=== PATIENT | male | born 1955 | race Caucasian/White ===

== ENCOUNTER 2018-06-28 12:57 | Inpatient (IN) | payer OTHER ==
[~2018-06-28] VITALS: Ht 177.8 cm; Wt 61.1 kg
[2018-06-28] MEDS ORDERED: SOD CHLORIDE 0.9% 1,000 ML IV STA (13:21)
[2018-06-28] MEDS ORDERED: LANT3I SC (14:54)
--- NOTE | 2018-06-28 16:55 | ERD ---
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 The patient resides at a boarding care facility and was sitting down in a chair and starting to eat lunch when he felt a bit dizzy,. The patient then was syncopal for 1-2 minutes. When he woke up he felt just generalized weakness. He denies having any headache chest pain or shortness of breath prior to syncope. No recent illness no trauma. ROS All systems reviewed and are negative except as per history of present illness. Medications Home Meds Reported Medications Insulin Glargine* (Lantus*) 100 Unit/Ml Soln, 30 UNIT SC BID, #1 VIAL 06/28/18 Allergies Allergies: Coded Allergies: No Known Allergy (Unverified , 06/28/18) PMhx/Soc Hx Alcohol Use: No Hx Substance Use: No Hx Tobacco Use: No Smoking Status: Never smoker FmHx Family History: No coronary disease Physical Exam Vitals Vital Signs Date Temp Pulse Resp B/P (MAP) Pulse Ox O2 O2 Flow FiO2 Time Delivery Rate 06/28/18 98.9 66 18 122/81 99 13:11 (95) Physical Exam Const: [Well-developed, well-nourished] Head: [Atraumatic, normocephalic] Eyes: [Normal Conjunctiva, PERRLA, EOMI, normal sclera, no nystagmus] ENT: [Normal External Ears, Nose and Mouth, moist mucus membranes.] Neck: [Full range of motion. No meningismus, no lymphadenopathy.] Resp: [Clear to auscultation bilaterally, no wheezing, rhonchi, rales] Cardio: [Regular rate and rhythm, no murmurs, S1 S2 present] Abd: [Soft, non tender x 4, non distended. Normal bowel sounds, no guarding or rebound, no pulsitile abdominal masses or bruits] Skin: [No petechiae or rashes, no ecchymosis , no maculopapular rash] Back: [No midline or flank tenderness] Ext: [No cyanosis, or edema, FROM x 4, normal inspection, neurovascularly intact x 4] Neur: [Awake and alert, STR 5/5 x 4, sensation intact x 4, no focal findings, cerebellum intact] Psych: [Normal Mood and Affect] Result Diagram: 06/28/18 1329 06/28/18 1329 Results 24 hrs Laboratory Tests Test 06/28/18 13:21 06/28/18 13:29 Bedside Glucose 157 mg/dL White Blood Count 11.5 10^3/ul Red Blood Count 4.09 10^6/ul Hemoglobin 11.9 g/dl Hematocrit 35.7 % Mean Corpuscular Volume 87.3 fl Mean Corpuscular Hemoglobin 29.1 pg Mean Corpuscular Hemoglobin Concent 33.3 g/dl Red Cell Distribution Width 13.2 % Platelet Count 222 10^3/UL Mean Platelet Volume 10.1 fl Immature Granulocytes % 0.300 % Neutrophils % 73.0 % Lymphocytes % 16.8 % Monocytes % 5.3 % Eosinophils % 4.3 % Basophils % 0.3 % Nucleated Red Blood Cells % 0.0 /100WBC Immature Granulocytes # 0.040 10^3/ul Neutrophils # 8.4 10^3/ul Lymphocytes # 1.9 10^3/ul Monocytes # 0.6 10^3/ul Eosinophils # 0.5 10^3/ul Basophils # 0.0 10^3/ul Nucleated Red Blood Cells # 0.0 10^3/ul Sodium Level 142 mmol/L Potassium Level 3.2 mmol/L Chloride Level 106 mmol/L Carbon Dioxide Level 28 mmol/L Anion Gap 8 Blood Urea Nitrogen 10 mg/dl Creatinine 0.55 mg/dl Est Glomerular Filtrat Rate mL/min > 60 mL/min Glucose Level 159 mg/dl Calcium Level 8.9 mg/dl Troponin I < 0.012 ng/ml Current Medications Medications Dose Sig/Dante Start Time Status Last (Trade) Ordered Route PRN Stop Time Admin Dose Reason Admin Sodium 1,000 ml @ Q1H STAT 06/28/18 DC 06/28/18 Chloride 1,000 mls/hr IV 13:21 14:06 06/28/18 14:20 Procedures/MDM Patient: PAM GREENFIELD : 1955 Age: 62 Sex: M MR #: [id number] DOS: 06/28/18 1321 Ordering MD: ESTEFANÍA HAWTHORNE DO Location: E/R Room/Bed: PROCEDURE: CT Brain without contrast. CLINICAL INDICATION: Syncope TECHNIQUE: CT scan of the brain was performed on a multidetector high- resolution CT scan. Axial imaging was obtained of the brain without contrast administration. Coronal and sagittal reformatted images were obtained from the axial source images. Standard CT scan of the head without contrast protocols were performed. The total exam CTDI equals 38.97 mGy and the total exam DLP equals 634.23 mGy- cm. One or more of the following dose reduction techniques were used: - Automated exposure control. - Adjustment of the mA and/or kV according to patient size. Use of iterative reconstruction technique. Dicom images are available COMPARISON: None. FINDINGS: The ventricular system and peripheral CSF spaces are proportionate prominent consistent with moderate generalized cerebral volume loss. No evidence of intracranial masses hemorrhages or midline shift. Mild periventricular deep white matter changes that is nonspecific and consistent with chronic microvascular ischemic disease. The lopez-white matter differentiation is unremarkable. Atherosclerotic vascular disease of the distal vertebral arteries and cavernous carotid arteries. The bones of the calvarium are intact. Mild soft tissue swelling along the posterior superior scalp. No underlying foreign body. IMPRESSION: 1. Moderate generalized cerebral volume loss and mild nonspecific chronic microvascular ischemic disease. 2. No evidence of intracranial masses hemorrhages or midline shift. 3. Mild soft tissue swelling posterior superior scalp without foreign body or underlying calvarial fracture. RPTAT:AAJJ Physician Rohan Date Time Electronically viewed and signed by Physician Rohan on 06/28/2018 14:03 BM/ CC: ESTEFANÍA HAWTHORNE DO [id number] MR #: [id number] DOS: 06/28/18 1321 Ordering MD: ESTEFANÍA HAWTHORNE DO Location: E/R Room/Bed: PROCEDURE: XR Chest. CLINICAL INDICATION: Chest pain TECHNIQUE: Single frontal chest x-ray. COMPARISON: None. FINDINGS: No acute infiltrate, pleural effusion or pneumothorax is identified. Cardiomediastinal silhouette is within normal limits. Aortic atherosclerotic calcification is noted. The osseous structures are remarkable for degenerative enthesopathy of the spine. IMPRESSION: 1. No evidence of acute cardiopulmonary process. 2. Aortic atherosclerosis. RPTAT: AAQQ .Niles Bruno MD, Date Time Electronically viewed and signed by .Niles Bruno MD, on 06/28/2018 14:00 .R/ CC: ESTEFANÍA HAWTHORNE DO [id number] EKG: Rate/Rhythm: Normal Sinus Rhythm,NL intervals QRS, ST, QT: NORMAL TN, QRS, prolonged QT] Impression: Abnormal EKG Patient's syncopal symptoms are unstable at this time and require inpatient workup. No evidence of PE or dissection at this time but occult ischemia or fatal dysrhythmia cannot be ruled out. Departure Diagnosis: Primary Impression: Syncope Syncope type: unspecified Qualified Codes: R55 - Syncope and collapse Condition: Stable ESTEFANÍA HAWTHORNE DO Jun 28, 2018 16:55
[2018-06-28] MEDS ORDERED: SOD CHLORIDE 0.9% 1,000 ML IV SCH (17:17)
[2018-06-28] MEDS ORDERED: ONDANSETRON 4 MG INJ IV PRN ×2 (17:30→20:00)
[2018-06-28] MEDS ORDERED: ACETAMINOPHEN 325 MG TAB PO PRN (17:30)
[2018-06-28] MEDS ORDERED: NACL 0.9% 3 ML SYG IV SCH (20:00)
[2018-06-28] MEDS ORDERED: morphine 2 MG INJ IV PRN (20:00)
[2018-06-28 20:22] VITALS: PULSE 72
[2018-06-28 20:38] VITALS: BP 129/70; PULSE 69; RESP 18
[2018-06-28 20:39] VITALS: Ht 177.8 cm; Wt 61.1 kg
[2018-06-28] MEDS: FAMOTIDINE 20 MG INJ IV SCH (21:33)
[2018-06-28] MEDS: LORAZEPAM 1 MG TAB PO PRN (22:29)
[2018-06-29] VITALS (11 sets, daily range): BP systolic 108–141; BP diastolic 59–83; PULSE 60–75; RESP 18–20
[2018-06-29] MEDS: FAMOTIDINE 20 MG INJ IV SCH (08:26)
[2018-06-29] MEDS: ENOXAPARIN 30 MG/0.3 ML SYG SC SCH (08:32)
--- NOTE | 2018-06-29 12:05 | RADRPT ---
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 Physician: LUCIUS KISER Quality: Good Procedures: Transthoracic echocardiogram with complete 2D, M-Mode, and doppler examination. Indications: Syncope. 2D/M Mode Doppler Measurement Value Normal Ranges Measurement Value Normal Ranges LVIDd 2D 4.9 3.5 - 5.6 cm AV Peak Caleb 0.8 m/sec LVIDs 2D 2.6 2.1 - 4.1 cm AV Peak PG 3.0 mmHg LVPWd 2D 0.9 0.6 - 1.1 cm LVOT Peak Caleb 0.6 m/sec IVSd 2D 1.0 0.6 - 1.1 cm LVOT Peak PG 1.0 mmHg AoR Diam 2D 3.5 2.0 - 3.7 cm MV E Peak Caleb 0.6 m/sec LA/Ao 2D 1 0 - 1 MV A Peak Caleb 0.4 m/sec LA Dimen 2D 2.8 2.3 - 4.0 cm MV E/A 1.4 MV Decel Time 194 msec Lat E` Caleb 0.1 m/sec Lateral E/E` 4.2 MV E/A 1.4 TR Peak Caleb 2.4 m/sec TR Peak PG 23.0 mmHg RVSP 26.0 mmHg RA Pressure 3.0 Findings Left Ventricle: Overall, normal left ventricular systolic function. Not all segments visualized. Normal left ventricular cavity size. Normal left ventricular wall thickness. Ejection fraction is visually estimated at 60 %. Right Ventricle: Normal right ventricular size. Normal right ventricular systolic function. Left Atrium: The left atrium is normal in size. Right Atrium: The right atrium is normal in size. Mitral Valve: Normal appearance and function of the mitral valve with trace physiologic regurgitation. Aortic Valve: Normal appearance of the aortic valve. No significant aortic stenosis or insufficiency. Tricuspid Valve: Normal appearance of the tricuspid valve. Estimated peak PA systolic pressure 26 mmHg. There is trace tricuspid regurgitation. Pulmonic Valve: Normal pulmonic valve appearance. Pericardium: Normal pericardium with no significant pericardial effusion. Aorta: Normal aortic root. IVC: Normal size and normal respiratory collapse consistent with normal right atrial pressure. Conclusions Overall, normal left ventricular systolic function. Not all segments visualized. Normal left ventricular cavity size. Normal left ventricular wall thickness. Ejection fraction is visually estimated at 60 %. Normal right ventricular size. Normal right ventricular systolic function. The left atrium is normal in size. The right atrium is normal in size. No significant valvular stenosis or regurgitation seen. Normal pericardium with no significant pericardial effusion. Electronically Signed By: Vic Evans 29-Jun-2018 12:05:03 -0800 Patient Name: PAM GREENFIELD Study Date: 29-Jun-2018 [id number]
--- NOTE | 2018-06-29 14:50 | HP ---
Date/Time of Note Date/Time of Note DATE: 06/29/18 TIME: 14:48 Assessment/Plan VTE Prophylaxis [place] [facility] [place] risk: 3 SCD applied [place] [facility] No SCD contraindicated: other Pharmacological prophylaxis: LMWH Lines/Catheters IV Catheter Type (from [facility]): Peripheral IV Assessment/Plan Hospital Course 1) syncope - monitor on telemetry - check 2d echo - check carotid doppler 2) diabetes - monitor blood sugar Result Diagram: 06/29/18 0611 06/29/18 0611 Results 24hrs Laboratory Tests Test 06/29/18 06:11 White Blood Count 9.3 Red Blood Count 3.99 L Hemoglobin 11.4 L Hematocrit 34.1 L Mean Corpuscular Volume 85.5 Mean Corpuscular Hemoglobin 28.6 L Mean Corpuscular Hemoglobin Concent 33.4 Red Cell Distribution Width 12.9 Platelet Count 207 Mean Platelet Volume 10.7 H Immature Granulocytes % 0.200 Neutrophils % 56.8 Lymphocytes % 29.2 Monocytes % 7.6 Eosinophils % 5.8 Basophils % 0.4 Nucleated Red Blood Cells % 0.0 Immature Granulocytes # 0.020 Neutrophils # 5.3 Lymphocytes # 2.7 Monocytes # 0.7 Eosinophils # 0.5 Basophils # 0.0 Nucleated Red Blood Cells # 0.0 Sodium Level 141 Potassium Level 3.7 Chloride Level 106 Carbon Dioxide Level 29 Anion Gap 6 Blood Urea Nitrogen 8 Creatinine 0.53 L Est Glomerular Filtrat Rate mL/min > 60 Glucose Level 280 #H Hemoglobin A1c 8.0 H Calcium Level 8.8 Total Bilirubin 0.2 Direct Bilirubin 0.00 Indirect Bilirubin 0.2 Aspartate Amino Transf (AST/SGOT) 17 Alanine Aminotransferase (ALT/SGPT) 19 Alkaline Phosphatase 103 Total Protein 6.2 Albumin 3.2 L Globulin 3.00 Albumin/Globulin Ratio 1.06 HPI/ROS Admit Date/Time Admit Date/Time Jun 28, 2018 at 17:18 Hx of Present Illness Patient with diabetes comes in after having a syncopal episodes lasting several minutes. Patient has no residuals. He states that he has had episodes like this in the past related to narcotic pain medication use. PMH/Family/Social Past Medical History Medical History: diabetes Medications Current Medications IV Flush (NS 3 ml) 3 ml PER PROTOCOL IV ; Start 06/28/18 at 20:00 Ondansetron HCl (Zofran Inj) 4 mg Q6H PRN IV NAUSEA AND/OR VOMITING; Start 06/28/18 at 20:00 Morphine Sulfate (morphine) 2 mg Q4H PRN IV PAIN LEVEL 7-10; Start 06/28/18 at 20:00 Famotidine (Pepcid Iv) 20 mg Q12 IV Last administered on 06/29/18at 08:26; Admin Dose 20 MG; Start 06/28/18 at 21:00 Enoxaparin Sodium (Lovenox) 30 mg DAILY SC Last administered on 06/29/18at 08:32; Admin Dose 30 MG; Start 06/29/18 at 09:00 Lorazepam (Ativan) 1 mg Q6H PRN PO ANXIETY Last administered on 06/28/18at 22:29; Admin Dose 1 MG; Start 06/28/18 at 22:00 Coded Allergies: No Known Allergy (Unverified , 06/28/18) Social History Smoking Status: Current every day smoker Exam/Review of Systems Vital Signs Vitals Vital Signs Date Temp Pulse Resp B/P (MAP) Pulse Ox O2 O2 Flow FiO2 Time Delivery Rate 06/29/18 67 12:24 06/29/18 98.7 19 123/70 98 Room Air 11:15 (87) Intake and Output 06/28/18 06/28/18 06/29/18 1515:00 23:00 07:00 IntakeIntake Total 800 ml OutputOutput Total 700 ml BalanceBalance 100 ml Exam Constitutional: well developed Head: normocephalic, atraumatic Neck: supple Respiratory: clear to auscultation Cardiovascular: regular rate and rhythm Gastrointestinal: soft, non-tender Extremities: normal pulses LUCIUS KISER Jun 29, 2018 14:50
[2018-06-29] MEDS: LORAZEPAM 1 MG TAB PO PRN ×2 (14:56→21:12)
[2018-06-29] MEDS ORDERED: GLUCOSE GEL 15 GRAM TUBE PO PRN ×2 (16:30)
[2018-06-29] MEDS ORDERED: GLUCAGON 1 MG INJ IM PRN (16:30)
[2018-06-29] MEDS ORDERED: DEXTROSE 50% 50 ML SYRINGE IV PRN ×2 (16:30)
[2018-06-29] MEDS ORDERED: GLUCOSE GEL 15 GRAM TUBE BUCCAL PRN (16:30)
[2018-06-29] MEDS: INSULIN ASPART [NOVOLOG] 3 ML PEN SC SCH ×2 (17:39→21:23)
[2018-06-29] MEDS: FAMOTIDINE 20 MG TAB PO SCH (20:16)
[2018-06-29] MEDS: INSULIN GLARGINE [LANTus] (100 UNITS/ML) SYG SC SCH (21:23)
[2018-06-30] VITALS (13 sets, daily range): BP systolic 128–157; BP diastolic 58–86; PULSE 2–75; RESP 16–20
[2018-06-30] MEDS: ACCUCHECK AT 2AM (Patients on SS coverage) XX SCH (02:00)
[2018-06-30] MEDS: morphine LIQ (10 MG/5 ML) CUP PO PRN ×2 (02:23→21:13)
[2018-06-30] MEDS: LORAZEPAM 1 MG TAB PO PRN ×2 (03:08→16:03)
[2018-06-30] MEDS: INSULIN ASPART [NOVOLOG] 3 ML PEN SC SCH ×4 (08:13→21:17)
[2018-06-30] MEDS: FAMOTIDINE 20 MG TAB PO SCH ×2 (09:20→21:07)
[2018-06-30] MEDS: ENOXAPARIN 30 MG/0.3 ML SYG SC SCH (09:26)
[2018-06-30] MEDS: INSULIN GLARGINE [LANTus] (100 UNITS/ML) SYG SC SCH ×2 (09:26→21:17)
--- NOTE | 2018-06-30 11:36 | PN ---
Date/Time of Note Date/Time of Note DATE: 06/30/18 TIME: 11:35 Assessment/Plan VTE Prophylaxis [place] [facility] [place]: 3 [place]CD [place] [facility] [place] No SCD contraindicated: other Pharmacological prophylaxis: LMWH Lines/Catheters IV Catheter Type (from [facility]): Saline Lock Assessment/Plan Hospital Course 1) syncope - monitor on telemetry - check 2d echo - check carotid doppler 2) diabetes - monitor blood sugar 3) debilitation - PT eval and treat Result Diagram: 06/29/18 0611 06/29/18 0611 Results 24hrs Laboratory Tests Test 06/29/18 17:20 06/29/18 17:22 06/29/18 20:15 06/30/18 02:03 Bedside Glucose 426 *H 397 H 482 *H 333 H Test 06/30/18 07:58 Bedside Glucose 294 H Subjective 24 Hr Interval Summary Free Text/Dictation Patient feels weak Exam/Review of Systems Vital Signs Vitals Vital Signs Date Temp Pulse Resp B/P (MAP) Pulse Ox O2 O2 Flow FiO2 Time Delivery Rate 06/30/18 73 08:30 06/30/18 98.7 18 137/77 96 Room Air 07:45 (97) Intake and Output 06/29/18 06/29/18 06/30/18 1515:00 23:00 07:00 IntakeIntake Total 1300 ml 600 ml OutputOutput Total 1100 ml 1450 ml BalanceBalance 200 ml -850 ml Exam Constitutional: well developed Head: normocephalic, atraumatic Neck: supple Respiratory: diminished breath sounds Cardiovascular: regular rate and rhythm Gastrointestinal: soft, non-tender Extremities: normal pulses Medications Medications Current Medications IV Flush (NS 3 ml) 3 ml PER PROTOCOL IV ; Start 06/28/18 at 20:00 Ondansetron HCl (Zofran Inj) 4 mg Q6H PRN IV NAUSEA AND/OR VOMITING; Start 06/28/18 at 20:00 Enoxaparin Sodium (Lovenox) 30 mg DAILY SC Last administered on 06/30/18at 09:26; Admin Dose 30 MG; Start 06/29/18 at 09:00 Lorazepam (Ativan) 1 mg Q6H PRN PO ANXIETY Last administered on 06/30/18at 03:08; Admin Dose 1 MG; Start 06/28/18 at 22:00 Insulin Aspart (Novolog Insulin Pen) NOVOLOG *MODERATE* ALGORITHM WITH MEALS BEDTIME SC Last administered on 06/30/18at 08:13; Admin Dose 8 UNIT; Start 06/29/18 at 17:55 Miscellaneous Information 1 ea NOTE XX ; Start 06/29/18 at 16:30 Glucose (Glutose) 15 gm Q15M PRN PO DECREASED GLUCOSE; Start 06/29/18 at 16:30 Glucose (Glutose) 22.5 gm Q15M PRN PO DECREASED GLUCOSE; Start 06/29/18 at 16:30 Dextrose (D50w Syringe) 25 ml Q15M PRN IV DECREASED GLUCOSE; Start 06/29/18 at 16:30 Dextrose (D50w Syringe) 50 ml Q15M PRN IV DECREASED GLUCOSE; Start 06/29/18 at 16:30 Glucagon (Glucagen) 1 mg Q15M PRN IM DECREASED GLUCOSE; Start 06/29/18 at 16:30 Glucose (Glutose) 15 gm Q15M PRN BUCCAL DECREASED GLUCOSE; Start 06/29/18 at 16:30 Diagnostic Test (Pha) (Accu-Chek) 1 ea 02 XX ; Start 06/30/18 at 02:00 Famotidine (Pepcid) 20 mg Q12 PO Last administered on 06/30/18at 09:20; Admin Dose 20 MG; Start 06/29/18 at 21:00 Insulin Glargine (Lantus) 30 units BID SC Last administered on 06/30/18at 09:26; Admin Dose 30 UNITS; Start 06/29/18 at 21:00 Morphine Sulfate (morphine) 6 mg Q4H PRN PO SEVERE PAIN LEVEL 7-10 Last administered on 06/30/18at 02:23; Admin Dose 6 MG; Start 06/29/18 at 22:30 LUCIUS KISER Jun 30, 2018 11:35
[2018-06-30] MEDS: SOD CHLORIDE 0.9% 1,000 ML IV SCH ×2 (12:03→21:22)
[2018-07-01] VITALS (10 sets, daily range): BP systolic 113–135; BP diastolic 62–73; PULSE 65–74; RESP 18–20
[2018-07-01] MEDS: ACCUCHECK AT 2AM (Patients on SS coverage) XX SCH (02:11)
[2018-07-01] MEDS: SOD CHLORIDE 0.9% 1,000 ML IV SCH ×2 (07:27→17:17)
[2018-07-01] MEDS: INSULIN ASPART [NOVOLOG] 3 ML PEN SC SCH ×4 (07:45→20:25)
[2018-07-01] MEDS: FAMOTIDINE 20 MG TAB PO SCH ×2 (09:33→20:10)
[2018-07-01] MEDS: ENOXAPARIN 30 MG/0.3 ML SYG SC SCH (09:36)
[2018-07-01] MEDS: INSULIN GLARGINE [LANTus] (100 UNITS/ML) SYG SC SCH ×2 (12:10→20:24)
[2018-07-01] MEDS: LORAZEPAM 1 MG TAB PO PRN ×2 (12:34→20:11)
--- NOTE | 2018-07-01 13:14 | PN ---
Date/Time of Note Date/Time of Note DATE: 07/01/18 TIME: 13:13 Assessment/Plan VTE Prophylaxis Risk score (from [facility]0 risk: 5 [place] [facility] [place] SCD contraindicated: other Pharmacological prophylaxis: LMWH Lines/Catheters IV Catheter Type (from [facility]): Saline Lock Assessment/Plan Hospital Course 1) syncope - monitor on telemetry - check 2d echo - check carotid doppler 2) diabetes - monitor blood sugar 3) debilitation - PT eval and treat Result Diagram: 06/29/18 0611 06/29/18 0611 Results 24hrs Laboratory Tests Test 06/30/18 17:23 06/30/18 21:10 07/01/18 02:10 07/01/18 07:31 Bedside Glucose 189 287 H 267 H 236 H Test 07/01/18 12:02 Bedside Glucose 195 Subjective 24 Hr Interval Summary Free Text/Dictation Patient continues to complain of feeling weak, still awaiting physical therapy Exam/Review of Systems Vital Signs Vitals Vital Signs Date Temp Pulse Resp B/P (MAP) Pulse Ox O2 O2 Flow FiO2 Time Delivery Rate 07/01/18 71 12:14 07/01/18 97.7 19 130/63 98 11:36 (85) 06/30/18 Room Air 23:40 Intake and Output 06/30/18 06/30/18 07/01/18 1515:00 23:00 07:00 IntakeIntake Total 1980 ml 960 ml OutputOutput Total 1050 ml 1200 ml BalanceBalance 930 ml -240 ml Exam Constitutional: well developed Head: normocephalic, atraumatic Neck: supple Respiratory: clear to auscultation Cardiovascular: regular rate and rhythm Gastrointestinal: soft, non-tender Extremities: normal pulses Medications Medications Current Medications IV Flush (NS 3 ml) 3 ml PER PROTOCOL IV ; Start 06/28/18 at 20:00 Ondansetron HCl (Zofran Inj) 4 mg Q6H PRN IV NAUSEA AND/OR VOMITING; Start 06/28/18 at 20:00 Enoxaparin Sodium (Lovenox) 30 mg DAILY SC Last administered on 07/01/18at 09:36; Admin Dose 30 MG; Start 06/29/18 at 09:00 Lorazepam (Ativan) 1 mg Q6H PRN PO ANXIETY Last administered on 07/01/18at 12:34; Admin Dose 1 MG; Start 06/28/18 at 22:00 Insulin Aspart (Novolog Insulin Pen) NOVOLOG *MODERATE* ALGORITHM WITH MEALS BEDTIME SC Last administered on 07/01/18at 12:09; Admin Dose 4 UNIT; Start 06/29/18 at 17:55 Miscellaneous Information 1 ea NOTE XX ; Start 06/29/18 at 16:30 Glucose (Glutose) 15 gm Q15M PRN PO DECREASED GLUCOSE; Start 06/29/18 at 16:30 Glucose (Glutose) 22.5 gm Q15M PRN PO DECREASED GLUCOSE; Start 06/29/18 at 16:30 Dextrose (D50w Syringe) 25 ml Q15M PRN IV DECREASED GLUCOSE; Start 06/29/18 at 16:30 Dextrose (D50w Syringe) 50 ml Q15M PRN IV DECREASED GLUCOSE; Start 06/29/18 at 16:30 Glucagon (Glucagen) 1 mg Q15M PRN IM DECREASED GLUCOSE; Start 06/29/18 at 16:30 Glucose (Glutose) 15 gm Q15M PRN BUCCAL DECREASED GLUCOSE; Start 06/29/18 at 16:30 Diagnostic Test (Pha) (Accu-Chek) 1 ea 02 XX Last administered on 07/01/18at 02:11; Admin Dose 1 EA; Start 06/30/18 at 02:00 Famotidine (Pepcid) 20 mg Q12 PO Last administered on 07/01/18at 09:33; Admin Dose 20 MG; Start 06/29/18 at 21:00 Insulin Glargine (Lantus) 30 units BID SC Last administered on 07/01/18at 12:1 0; Admin Dose 30 UNITS; Start 06/29/18 at 21:00 Morphine Sulfate (morphine) 6 mg Q4H PRN PO SEVERE PAIN LEVEL 7-10 Last administered on 06/30/18 21:13; Admin Dose 6 MG; Start 06/29/18 at 22:30 Sodium Chloride 1,000 ml @ 100 mls/hr Q10H IV Last administered on 07/01/18at 07:27; Admin Dose 100 MLS/HR; Start 06/30/18 at 12:00 LUCIUS KISER Jul 01, 2018 13:14
[2018-07-01] MEDS: morphine LIQ (10 MG/5 ML) CUP PO PRN (17:19)
[2018-07-01] MEDS ORDERED: SALINE 0.65% 45 ML NAS SPRAY NASAL SCH (20:00)
[2018-07-01] MEDS: DIPHENHYDRAMINE 50 MG INJ IV PRN (20:11)
[2018-07-02] VITALS (11 sets, daily range): BP systolic 101–125; BP diastolic 59–74; PULSE 69–85; RESP 16–19
[2018-07-02] MEDS: ACCUCHECK AT 2AM (Patients on SS coverage) XX SCH (02:00)
[2018-07-02] MEDS: SOD CHLORIDE 0.9% 1,000 ML IV SCH ×3 (02:28→22:06)
[2018-07-02] MEDS: INSULIN ASPART [NOVOLOG] 3 ML PEN SC SCH ×4 (07:54→21:37)
[2018-07-02] MEDS: FAMOTIDINE 20 MG TAB PO SCH ×2 (09:07→21:33)
[2018-07-02] MEDS: ENOXAPARIN 30 MG/0.3 ML SYG SC SCH (09:14)
[2018-07-02] MEDS: LORAZEPAM 1 MG TAB PO PRN ×2 (12:13→18:20)
[2018-07-02] MEDS: INSULIN GLARGINE [LANTus] (100 UNITS/ML) SYG SC SCH ×2 (12:35→21:49)
--- NOTE | 2018-07-02 13:36 | PN ---
Date/Time of Note Date/Time of Note DATE: 07/02/18 TIME: 13:36 Assessment/Plan VTE Pro[place]axis [place] [facility] [place]: 6 [place] [facility] [place] No SCD contraindicated: other Pharmacological prophylaxis: LMWH Lines/Catheters IV Catheter Type (from [facility] Saline Lock Assessment/Plan Hospital Course 1) syncope - monitor on telemetry - check 2d echo - check carotid doppler 2) diabetes - monitor blood sugar 3) debilitation - PT eval and treat Result Diagram: 06/29/18 0611 06/29/18 0611 Results 24hrs Laboratory Tests Test 07/01/18 17:10 07/01/18 20:19 07/02/18 02:21 07/02/18 07:58 Bedside Glucose 170 318 H 166 55 L Test 07/02/18 09:05 07/02/18 09:06 07/02/18 09:11 07/02/18 12:13 Bedside Glucose 79 95 96 114 Subjective 24 Hr Interval Summary Free Text/Dictation Patient still weak but at least he seems to be more awake Exam/Review of Systems Vital Signs Vitals Vital Signs Date Temp Pulse Resp B/P (MAP) Pulse Ox O2 O2 Flow FiO2 Time Delivery Rate 07/02/18 76 12:11 07/02/18 98.2 18 120/67 97 12:04 (84) 07/02/18 Room Air 07:43 Intake and Output 07/01/18 07/01/18 07/02/18 1515:00 23:00 07:00 IntakeIntake Total 1400 ml 1700 ml OutputOutput Total 200 ml BalanceBalance 1400 ml 1500 ml Exam Head: normocephalic, atraumatic Neck: supple Respiratory: diminished breath sounds Cardiovascular: regular rate and rhythm Gastrointestinal: soft, non-tender Extremities: normal pulses Medications Medications Current Medications IV Flush (NS 3 ml) 3 ml PER PROTOCOL IV ; Start 06/28/18 at 20:00 Ondansetron HCl (Zofran Inj) 4 mg Q6H PRN IV NAUSEA AND/OR VOMITING; Start 06/28/18 at 20:00 Enoxaparin Sodium (Lovenox) 30 mg DAILY SC Last administered on 07/02/18at 09:14; Admin Dose 30 MG; Start 06/29/18 at 09:00 Lorazepam (Ativan) 1 mg Q6H PRN PO ANXIETY Last administered on 07/02/18at 12:13; Admin Dose 1 MG; Start 06/28/18 at 22:00 Insulin Aspart (Novolog Insulin Pen) NOVOLOG *MODERATE* ALGORITHM WITH MEALS BEDTIME SC Last administered on 07/01/18at 20:25; Admin Dose 4 UNIT; Start 06/29/18 at 17:55 Miscellaneous Information 1 ea NOTE XX ; Start 06/29/18 at 16:30 Glucose (Glutose) 15 gm Q15M PRN PO DECREASED GLUCOSE; Start 06/29/18 at 16:30 Glucose (Glutose) 22.5 gm Q15M PRN PO DECREASED GLUCOSE; Start 06/29/18 at 16:30 Dextrose (D50w Syringe) 25 ml Q15M PRN IV DECREASED GLUCOSE; Start 06/29/18 at 16:30 Dextrose (D50w Syringe) 50 ml Q15M PRN IV DECREASED GLUCOSE; Start 06/29/18 at 16:30 Glucagon (Glucagen) 1 mg Q15M PRN IM DECREASED GLUCOSE; Start 06/29/18 at 16:30 Glucose (Glutose) 15 gm Q15M PRN BUCCAL DECREASED GLUCOSE Last administered on 07/02/18at 08:04; Admin Dose 15 GM; Start 06/29/18 at 16:30 Diagnostic Test (Pha) (Accu-Chek) 1 ea 02 XX Last administered on 07/01/18at 02:11; Admin Dose 1 EA; Start 06/30/18 at 02:00 Famotidine (Pepcid) 20 mg Q12 PO Last administered on 07/02/18at 09:07; Admin Dose 20 MG; Start 06/29/18 at 21:00 Morphine Sulfate (morphine) 6 mg Q4H PRN PO SEVERE PAIN LEVEL 7-10 Last administered on 07/01/18at 17:19; Admin Dose 6 MG; Start 06/29/18 at 22:30 Sodium Chloride 1,000 ml @ 100 mls/hr Q10H IV Last administered on 07/02/18at 02:28; Admin Dose 100 MLS/HR; Start 06/30/18 at 12:00 Diphenhydramine HCl (Benadryl) 25 mg Q6H PRN IV ITCHING Last administered on 07/01/18at 20:11; Admin Dose 25 MG; Start 07/01/18 at 19:30 Insulin Glargine (Lantus) 15 units 0900,2100 SC Last administered on 07/02/18at 12:35; Admin Dose 15 UNITS; Start 07/02/18 at 11:30 LUCIUS KISER Jul 02, 2018 13:36
[2018-07-02] MEDS: morphine LIQ (10 MG/5 ML) CUP PO PRN (16:55)
[2018-07-02] MEDS: DIPHENHYDRAMINE 50 MG INJ IV PRN (22:08)
[2018-07-03] MEDS: ACCUCHECK AT 2AM (Patients on SS coverage) XX SCH (01:17)
[2018-07-03] MEDS: LORAZEPAM 1 MG TAB PO PRN ×4 (01:17→21:51)
[2018-07-03 02:00] VITALS: BP 126/71; PULSE 71; RESP 16
[2018-07-03 07:20] VITALS: BP 103/59; PULSE 68; RESP 16
[2018-07-03] MEDS: SOD CHLORIDE 0.9% 1,000 ML IV SCH ×2 (07:48→17:54)
[2018-07-03] MEDS: INSULIN ASPART [NOVOLOG] 3 ML PEN SC SCH ×4 (09:30→21:18)
[2018-07-03] MEDS: FAMOTIDINE 20 MG TAB PO SCH ×2 (09:38→21:15)
[2018-07-03] MEDS: INSULIN GLARGINE [LANTus] (100 UNITS/ML) SYG SC SCH ×2 (09:39→21:16)
[2018-07-03] MEDS: ENOXAPARIN 30 MG/0.3 ML SYG SC SCH (09:40)
--- NOTE | 2018-07-03 13:22 | PN ---
Date/Time of Note Date/Time of Note DATE: 07/03/18 TIME: 13:22 Assessment/Plan VTE Prophylaxis Risk score (from Ns)>0 risk: 3 SCD applied (from Ns): Yes Pharmacological prophylaxis: LMWH Lines/Catheters IV Catheter Type (from Nrs): Saline Lock Assessment/Plan Hospital Course 1) syncope - monitor on telemetry - check 2d echo - check carotid doppler 2) diabetes - monitor blood sugar 3) debilitation - PT eval and treat Result Diagram: 06/29/18 0611 06/29/18 0611 Results 24hrs Laboratory Tests Test 07/02/18 17:32 07/02/18 21:32 07/03/18 01:20 07/03/18 09:18 Bedside Glucose 228 H 241 H 192 62 L Test 07/03/18 09:36 07/03/18 12:31 Bedside Glucose 87 125 Subjective 24 Hr Interval Summary Free Text/Dictation Patient continues to complain of feeling weak Exam/Review of Systems Vital Signs Vitals Vital Signs Date Temp Pulse Resp B/P (MAP) Pulse Ox O2 O2 Flow FiO2 Time Delivery Rate 07/03/18 98.0 68 16 103/59 95 Room Air 07:20 (74) Intake and Output 07/02/18 07/02/18 07/03/18 1515:00 23:00 07:00 IntakeIntake Total 950 ml 1400 ml 1100 ml OutputOutput Total 200 ml 850 ml BalanceBalance 950 ml 1200 ml 250 ml Exam Constitutional: well developed Head: normocephalic, atraumatic Neck: supple Respiratory: diminished breath sounds Cardiovascular: regular rate and rhythm Gastrointestinal: soft, non-tender Extremities: normal pulses Medications Medications Current Medications IV Flush (NS 3 ml) 3 ml PER PROTOCOL IV ; Start 06/28/18 at 20:00 Ondansetron HCl (Zofran Inj) 4 mg Q6H PRN IV NAUSEA AND/OR VOMITING; Start 06/28/18 at 20:00 Enoxaparin Sodium (Lovenox) 30 mg DAILY SC Last administered on 07/03/18at 09:40; Admin Dose 30 MG; Start 06/29/18 at 09:00 Lorazepam (Ativan) 1 mg Q6H PRN PO ANXIETY Last administered on 07/03/18at 09:38; Admin Dose 1 MG; Start 06/28/18 at 22:00 Insulin Aspart (Novolog Insulin Pen) NOVOLOG *MODERATE* ALGORITHM WITH MEALS BEDTIME SC Last administered on 07/02/18at 21:37; Admin Dose 2 UNIT; Start 06/29/18 at 17:55 Miscellaneous Information 1 ea NOTE XX ; Start 06/29/18 at 16:30 Glucose (Glutose) 15 gm Q15M PRN PO DECREASED GLUCOSE; Start 06/29/18 at 16:30 Glucose (Glutose) 22.5 gm Q15M PRN PO DECREASED GLUCOSE; Start 06/29/18 at 16:30 Dextrose (D50w Syringe) 25 ml Q15M PRN IV DECREASED GLUCOSE; Start 06/29/18 at 16:30 Dextrose (D50w Syringe) 50 ml Q15M PRN IV DECREASED GLUCOSE; Start 06/29/18 at 16:30 Glucagon (Glucagen) 1 mg Q15M PRN IM DECREASED GLUCOSE; Start 06/29/18 at 16:30 Glucose (Glutose) 15 gm Q15M PRN BUCCAL DECREASED GLUCOSE Last administered on 07/02/18at 08:04; Admin Dose 15 GM; Start 06/29/18 at 16:30 Diagnostic Test (Pha) (Accu-Chek) 1 ea 02 XX Last administered on 07/03/18 01:17; Admin Dose 1 EA; Start 06/30/18 at 02:00 Famotidine (Pepcid) 20 mg Q12 PO Last administered on 07/03/18 09:38; Admin Dose 20 MG; Start 06/29/18 at 21:00 Morphine Sulfate (morphine) 6 mg Q4H PRN PO SEVERE PAIN LEVEL 7-10 Last administered on 07/02/18at 16:55; Admin Dose 6 MG; Start 06/29/18 at 22:30 Sodium Chloride 1,000 ml @ 100 mls/hr Q10H IV Last administered on 07/03/18 07:48; Admin Dose 100 MLS/HR; Start 06/30/18 at 12:00 Diphenhydramine HCl (Benadryl) 25 mg Q6H PRN IV ITCHING Last administered on 07/02/18at 22:08; Admin Dose 25 MG; Start 07/01/18 at 19:30 Insulin Glargine (Lantus) 15 units 0900,2100 SC Last administered on 1/1/19at 09:39; Admin Dose 15 UNITS; Start 07/02/18 at 11:30 LUCIUS KISER Jul 03, 2018 13:22
[2018-07-03 14:31] VITALS: BP 109/60; PULSE 71; RESP 15
[2018-07-03 19:38] VITALS: BP 116/59; PULSE 74; RESP 16
[2018-07-03] MEDS: DIPHENHYDRAMINE 50 MG INJ IV PRN (22:25)
[2018-07-04 01:16] VITALS: BP 127/70; PULSE 79; RESP 16
[2018-07-04] MEDS: ACCUCHECK AT 2AM (Patients on SS coverage) XX SCH (02:00)
[2018-07-04] MEDS: SOD CHLORIDE 0.9% 1,000 ML IV SCH ×2 (05:15→17:01)
[2018-07-04] MEDS: DIPHENHYDRAMINE 50 MG INJ IV PRN ×2 (05:16→20:19)
[2018-07-04 07:54] VITALS: BP 131/78; PULSE 70; RESP 18
[2018-07-04] MEDS: FAMOTIDINE 20 MG TAB PO SCH ×2 (09:29→20:19)
[2018-07-04] MEDS: INSULIN ASPART [NOVOLOG] 3 ML PEN SC SCH ×4 (09:30→20:21)
[2018-07-04] MEDS: INSULIN GLARGINE [LANTus] (100 UNITS/ML) SYG SC SCH (09:30)
[2018-07-04] MEDS: ENOXAPARIN 30 MG/0.3 ML SYG SC SCH (09:31)
[2018-07-04] MEDS: LORAZEPAM 1 MG TAB PO PRN ×2 (09:38→18:02)
[2018-07-04 15:47] VITALS: BP 121/58; PULSE 72; RESP 19
--- NOTE | 2018-07-04 18:19 | PN ---
Date/Time of Note Date/Time of Note DATE: 07/04/18 TIME: 18:14 Assessment/Plan VTE Prophylaxis Risk score (from Nsg)>0 risk: 3 SCD applied (from Nsg): Yes Pharmacological prophylaxis: LMWH Lines/Catheters IV Catheter Type (from Nrsg): Peripheral IV Assessment/Plan Hospital Course Patient is awake alert, denies any pain. patient refused to work with physical therapy. We will adjust Lantus and NovoLog for better glycemic control. Assessment/Plan -Status post syncope, 2D echo with preserved ejection fraction, brain CT is negative for acute stroke, carotid Doppler is negative for thrombosis. -Diabetes mellitus with hemoglobin A1c of 8.0. Continue Lantus and NovoLog. -Debility, continue PT Further recommendations based on clinical course. Plan of care discussed with Dr. Lerma. Results 24hrs Laboratory Tests Test 07/03/18 21:14 07/04/18 02:37 07/04/18 08:49 07/04/18 12:45 Bedside Glucose 223 H 268 H 174 260 H Test 07/04/18 17:42 Bedside Glucose 221 H Exam/Review of Systems Vital Signs Vitals Vital Signs Date Temp Pulse Resp B/P (MAP) Pulse Ox O2 O2 Flow FiO2 Time Delivery Rate 07/04/18 97.1 72 19 121/58 98 Room Air 15:47 (79) Intake and Output 07/03/18 07/03/18 07/04/18 1515:00 23:00 07:00 IntakeIntake Total 1200 ml 1350 ml 1240 ml OutputOutput Total 1050 ml 100 ml 300 ml BalanceBalance 150 ml 1250 ml 940 ml Exam Constitutional: alert, oriented Neck: supple Respiratory: clear to auscultation Cardiovascular: nl pulses Gastrointestinal: soft, non-tender Musculoskeletal: nl extremities to inspection Extremities: normal pulses Medications Medications Current Medications IV Flush (NS 3 ml) 3 ml PER PROTOCOL IV ; Start 06/28/18 at 20:00 Ondansetron HCl (Zofran Inj) 4 mg Q6H PRN IV NAUSEA AND/OR VOMITING; Start 06/28/18 at 20:00 Enoxaparin Sodium (Lovenox) 30 mg DAILY SC Last administered on 07/04/18at 09:31; Admin Dose 30 MG; Start 06/29/18 at 09:00 Lorazepam (Ativan) 1 mg Q6H PRN PO ANXIETY Last administered on 07/04/18 18:02; Admin Dose 1 MG; Start 06/28/18 at 22:00 Insulin Aspart (Novolog Insulin Pen) NOVOLOG *MODERATE* ALGORITHM WITH MEALS BEDTIME SC Last administered on 07/04/18 17:44; Admin Dose 6 UNIT; Start 06/29/18 at 17:55 Miscellaneous Information 1 ea NOTE XX ; Start 06/29/18 at 16:30 Glucose (Glutose) 15 gm Q15M PRN PO DECREASED GLUCOSE; Start 06/29/18 at 16:30 Glucose (Glutose) 22.5 gm Q15M PRN PO DECREASED GLUCOSE; Start 06/29/18 at 16:30 Dextrose (D50w Syringe) 25 ml Q15M PRN IV DECREASED GLUCOSE; Start 06/29/18 at 16:30 Dextrose (D50w Syringe) 50 ml Q15M PRN IV DECREASED GLUCOSE; Start 06/29/18 at 16:30 Glucagon (Glucagen) 1 mg Q15M PRN IM DECREASED GLUCOSE; Start 06/29/18 at 16:30 Glucose (Glutose) 15 gm Q15M PRN BUCCAL DECREASED GLUCOSE Last administered on 07/02/18 08:04; Admin Dose 15 GM; Start 06/29/18 at 16:30 Diagnostic Test (Pha) (Accu-Chek) 1 ea 02 XX Last administered on 07/04/18 02:00; Admin Dose 1 EA; Start 06/30/18 at 02:00 Famotidine (Pepcid) 20 mg Q12 PO Last administered on 07/04/18 09:29; Admin Dose 20 MG; Start 06/29/18 at 21:00 Morphine Sulfate (morphine) 6 mg Q4H PRN PO SEVERE PAIN LEVEL 7-10 Last admi nistered on 07/02/18 16:55; Admin Dose 6 MG; Start 06/29/18 at 22:30 Sodium Chloride 1,000 ml @ 100 mls/hr Q10H IV Last administered on 07/04/18 17:01; Admin Dose 100 MLS/HR; Start 06/30/18 at 12:00 Diphenhydramine HCl (Benadryl) 25 mg Q6H PRN IV ITCHING Last administered on 07/04/18 05:16; Admin Dose 25 MG; Start 07/01/18 at 19:30 Insulin Glargine (Lantus) 15 units 0900,2100 SC Last administered on 07/04/18at 09:30; Admin Dose 15 UNITS; Start 07/02/18 at 11:30 SUJATA COLVIN Jul 04, 2018 18:19
[2018-07-04 19:46] VITALS: BP 102/55; PULSE 70; RESP 18
[2018-07-04] MEDS ORDERED: INSULIN GLARGINE [LANTus] (100 UNITS/ML) SYG SC SCH (20:00)
[2018-07-05] MEDS: LORAZEPAM 1 MG TAB PO PRN ×3 (00:17→13:25)
[2018-07-05 01:29] VITALS: BP 130/78; PULSE 70; RESP 18
[2018-07-05] MEDS: SOD CHLORIDE 0.9% 1,000 ML IV SCH ×4 (02:33→22:52)
[2018-07-05] MEDS: ACCU-CHEK XX SCH ×2 (02:41→22:58)
[2018-07-05] MEDS ORDERED: INSULIN ASPART [NOVOLOG] 3 ML PEN SC ONE (06:08)
[2018-07-05 07:35] VITALS: BP 91/55; PULSE 80; RESP 18
[2018-07-05] MEDS: FAMOTIDINE 20 MG TAB PO SCH ×2 (10:17→21:00)
[2018-07-05] MEDS: ENOXAPARIN 30 MG/0.3 ML SYG SC SCH (10:19)
[2018-07-05] MEDS: INSULIN ASPART [NOVOLOG] 3 ML PEN SC SCH ×7 (10:27→21:00)
[2018-07-05 14:00] VITALS: BP 98/56; PULSE 76; RESP 18
--- NOTE | 2018-07-05 14:13 | PN ---
Date/Time of Note Date/Time of Note DATE: 07/05/18 TIME: 14:11 Assessment/Plan VTE Prophylaxis Risk score (from Nsg)>0 risk: 4 SCD applied (from Nsg): Yes Pharmacological prophylaxis: LMWH Lines/Catheters IV Catheter Type (from Nrsg): Peripheral IV Central line still needed: Yes Urinary Cath still in place: No Assessment/Plan Hospital Course Patient refused to work with physical therapy previously, I had a conversation with patient encouraged to allow assessment by physical therapy. Patient had elevated sugar in the morning had a large meal at night. Assessment/Plan -Status post syncope, 2D echo with preserved ejection fraction, brain CT is negative for acute stroke, carotid Doppler is negative for thrombosis. -Diabetes mellitus with hemoglobin A1c of 8.0. Continue Lantus and NovoLog. -Debility, continue PT -Homelessness Further recommendations based on clinical course. Plan of care discussed with Dr. Lerma. Result Diagram: 07/05/18 0432 07/05/18 0432 Results 24hrs Laboratory Tests Test 07/04/18 17:42 07/04/18 20:10 07/05/18 02:38 07/05/18 04:32 Bedside Glucose 221 H 236 H 440 *H White Blood Count 10.5 Red Blood Count 3.99 L Hemoglobin 11.6 L Hematocrit 35.2 L Mean Corpuscular Volume 88.2 Mean Corpuscular 29.1 Hemoglobin Mean Corpuscular 33.0 Hemoglobin Concent Red Cell Distribution 13.0 Width Platelet Count 236 Mean Platelet Volume 11.1 H Immature Granulocytes % 0.400 Neutrophils % 61.6 Lymphocytes % 22.3 Monocytes % 9.0 Eosinophils % 6.3 Basophils % 0.4 Nucleated Red Blood 0.0 Cells % Immature Granulocytes # 0.040 H Neutrophils # 6.5 Lymphocytes # 2.3 Monocytes # 1.0 H Eosinophils # 0.7 H Basophils # 0.0 Nucleated Red Blood 0.0 Cells # Sodium Level 137 Potassium Level 4.9 Chloride Level 100 Carbon Dioxide Level 25 Anion Gap 12 Blood Urea Nitrogen 15 Creatinine 0.61 Est Glomerular Filtrat > 60 Rate mL/min Glucose Level 506 *H Calcium Level 9.4 Test 07/05/18 08:38 07/05/18 10:25 07/05/18 13:20 Bedside Glucose 228 H 200 165 Exam/Review of Systems Vital Signs Vitals Vital Signs Date Temp Pulse Resp B/P (MAP) Pulse Ox O2 O2 Flow FiO2 Time Delivery Rate 07/05/18 98.3 80 18 91/55 (67) 96 Room Air 07:35 Intake and Output 07/04/18 07/04/18 07/05/18 1515:00 23:00 07:00 IntakeIntake Total 250 ml 250 ml 2200 ml OutputOutput Total 351 ml 200 ml 350 ml BalanceBalance -101 ml 50 ml 1850 ml Exam Constitutional: alert, oriented Neck: supple Respiratory: clear to auscultation Cardiovascular: nl pulses Gastrointestinal: soft, non-tender Musculoskeletal: nl extremities to inspection Extremities: normal pulses Medications Medications Current Medications IV Flush (NS 3 ml) 3 ml PER PROTOCOL IV ; Start 06/28/18 at 20:00 Ondansetron HCl (Zofran Inj) 4 mg Q6H PRN IV NAUSEA AND/OR VOMITING; Start 06/28/18 at 20:00 Enoxaparin Sodium (Lovenox) 30 mg DAILY SC Last administered on 07/05/18at 10:19; Admin Dose 30 MG; Start 06/29/18 at 09:00 Lorazepam (Ativan) 1 mg Q6H PRN PO ANXIETY Last administered on 07/05/18at 13:25; Admin Dose 1 MG; Start 06/28/18 at 22:00 Miscellaneous Information 1 ea NOTE XX ; Start 06/29/18 at 16:30 Glucose (Glutose) 15 gm Q15M PRN PO DECREASED GLUCOSE; Start 06/29/18 at 16:30 Glucose (Glutose) 22.5 gm Q15M PRN PO DECREASED GLUCOSE; Start 06/29/18 at 16:30 Dextrose (D50w Syringe) 25 ml Q15M PRN IV DECREASED GLUCOSE; Start 06/29/18 at 16:30 Dextrose (D50w Syringe) 50 ml Q15M PRN IV DECREASED GLUCOSE; Start 06/29/18 at 16:30 Glucagon (Glucagen) 1 mg Q15M PRN IM DECREASED GLUCOSE; Start 06/29/18 at 16:30 Glucose (Glutose) 15 gm Q15M PRN BUCCAL DECREASED GLUCOSE Last administered on 07/02/18at 08:04; Admin Dose 15 GM; Start 06/29/18 at 16:30 Famotidine (Pepcid) 20 mg Q12 PO Last administered on 07/05/18 10:17; Admin Dose 20 MG; Start 06/29/18 at 21:00 Morphine Sulfate (morphine) 6 mg Q4H PRN PO SEVERE PAIN LEVEL 7-10 Last administered on 07/02/18 16:55; Admin Dose 6 MG; Start 06/29/18 at 22:30 Sodium Chloride 1,000 ml @ 100 mls/hr Q10H IV Last administered on 07/05/18 13:21; Admin Dose 100 MLS/HR; Start 06/30/18 at 12:00 Diphenhydramine HCl (Benadryl) 25 mg Q6H PRN IV ITCHING Last administered on 07/04/18 20:19; Admin Dose 25 MG; Start 07/01/18 at 19:30 Diagnostic Test (Pha) (Accu-Chek) 1 ea 02 XX Last administered on 07/05/18 02:41; Admin Dose 1 EA; Start 07/05/18 at 02:00 Insulin Glargine (Lantus) 18 units DAILY@2000 SC Last administered on 07/04/18 20:21; Admin Dose 18 UNITS; Start 07/04/18 at 20:00 Insulin Aspart (Novolog Insulin Pen) 6 unit WITH MEALS SC Last administered on 07/05/18 13:22; Admin Dose 6 UNIT; Start 07/05/18 at 07:50 Insulin Aspart (Novolog Insulin Pen) NOVOLOG *MILD* ALGORITHM WITH MEALS BEDTIME SC Last administered on 07/05/18 13:23; Admin Dose 1 UNIT; Start 07/04/18 at 21:00 SUJATA COLVIN Jul 05, 2018 14:13
[2018-07-05] MEDS: morphine LIQ (10 MG/5 ML) CUP PO PRN ×2 (18:29→22:47)
[2018-07-05] MEDS ORDERED: INSULIN GLARGINE [LANTus] (100 UNITS/ML) SYG SC SCH (20:00)
[2018-07-05 20:11] VITALS: BP 82/52; PULSE 69; RESP 18
[2018-07-06 02:03] VITALS: BP 92/56; PULSE 72; RESP 18
[2018-07-06 08:13] VITALS: BP 100/66; PULSE 70; RESP 18
[2018-07-06] MEDS: SOD CHLORIDE 0.9% 1,000 ML IV SCH ×2 (08:42→18:45)
[2018-07-06] MEDS: FAMOTIDINE 20 MG TAB PO SCH ×2 (08:43→20:15)
[2018-07-06] MEDS: ENOXAPARIN 30 MG/0.3 ML SYG SC SCH (08:45)
[2018-07-06] MEDS: INSULIN ASPART [NOVOLOG] 3 ML PEN SC SCH ×7 (10:39→20:14)
[2018-07-06] MEDS: DIPHENHYDRAMINE 50 MG INJ IV PRN ×2 (13:45→21:22)
[2018-07-06 14:00] VITALS: BP 96/57; PULSE 68; RESP 18
--- NOTE | 2018-07-06 15:43 | PN ---
Date/Time of Note Date/Time of Note DATE: 07/06/18 TIME: 15:40 Assessment/Plan VTE [place] [facility] [place]: 3 [place] [facility] [place] SCD contraindicated: other Pharmacological prophylaxis: other Pharm contraindication: other Lines/Catheters IV [facility] Type (from [facility] Peripheral IV Urinary Cath still in place: No Assessment/Plan Assessment/Plan -Status post syncope, 2D echo with preserved ejection fraction, brain CT is negative for acute stroke, carotid Doppler is negative for thrombosis. -Diabetes mellitus with hemoglobin A1c of 8.0. Continue Lantus and NovoLog. -Debility, continue PT -Homelessness Further recommendations based on clinical course. Plan of care discussed with Dr. Lerma. Result Diagram: 07/05/18 0432 07/05/18 0432 Results 24hrs Laboratory Tests Test 07/05/18 18:03 07/05/18 20:45 07/05/18 21:51 07/06/18 08:40 Bedside Glucose 83 78 117 198 Test 07/06/18 10:36 07/06/18 13:06 Bedside Glucose 157 100 Exam/Review of Systems Vital Signs Vitals Vital Signs Date Temp Pulse Resp B/P (MAP) Pulse Ox O2 O2 Flow FiO2 Time Delivery Rate 07/06/18 97.3 68 18 96/57 (70) 99 Room Air 14:00 Intake and Output 07/05/18 07/05/18 07/06/18 1515:00 23:00 07:00 IntakeIntake Total 1250 ml 1400 ml 600 ml OutputOutput Total 2 ml BalanceBalance 1248 ml 1400 ml 600 ml Medications Medications Current Medications IV Flush (NS 3 ml) 3 ml PER PROTOCOL IV ; Start 06/28/18 at 20:00 Ondansetron HCl (Zofran Inj) 4 mg Q6H PRN IV NAUSEA AND/OR VOMITING; Start 06/28/18 at 20:00 Enoxaparin Sodium (Lovenox) 30 mg DAILY SC Last administered on 07/06/18at 08:45; Admin Dose 30 MG; Start 06/29/18 at 09:00 Lorazepam (Ativan) 1 mg Q6H PRN PO ANXIETY Last administered on 07/05/18at 13:25; Admin Dose 1 MG; Start 06/28/18 at 22:00 Miscellaneous Information 1 ea NOTE XX ; Start 06/29/18 at 16:30 Glucose (Glutose) 15 gm Q15M PRN PO DECREASED GLUCOSE; Start 06/29/18 at 16:30 Glucose (Glutose) 22.5 gm Q15M PRN PO DECREASED GLUCOSE; Start 06/29/18 at 16:30 Dextrose (D50w Syringe) 25 ml Q15M PRN IV DECREASED GLUCOSE; Start 06/29/18 at 16:30 Dextrose (D50w Syringe) 50 ml Q15M PRN IV DECREASED GLUCOSE; Start 06/29/18 at 16:30 Glucagon (Glucagen) 1 mg Q15M PRN IM DECREASED GLUCOSE; Start 06/29/18 at 16:30 Glucose (Glutose) 15 gm Q15M PRN BUCCAL DECREASED GLUCOSE Last administered on 07/02/18 08:04; Admin Dose 15 GM; Start 06/29/18 at 16:30 Famotidine (Pepcid) 20 mg Q12 PO Last administered on 07/06/18 08:43; Admin Dose 20 MG; Start 06/29/18 at 21:00 Morphine Sulfate (morphine) 6 mg Q4H PRN PO SEVERE PAIN LEVEL 7-10 Last administered on 07/05/18 22:47; Admin Dose 6 MG; Start 06/29/18 at 22:30 Sodium Chloride 1,000 ml @ 100 mls/hr Q10H IV Last administered on 07/06/18 08:42; Admin Dose 100 MLS/HR; Start 06/30/18 at 12:00 Diphenhydramine HCl (Benadryl) 25 mg Q6H PRN IV ITCHING Last administered on 07/06/18 13:45; Admin Dose 25 MG; Start 07/01/18 at 19:30 Diagnostic Test (Pha) (Accu-Chek) 1 ea 02 XX Last administered on 07/05/18 02:41; Admin Dose 1 EA; Start 07/05/18 at 02:00 Insulin Aspart (Novolog Insulin Pen) NOVOLOG *MILD* ALGORITHM WITH MEALS BEDTIME SC Last administered on 07/06/18 10:39; Admin Dose 1 UNIT; Start 07/04/18 at 21:00 Insulin Aspart (Novolog Insulin Pen) 7 unit WITH MEALS SC Last administered on 07/06/18 13:11; Admin Dose 7 UNIT; Start 07/05/18 at 17:55 Insulin Glargine (Lantus) 15 units DAILY@2000 SC ; Start 07/06/18 at 20:00 CHRIS DEL REAL Jul 06, 2018 15:43
[2018-07-06] MEDS: CROMOLYN 4% 26ML NAS INH NASAL SCH ×2 (16:49→20:15)
[2018-07-06] MEDS: morphine LIQ (10 MG/5 ML) CUP PO PRN (18:49)
[2018-07-06 19:42] VITALS: BP 130/70; PULSE 72; RESP 18
[2018-07-06] MEDS: INSULIN GLARGINE [LANTus] (100 UNITS/ML) SYG SC SCH (20:15)
[2018-07-06] MEDS: LORAZEPAM 1 MG TAB PO PRN (21:26)
[2018-07-07] MEDS: morphine LIQ (10 MG/5 ML) CUP PO PRN (01:13)
[2018-07-07 02:00] VITALS: BP 117/71; PULSE 76; RESP 20
[2018-07-07] MEDS: ACCU-CHEK XX SCH (02:14)
[2018-07-07] MEDS: DIPHENHYDRAMINE 50 MG INJ IV PRN ×3 (03:23→21:04)
[2018-07-07] MEDS: LORAZEPAM 1 MG TAB PO PRN ×3 (03:23→21:02)
[2018-07-07 08:30] VITALS: BP 107/65; PULSE 75; RESP 18
[2018-07-07] MEDS: INSULIN ASPART [NOVOLOG] 3 ML PEN SC SCH ×7 (08:58→20:53)
[2018-07-07] MEDS: FAMOTIDINE 20 MG TAB PO SCH ×2 (08:59→20:52)
[2018-07-07] MEDS: CROMOLYN 4% 26ML NAS INH NASAL SCH ×3 (08:59→20:52)
[2018-07-07] MEDS: ENOXAPARIN 30 MG/0.3 ML SYG SC SCH (09:03)
--- NOTE | 2018-07-07 15:38 | PN ---
Date/Time of Note Date/Time of Note DATE: 07/07/18 TIME: 15:37 Assessment/Plan VTE Prophylaxis [place] [facility] [place] risk: 3 SCD applied (from [facility] [place] Yes SCD contraindicated: other Pharmacological prophylaxis: other Pharm contraindication: other Lines/Catheters IV Catheter Type (from [facility]): Saline Lock Urinary Cath still in place: No Assessment/Plan Assessment/Plan -Status post syncope, 2D echo with preserved ejection fraction, brain CT is negative for acute stroke, carotid Doppler is negative for thrombosis. -Diabetes mellitus with hemoglobin A1c of 8.0. Continue Lantus and NovoLog. -Debility, continue PT -Homelessness Further recommendations based on clinical course. Plan of care discussed with Dr. Lerma. Result Diagram: 07/05/1843107/05/18 0432 Results 24hrs Laboratory Tests Test 07/06/18 18:06 07/06/18 20:03 07/07/18 01:58 07/07/18 08:21 Bedside Glucose 204 216 205 189 Test 07/07/18 12:47 Bedside Glucose 92 Subjective 24 Hr Interval Summary Eyes: no complaints ENT: no complaints Exam/Review of Systems Vital Signs Vitals Vital Signs Date Temp Pulse Resp B/P (MAP) Pulse Ox O2 O2 Flow FiO2 Time Delivery Rate 07/07/18 98.0 75 18 107/65 96 Room Air 08:30 (79) Intake and Output 07/06/18 07/06/18 07/07/18 1515:00 23:00 07:00 IntakeIntake Total 650 ml 1950 ml OutputOutput Total 900 ml 1501 ml 400 ml BalanceBalance -250 ml 449 ml -400 ml Medications Medications Current Medications IV Flush (NS 3 ml) 3 ml PER PROTOCOL IV ; Start 06/28/18 at 20:00 Ondansetron HCl (Zofran Inj) 4 mg Q6H PRN IV NAUSEA AND/OR VOMITING; Start 1 08/29/17 at 20:00 Enoxaparin Sodium (Lovenox) 30 mg DAILY SC Last administered on 07/07/18at 09:03; Admin Dose 30 MG; Start 06/29/18 at 09:00 Lorazepam (Ativan) 1 mg Q6H PRN PO ANXIETY Last administered on 07/07/18at 13:33; Admin Dose 1 MG; Start 06/28/18 at 22:00 Miscellaneous Information 1 ea NOTE XX ; Start 06/29/18 at 16:30 Glucose (Glutose) 15 gm Q15M PRN PO DECREASED GLUCOSE; Start 06/29/18 at 16:30 Glucose (Glutose) 22.5 gm Q15M PRN PO DECREASED GLUCOSE; Start 06/29/18 at 16:30 Dextrose (D50w Syringe) 25 ml Q15M PRN IV DECREASED GLUCOSE; Start 06/29/18 at 16:30 Dextrose (D50w Syringe) 50 ml Q15M PRN IV DECREASED GLUCOSE; Start 06/29/18 at 16:30 Glucagon (Glucagen) 1 mg Q15M PRN IM DECREASED GLUCOSE; Start 06/29/18 at 16:30 Glucose (Glutose) 15 gm Q15M PRN BUCCAL DECREASED GLUCOSE Last administered on 07/02/18at 08:04; Admin Dose 15 GM; Start 06/29/18 at 16:30 Famotidine (Pepcid) 20 mg Q12 PO Last administered on 07/07/18 08:59; Admin Dose 20 MG; Start 06/29/18 at 21:00 Morphine Sulfate (morphine) 6 mg Q4H PRN PO SEVERE PAIN LEVEL 7-10 Last administered on 07/07/18 01:13; Admin Dose 6 MG; Start 06/29/18 at 22:30 Diphenhydramine HCl (Benadryl) 25 mg Q6H PRN IV ITCHING Last administered on 07/07/18 13:29; Admin Dose 25 MG; Start 07/01/18 at 19:30 Diagnostic Test (Pha) (Accu-Chek) 1 ea 02 XX Last administered on 07/07/18 02:14; Admin Dose 1 EA; Start 07/05/18 at 02:00 Insulin Aspart (Novolog Insulin Pen) NOVOLOG *MILD* ALGORITHM WITH MEALS BEDTIME SC Last administered on 07/07/18 08:58; Admin Dose 2 UNIT; Start 07/04/18 at 21:00 Insulin Aspart (Novolog Insulin Pen) 7 unit WITH MEALS SC Last administered on 07/07/18 13:04; Admin Dose 7 UNIT; Start 07/05/18 at 17:55 Insulin Glargine (Lantus) 15 units DAILY@2000 SC Last administered on 1/4/19at 20:15; Admin Dose 15 UNITS; Start 07/06/18 at 20:00 Cromolyn Sodium (Nasalcrom) 1 spray TID NASAL Last administered on 07/07/18at 08:59; Admin Dose 1 SPRAY; Start 07/06/18 at 21:00 CHRIS DEL REAL Jul 07, 2018 15:38
[2018-07-07 19:40] VITALS: BP_SYST 120; BP_SYST 86; BP_DIAS 52; BP_DIAS 63; PULSE 71; PULSE 78; RESP 20
[2018-07-07] MEDS: INSULIN GLARGINE [LANTus] (100 UNITS/ML) SYG SC SCH (20:58)
[2018-07-07 21:00] VITALS: BP 100/60; PULSE 81; RESP 18
[2018-07-08 02:00] VITALS: BP 100/65; PULSE 70; RESP 20
[2018-07-08] MEDS: ACCU-CHEK XX SCH (02:27)
[2018-07-08 07:36] VITALS: BP 95/64; PULSE 76; RESP 14
[2018-07-08] MEDS: FAMOTIDINE 20 MG TAB PO SCH ×2 (08:42→20:10)
[2018-07-08] MEDS: ENOXAPARIN 30 MG/0.3 ML SYG SC SCH (08:43)
[2018-07-08] MEDS: INSULIN ASPART [NOVOLOG] 3 ML PEN SC SCH ×7 (08:43→20:16)
[2018-07-08] MEDS: CROMOLYN 4% 26ML NAS INH NASAL SCH ×3 (08:44→20:11)
--- NOTE | 2018-07-08 14:28 | PN ---
Date/Time of Note Date/Time of Note DATE: 07/08/18 TIME: 14:27 Assessment/Plan VTE Prophylaxis Risk score (from [facility])>0 risk: 3 SCD applied (from [facility]): Yes SCD contraindicated: other Pharmacological prophylaxis: other Pharm contraindication: other Lines/Catheters IV Catheter Type (from [facility]): Peripheral IV Urinary Cath still in place: No Assessment/Plan Assessment/Plan -Status post syncope, 2D echo with preserved ejection fraction, brain CT is negative for acute stroke, carotid Doppler is negative for thrombosis. -Diabetes mellitus with hemoglobin A1c of 8.0. Continue Lantus and NovoLog. -Debility, continue PT -Homelessness Further recommendations based on clinical course. Plan of care discussed with Dr. Lerma. Result Diagram: 07/08/1842807/08/18428 Results 24hrs Laboratory Tests Test 07/07/18 16:10 07/07/18 17:35 07/07/18 20:31 07/08/18 02:08 White Blood Count 10.8 Red Blood Count 3.87 L Hemoglobin 11.2 L Hematocrit 33.2 L Mean Corpuscular Volume 85.8 Mean Corpuscular 28.9 L Hemoglobin Mean Corpuscular 33.7 Hemoglobin Concent Red Cell Distribution 13.1 Width Platelet Count 249 Mean Platelet Volume 10.6 H Immature Granulocytes % 0.400 Neutrophils % 61.6 Lymphocytes % 20.6 Monocytes % 10.9 Eosinophils % 6.1 Basophils % 0.4 Nucleated Red Blood 0.0 Cells % Immature Granulocytes # 0.040 H Neutrophils # 6.6 Lymphocytes # 2.2 Monocytes # 1.2 H Eosinophils # 0.7 H Basophils # 0.0 Nucleated Red Blood 0.0 Cells # Sodium Level 134 L Potassium Level 4.4 Chloride Level 99 Carbon Dioxide Level 27 Anion Gap 8 Blood Urea Nitrogen 21 H Creatinine 0.64 Est Glomerular Filtrat > 60 Rate mL/min Glucose Level 134 Calcium Level 9.2 Bedside Glucose 121 136 247 H Test 07/08/18 04:29 07/08/18 08:28 07/08/18 12:47 White Blood Count 10.6 Red Blood Count 4.41 L Hemoglobin 12.6 L Hematocrit 37.9 L Mean Corpuscular Volume 85.9 Mean Corpuscular 28.6 L Hemoglobin Mean Corpuscular 33.2 Hemoglobin Concent Red Cell Distribution 13.0 Width Platelet Count 265 Mean Platelet Volume 11.0 H Immature Granulocytes % 0.400 Neutrophils % 58.8 Lymphocytes % 22.3 Monocytes % 11.3 H Eosinophils % 6.7 Basophils % 0.5 Nucleated Red Blood 0.0 Cells % Immature Granulocytes # 0.040 H Neutrophils # 6.2 Lymphocytes # 2.4 Monocytes # 1.2 H Eosinophils # 0.7 H Basophils # 0.1 Nucleated Red Blood 0.0 Cells # Sodium Level 138 Potassium Level 4.4 Chloride Level 101 Carbon Dioxide Level 27 Anion Gap 10 Blood Urea Nitrogen 22 H Creatinine 0.64 Est Glomerular Filtrat > 60 Rate mL/min Glucose Level 235 #H Calcium Level 9.4 Bedside Glucose 197 97 Exam/Review of Systems Vital Signs Vitals Vital Signs Date Temp Pulse Resp B/P (MAP) Pulse Ox O2 O2 Flow FiO2 Time Delivery Rate 07/08/18 98.3 76 14 95/64 (74) 95 Room Air 07:36 Intake and Output 07/07/18 07/07/18 07/08/18 1515:00 23:00 07:00 IntakeIntake Total 240 ml 1240 ml OutputOutput Total 200 ml 400 ml 100 ml BalanceBalance 40 ml 840 ml -100 ml Medications Medications Current Medications IV Flush (NS 3 ml) 3 ml PER PROTOCOL IV ; Start 06/28/18 at 20:00 Ondansetron HCl (Zofran Inj) 4 mg Q6H PRN IV NAUSEA AND/OR VOMITING; Start 06/28/18 at 20:00 Enoxaparin Sodium (Lovenox) 30 mg DAILY SC Last administered on 07/08/18at 08:43; Admin Dose 30 MG; Start 06/29/18 at 09:00 Lorazepam (Ativan) 1 mg Q6H PRN PO ANXIETY Last administered on 07/07/18at 21:02; Admin Dose 1 MG; Start 06/28/18 at 22:00 Miscellaneous Information 1 ea NOTE XX ; Start 06/29/18 at 16:30 Glucose (Glutose) 15 gm Q15M PRN PO DECREASED GLUCOSE; Start 06/29/18 at 16:30 Glucose (Glutose) 22.5 gm Q15M PRN PO DECREASED GLUCOSE; Start 06/29/18 at 16:30 Dextrose (D50w Syringe) 25 ml Q15M PRN IV DECREASED GLUCOSE; Start 06/29/18 at 16:30 Dextrose (D50w Syringe) 50 ml Q15M PRN IV DECREASED GLUCOSE; Start 06/29/18 at 16:30 Glucagon (Glucagen) 1 mg Q15M PRN IM DECREASED GLUCOSE; Start 06/29/18 at 16:30 Glucose (Glutose) 15 gm Q15M PRN BUCCAL DECREASED GLUCOSE Last administered on 07/02/18 08:04; Admin Dose 15 GM; Start 06/29/18 at 16:30 Famotidine (Pepcid) 20 mg Q12 PO Last administered on 07/08/18 08:42; Admin Dose 20 MG; Start 06/29/18 at 21:00 Morphine Sulfate (morphine) 6 mg Q4H PRN PO SEVERE PAIN LEVEL 7-10 Last ad ministered on 07/07/18 01:13; Admin Dose 6 MG; Start 06/29/18 at 22:30 Diphenhydramine HCl (Benadryl) 25 mg Q6H PRN IV ITCHING Last administered on 07/07/18 21:04; Admin Dose 25 MG; Start 07/01/18 at 19:30 Diagnostic Test (Pha) (Accu-Chek) 1 ea 02 XX Last administered on 07/08/18 02:27; Admin Dose 1 EA; Start 07/05/18 at 02:00 Insulin Aspart (Novolog Insulin Pen) NOVOLOG *MILD* ALGORITHM WITH MEALS BEDTIME SC Last administered on 07/08/18 08:43; Admin Dose 1 UNIT; Start 07/04/18 at 21:00 Insulin Aspart (Novolog Insulin Pen) 7 unit WITH MEALS SC Last administered on 07/08/18 12:49; Admin Dose 7 UNIT; Start 07/05/18 at 17:55 Insulin Glargine (Lantus) 15 units DAILY@2000 SC Last administered on 07/07/18 20:58; Admin Dose 15 UNITS; Start 07/06/18 at 20:00 Cromolyn Sodium (Nasalcrom) 1 spray TID NASAL Last administered on 07/07/18 20:52; Admin Dose 1 SPRAY; Start 07/06/18 at 21:00 CHRIS DEL REAL Jul 08, 2018 14:28
[2018-07-08] MEDS: DIPHENHYDRAMINE 50 MG INJ IV PRN (16:14)
[2018-07-08] MEDS: LORAZEPAM 1 MG TAB PO PRN ×2 (16:14→23:15)
[2018-07-08 19:47] VITALS: BP 111/71; PULSE 74; RESP 18
[2018-07-08] MEDS: INSULIN GLARGINE [LANTus] (100 UNITS/ML) SYG SC SCH (20:17)
[2018-07-08] MEDS: morphine LIQ (10 MG/5 ML) CUP PO PRN (20:19)
[2018-07-08] MEDS ORDERED: INSULIN GLARGINE [LANTus] (100 UNITS/ML) SYG SC ONE (22:00)
[2018-07-09 01:50] VITALS: BP 110/76; PULSE 73; RESP 16
[2018-07-09] MEDS: morphine LIQ (10 MG/5 ML) CUP PO PRN ×4 (02:06→21:58)
[2018-07-09] MEDS: ACCU-CHEK XX SCH ×2 (02:13→20:51)
[2018-07-09] MEDS: LORAZEPAM 1 MG TAB PO PRN ×3 (05:13→21:53)
[2018-07-09] MEDS: DIPHENHYDRAMINE 50 MG INJ IV PRN ×2 (06:32→21:58)
[2018-07-09 07:42] VITALS: BP 101/53; PULSE 73; RESP 18
[2018-07-09] MEDS: CROMOLYN 4% 26ML NAS INH NASAL SCH ×3 (08:26→20:46)
[2018-07-09] MEDS: FAMOTIDINE 20 MG TAB PO SCH ×2 (08:26→20:50)
[2018-07-09] MEDS: ENOXAPARIN 30 MG/0.3 ML SYG SC SCH (08:28)
[2018-07-09] MEDS: INSULIN ASPART [NOVOLOG] 3 ML PEN SC SCH ×7 (08:29→20:51)
[2018-07-09 15:08] VITALS: BP 92/55; PULSE 75; RESP 18
--- NOTE | 2018-07-09 16:30 | PN ---
Date/Time of Note Date/Time of Note DATE: 07/09/18 TIME: 16:24 Assessment/Plan VTE Prophylaxis Risk score (from Ns)>0 risk: 7 SCD applied (from Ns): Yes Pharmacological prophylaxis: LMWH Lines/Catheters IV [facility]ter Type (from [facility]): Peripheral IV Urinary Cath still in place: No Assessment/Plan Hospital Course Remains hemodynamically stable, afebrile. Please obtain PT reevaluation. Patient's condition plan of care discussed with RN. Assessment/Plan -Status post syncope, 2D echo with preserved ejection fraction, brain CT is negative for acute stroke, carotid Doppler is negative for thrombosis. -Diabetes mellitus with hemoglobin A1c of 8.0. Continue Lantus and NovoLog. -Debility, continue PT -Homelessness Further recommendations based on clinical course. Plan of care discussed with Dr. Lerma. Result Diagram: 07/08/18 0429 07/08/18 0429 Results 24hrs Laboratory Tests Test 07/08/18 17:43 07/08/18 20:10 07/08/18 23:09 07/09/18 02:13 Bedside Glucose 196 310 H 324 H 259 H Test 07/09/18 08:10 07/09/18 12:51 Bedside Glucose 212 245 H Exam/Review of Systems Vital Signs Vitals Vital Signs Date Temp Pulse Resp B/P (MAP) Pulse Ox O2 O2 Flow FiO2 Time Delivery Rate 07/09/18 98.6 75 18 92/55 (67) 98 Room Air 15:08 Intake and Output 07/08/18 07/08/18 07/09/18 1515:00 23:00 07:00 IntakeIntake Total 160 ml 500 ml OutputOutput Total 300 ml BalanceBalance 160 ml 500 ml -300 ml Exam Constitutional: alert, oriented Neck: supple Respiratory: clear to auscultation Cardiovascular: nl pulses Gastrointestinal: soft, non-tender Musculoskeletal: nl extremities to inspection Extremities: normal pulses Medications Medications Current Medications IV Flush (NS 3 ml) 3 ml PER PROTOCOL IV ; Start 06/28/18 at 20:00 Ondansetron HCl (Zofran Inj) 4 mg Q6H PRN IV NAUSEA AND/OR VOMITING; Start 06/28/18 at 20:00 Enoxaparin Sodium (Lovenox) 30 mg DAILY SC Last administered on 07/09/18at 08:28; Admin Dose 30 MG; Start 06/29/18 at 09:00 Lorazepam (Ativan) 1 mg Q6H PRN PO ANXIETY Last administered on 07/09/18 15:12; Admin Dose 1 MG; Start 06/28/18 at 22:00 Miscellaneous Information 1 ea NOTE XX ; Start 06/29/18 at 16:30 Glucose (Glutose) 15 gm Q15M PRN PO DECREASED GLUCOSE; Start 06/29/18 at 16:30 Glucose (Glutose) 22.5 gm Q15M PRN PO DECREASED GLUCOSE; Start 06/29/18 at 16:30 Dextrose (D50w Syringe) 25 ml Q15M PRN IV DECREASED GLUCOSE; Start 06/29/18 at 16:30 Dextrose (D50w Syringe) 50 ml Q15M PRN IV DECREASED GLUCOSE; Start 06/29/18 at 16:30 Glucagon (Glucagen) 1 mg Q15M PRN IM DECREASED GLUCOSE; Start 06/29/18 at 16:30 Glucose (Glutose) 15 gm Q15M PRN BUCCAL DECREASED GLUCOSE Last administered on 07/02/18at 08:04; Admin Dose 15 GM; Start 06/29/18 at 16:30 Famotidine (Pepcid) 20 mg Q12 PO Last administered on 07/09/18 08:26; Admin Dose 20 MG; Start 06/29/18 at 21:00 Morphine Sulfate (morphine) 6 mg Q4H PRN PO SEVERE PAIN LEVEL 7-10 Last administered on 07/09/18 15:12; Admin Dose 6 MG; Start 06/29/18 at 22:30 Diphenhydramine HCl (Benadryl) 25 mg Q6H PRN IV ITCHING Last administered on 07/09/18 06:32; Admin Dose 25 MG; Start 07/01/18 at 19:30 Diagnostic Test (Pha) (Accu-Chek) 1 ea 02 XX Last administered on 07/09/18 02:13; Admin Dose 1 EA; Start 07/05/18 at 02:00 Insulin Aspart (Novolog Insulin Pen) NOVOLOG *MILD* ALGORITHM WITH MEALS B EDTIME SC Last administered on 07/09/18 12:55; Admin Dose 3 UNIT; Start 07/04/18 at 21:00 Insulin Glargine (Lantus) 15 units DAILY@2000 SC Last administered on 07/08/18at 20:17; Admin Dose 15 UNITS; Start 07/06/18 at 20:00 Cromolyn Sodium (Nasalcrom) 1 spray TID NASAL Last administered on 07/09/18at 08 :26; Admin Dose 1 SPRAY; Start 07/06/18 at 21:00 Insulin Aspart (Novolog Insulin Pen) 7 unit WITH BREAKFAST LUNCH SC Last administered on 07/09/18at 12:55; Admin Dose 7 UNIT; Start 07/09/18 at 07:50 Insulin Aspart (Novolog Insulin Pen) 10 unit WITH DINNER SC ; Start 07/09/18 at 17:55 SUJATA COLVIN Jul 09, 2018 16:30
[2018-07-09] MEDS: metFORMIN 500 MG TAB PO SCH (17:53)
[2018-07-09 19:37] VITALS: BP 91/52; PULSE 68; RESP 16
[2018-07-09] MEDS: INSULIN GLARGINE [LANTus] (100 UNITS/ML) SYG SC SCH (20:54)
[2018-07-10 01:07] VITALS: BP 105/61; PULSE 71; RESP 16
[2018-07-10 07:24] VITALS: BP 88/54; PULSE 67; RESP 18
[2018-07-10] MEDS: CROMOLYN 4% 26ML NAS INH NASAL SCH ×2 (08:53→13:00)
[2018-07-10] MEDS: metFORMIN 500 MG TAB PO SCH ×2 (08:53→17:48)
[2018-07-10] MEDS: FAMOTIDINE 20 MG TAB PO SCH ×2 (08:53→20:21)
[2018-07-10] MEDS: INSULIN ASPART [NOVOLOG] 3 ML PEN SC SCH ×7 (08:55→20:24)
[2018-07-10] MEDS: ENOXAPARIN 30 MG/0.3 ML SYG SC SCH (08:57)
[2018-07-10] MEDS: LORAZEPAM 1 MG TAB PO PRN (11:50)
[2018-07-10] MEDS: morphine LIQ (10 MG/5 ML) CUP PO PRN (11:54)
[2018-07-10 14:45] VITALS: BP 85/53; PULSE 67; RESP 18
--- NOTE | 2018-07-10 16:14 | PN ---
Date/Time of Note Date/Time of Note DATE: 07/10/18 TIME: 16:09 Assessment/Plan VTE Prophylaxis Risk score (from Nsg)>0 risk: 7 SCD applied (from Nsg): Yes Pharmacological prophylaxis: LMWH Lines/Catheters IV Catheter Type (from Nrsg): Peripheral IV Urinary Cath still in place: No Assessment/Plan Hospital Course Adequate blood sugar control, patient is lethargic, borderline blood pressure, DC Ativan and morphine, start [place] as needed for pain, no fever, stable heart rate. DC planning Assessment/Plan -Status post syncope, 2D echo with preserved ejection fraction, brain CT is negative for acute stroke, carotid Doppler is negative for thrombosis. -Diabetes mellitus with hemoglobin A1c of 8.0. Continue Lantus and NovoLog. -Debility, PT with recommendation for alf facility placement to improve strength. -Homelessness Further recommendations based on clinical course. Plan of care discussed with Dr. Lerma. Result Diagram: 07/08/18 0429 07/08/189 Results 24hrs Laboratory Tests Test 07/09/18 17:51 07/09/18 20:46 07/10/18 08:51 07/10/18 13:04 Bedside Glucose 140 102 143 108 Exam/Review of Systems Vital Signs Vitals Vital Signs Date Temp Pulse Resp B/P (MAP) Pulse Ox O2 O2 Flow FiO2 Time Delivery Rate 07/10/18 98.0 67 18 85/53 (64) 96 Room Air 14:45 Intake and Output 07/09/18 07/09/18 07/10/18 1515:00 23:00 07:00 IntakeIntake Total 540 ml OutputOutput Total 300 ml BalanceBalance 240 ml Exam Constitutional: alert, oriented Neck: supple Respiratory: clear to auscultation Cardiovascular: nl pulses Gastrointestinal: soft, non-tender Musculoskeletal: nl extremities to inspection Extremities: normal pulses Medications Medications Current Medications IV Flush (NS 3 ml) 3 ml PER PROTOCOL IV ; Start 06/28/18 at 20:00 Ondansetron HCl (Zofran Inj) 4 mg Q6H PRN IV NAUSEA AND/OR VOMITING; Start 06/28/18 at 20:00 Enoxaparin Sodium (Lovenox) 30 mg DAILY SC Last administered on 07/10/18at 08:57; Admin Dose 30 MG; Start 06/29/18 at 09:00 Lorazepam (Ativan) 1 mg Q6H PRN PO ANXIETY Last administered on 07/10/18 11:50; Admin Dose 1 MG; Start 06/28/18 at 22:00 Miscellaneous Information 1 ea NOTE XX ; Start 06/29/18 at 16:30 Glucose (Glutose) 15 gm Q15M PRN PO DECREASED GLUCOSE; Start 06/29/18 at 16:30 Glucose (Glutose) 22.5 gm Q15M PRN PO DECREASED GLUCOSE; Start 06/29/18 at 16:30 Dextrose (D50w Syringe) 25 ml Q15M PRN IV DECREASED GLUCOSE; Start 06/29/18 at 16:30 Dextrose (D50w Syringe) 50 ml Q15M PRN IV DECREASED GLUCOSE; Start 06/29/18 at 16:30 Glucagon (Glucagen) 1 mg Q15M PRN IM DECREASED GLUCOSE; Start 06/29/18 at 16:30 Glucose (Glutose) 15 gm Q15M PRN BUCCAL DECREASED GLUCOSE Last administered on 07/02/18at 08:04; Admin Dose 15 GM; Start 06/29/18 at 16:30 Famotidine (Pepcid) 20 mg Q12 PO Last administered on 07/10/18 08:53; Admin Dose 20 MG; Start 06/29/18 at 21:00 Morphine Sulfate (morphine) 6 mg Q4H PRN PO SEVERE PAIN LEVEL 7-10 Last administered on 07/10/18 11:54; Admin Dose 6 MG; Start 06/29/18 at 22:30 Diphenhydramine HCl (Benadryl) 25 mg Q6H PRN IV ITCHING Last administered on 07/09/18 21:58; Admin Dose 25 MG; Start 07/01/18 at 19:30 Diagnostic Test (Pha) (Accu-Chek) 1 ea 02 XX Last administered on 07/09/18 02:13; Admin Dose 1 EA; Start 07/05/18 at 02:00 Insulin Aspart (Novolog Insulin Pen) NOVOLOG *MILD* ALGORITHM WITH MEALS BEDTIME SC Last administered on 07/10/18 08:55; Admin Dose 1 UNIT; Start 07/04/18 at 21:00 Cromolyn Sodium (Nasalcrom) 1 spray TID NASAL Last administered on 1/8/19at 08: 53; Admin Dose 1 SPRAY; Start 07/06/18 at 21:00 Insulin Aspart (Novolog Insulin Pen) 7 unit WITH BREAKFAST LUNCH SC Last administered on 07/10/18at 13:08; Admin Dose 7 UNIT; Start 07/09/18 at 07:50 Insulin Aspart (Novolog Insulin Pen) 10 unit WITH DINNER SC Last administered on 07/09/18at 17:55; Admin Dose 10 UNIT; Start 07/09/18 at 17:55 Insulin Glargine (Lantus) 20 units DAILY@2000 SC Last administered on 07/09/18at 20:54; Admin Dose 20 UNITS; Start 07/09/18 at 20:00 Metformin HCl (Glucophage) 500 mg WITH BREAKFAST PO Last administered on 07/10/18at 08:53; Admin Dose 500 MG; Start 07/10/18 at 07:50 Metformin HCl (Glucophage) 500 mg WITH DINNER PO Last administered on 07/09/18at 17:53; Admin Dose 500 MG; Start 07/09/18 at 17:55 SUJATA COLVIN Jul 10, 2018 16:14
[2018-07-10] MEDS: HYDROCODONE/APAP (5/325) TAB PO PRN ×2 (18:05→22:43)
[2018-07-10 18:30] VITALS: BP 113/68; PULSE 72; RESP 18
[2018-07-10] MEDS: DIPHENHYDRAMINE 25 MG CAP PO PRN (20:21)
[2018-07-10] MEDS: INSULIN GLARGINE [LANTus] (100 UNITS/ML) SYG SC SCH (20:26)
[2018-07-10 21:00] VITALS: BP 111/66; PULSE 72; RESP 18
[2018-07-10] MEDS: LORAZEPAM 0.5 MG TAB PO PRN (21:25)
[2018-07-11] MEDS: ACCU-CHEK XX SCH (01:53)
[2018-07-11 02:38] VITALS: BP 111/60; PULSE 69; RESP 18
[2018-07-11] MEDS: LORAZEPAM 0.5 MG TAB PO PRN ×2 (03:22→23:12)
[2018-07-11 07:35] VITALS: BP 124/60; PULSE 71; RESP 18
[2018-07-11] MEDS: HYDROCODONE/APAP (5/325) TAB PO PRN ×3 (07:47→20:58)
[2018-07-11] MEDS: INSULIN ASPART [NOVOLOG] 3 ML PEN SC SCH ×7 (07:50→20:34)
[2018-07-11] MEDS: FAMOTIDINE 20 MG TAB PO SCH ×2 (08:42→20:36)
[2018-07-11] MEDS: metFORMIN 500 MG TAB PO SCH ×2 (08:43→17:53)
[2018-07-11] MEDS: ENOXAPARIN 30 MG/0.3 ML SYG SC SCH (08:44)
--- NOTE | 2018-07-11 14:59 | PN ---
Date/Time of Note Date/Time of Note DATE: 07/11/18 TIME: 14:56 Assessment/Plan VTE Prophylaxis Risk score (from Ns)>0 risk: 2 SCD applied (from Ns): Yes Pharmacological prophylaxis: LMWH Lines/Catheters IV Catheter Type (from Nrs): [place] Urinary Cath still in place: No Assessment/Plan Hospital Course Patient remains hemodynamically stable, afebrile. Pending group home fa cility placement. Assessment/Plan -Status post syncope, 2D echo with preserved ejection fraction, brain CT is negative for acute stroke, carotid Doppler is negative for thrombosis. -Diabetes mellitus with hemoglobin A1c of 8.0. Continue Lantus and NovoLog. -Debility, PT with recommendation for group home facility placement to improve strength. -Homelessness Further recommendations based on clinical course. Plan of care discussed with Dr. Lerma. Result Diagram: 07/08/189 07/08/18428 Results 24hrs Laboratory Tests Test 07/10/18 17:44 07/10/18 20:20 07/11/18 01:42 07/11/18 08:42 Bedside Glucose 174 192 159 140 Test 07/11/18 13:15 Bedside Glucose 118 Exam/Review of Systems Vital Signs Vitals Vital Signs Date Temp Pulse Resp B/P (MAP) Pulse Ox O2 O2 Flow FiO2 Time Delivery Rate 07/11/18 98.1 71 18 124/60 97 Room Air 07:35 (81) Intake and Output 07/10/18 07/10/18 07/11/18 1515:00 23:00 07:00 IntakeIntake Total 600 ml 200 ml 350 ml OutputOutput Total 200 ml BalanceBalance 400 ml 200 ml 350 ml Exam Constitutional: alert, oriented Neck: supple Respiratory: clear to auscultation Cardiovascular: nl pulses Gastrointestinal: soft, non-tender Musculoskeletal: nl extremities to inspection Extremities: normal pulses Medications Medications Current Medications IV Flush (NS 3 ml) 3 ml PER PROTOCOL IV ; Start 06/28/18 at 20:00 Ondansetron HCl (Zofran Inj) 4 mg Q6H PRN IV NAUSEA AND/OR VOMITING; Start 06/28/18 at 20:00 Enoxaparin Sodium (Lovenox) 30 mg DAILY SC Last administered on 07/11/18at 08:44; Admin Dose 30 MG; Start 06/29/18 at 09:00 Miscellaneous Information 1 ea NOTE XX ; Start 06/29/18 at 16:30 Glucose (Glutose) 15 gm Q15M PRN PO DECREASED GLUCOSE; Start 06/29/18 at 16:30 Glucose (Glutose) 22.5 gm Q15M PRN PO DECREASED GLUCOSE; Start 06/29/18 at 16:30 Dextrose (D50w Syringe) 25 ml Q15M PRN IV DECREASED GLUCOSE; Start 06/29/18 at 16:30 Dextrose (D50w Syringe) 50 ml Q15M PRN IV DECREASED GLUCOSE; Start 06/29/18 at 16:30 Glucagon (Glucagen) 1 mg Q15M PRN IM DECREASED GLUCOSE; Start 06/29/18 at 16:30 Glucose (Glutose) 15 gm Q15M PRN BUCCAL DECREASED GLUCOSE Last administered on 07/02/18at 08:04; Admin Dose 15 GM; Start 06/29/18 at 16:30 Famotidine (Pepcid) 20 mg Q12 PO Last administered on 07/11/18 08:42; Admin Dose 20 MG; Start 06/29/18 at 21:00 Diagnostic Test (Pha) (Accu-Chek) 1 ea 02 XX Last administered on 07/11/18 01:53; Admin Dose 1 EA; Start 07/05/18 at 02:00 Insulin Aspart (Novolog Insulin Pen) NOVOLOG *MILD* ALGORITHM WITH MEALS BEDTIME SC Last administered on 07/10/18 20:24; Admin Dose 1 UNIT; Start 07/04/18 at 21:00 Insulin Aspart (Novolog Insulin Pen) 7 unit WITH BREAKFAST LUNCH SC Last administered on 07/11/18 13:18; Admin Dose 7 UNIT; Start 07/09/18 at 07:50 Insulin Aspart (Novolog Insulin Pen) 10 unit WITH DINNER SC Last administered on 07/10/18 17:48; Admin Dose 10 UNIT; Start 07/09/18 at 17:55 Insulin Glargine (Lantus) 20 units DAILY@2000 SC Last administered on 07/10/18 20:26; Admin Dose 20 UNITS; Start 07/09/18 at 20:00 Metformin HCl (Glucophage) 500 mg WITH BREAKFAST PO Last administered on 07/11/18 08:43; Admin Dose 500 MG; Start 07/10/18 at 07:50 Metformin HCl (Glucophage) 500 mg WITH DINNER PO Last administered on 07/10/18 17:48; Admin Dose 500 MG; Start 07/09/18 at 17:55 Acetaminophen/ Hydrocodone Bitart ([place] (5/325)) 1 tab Q4H PRN PO MODERATE PAIN LEVEL 4-6 Last administered on 07/11/18 12:10; Admin Dose 1 TAB; Start 07/10/18 at 16:30 Diphenhydramine HCl (Benadryl) 25 mg Q6H PRN PO ITCHING Last administered on 07/10/18 20:21; Admin Dose 25 MG; Start 07/10/18 at 20:30 Lorazepam (Ativan) 0.5 mg Q6H PRN PO ANXIETY Last administered on 07/11/18 03:22; Admin Dose 0.5 MG; Start 07/10/18 at 21:30 SUJATA COLVIN Jul 11, 2018 14:59
[2018-07-11 15:27] VITALS: BP 125/63; PULSE 70; RESP 18
[2018-07-11 19:15] VITALS: BP 99/62; PULSE 71; RESP 20
[2018-07-11] MEDS: INSULIN GLARGINE [LANTus] (100 UNITS/ML) SYG SC SCH (20:38)
[2018-07-11] MEDS ORDERED: CROMOLYN 4% 26ML NAS INH NASAL PRN (21:30)
[2018-07-12] MEDS: DIPHENHYDRAMINE 25 MG CAP PO PRN ×3 (00:05→22:43)
[2018-07-12] MEDS: ACCU-CHEK XX SCH (01:58)
[2018-07-12 02:21] VITALS: BP 102/63; PULSE 77; RESP 20
[2018-07-12] MEDS: HYDROCODONE/APAP (5/325) TAB PO PRN ×3 (03:23→21:55)
[2018-07-12 07:41] VITALS: BP 105/59; PULSE 71; RESP 18
[2018-07-12] MEDS: INSULIN ASPART [NOVOLOG] 3 ML PEN SC SCH ×7 (08:49→20:28)
[2018-07-12] MEDS: ENOXAPARIN 30 MG/0.3 ML SYG SC SCH (08:50)
[2018-07-12] MEDS: metFORMIN 500 MG TAB PO SCH ×2 (08:51→17:57)
[2018-07-12] MEDS: FAMOTIDINE 20 MG TAB PO SCH ×2 (08:51→20:22)
[2018-07-12] MEDS: LORAZEPAM 0.5 MG TAB PO PRN ×2 (13:36→23:05)
[2018-07-12 15:01] VITALS: BP 98/58; PULSE 75
--- NOTE | 2018-07-12 17:12 | PN ---
Date/Time of Note Date/Time of Note DATE: 07/12/18 TIME: 17:12 Assessment/Plan VTE Prophylaxis Risk score (from Ns)>0 risk: 2 SCD applied (from Ns): Yes Pharmacological prophylaxis: LMWH Lines/Catheters IV Catheter Type (from Nrsg): Saline Lock Urinary Cath still in place: No Assessment/Plan Hospital Course No acute events overnight, patient is able to ambulate, Limited gait due to weakness, fatigue, and feeling dizzy/lightheaded, remains hemodynamically stable, afebrile. Pending alf facility placement. Assessment/Plan -Status post syncope, 2D echo with preserved ejection fraction, brain CT is negative for acute stroke, carotid Doppler is negative for thrombosis. -Diabetes mellitus with hemoglobin A1c of 8.0. Continue Lantus and NovoLog. -Debility, PT with recommendation for alf facility placement to improve strength. -Homelessness Further recommendations based on clinical course. Plan of care discussed with Dr. Lerma. Result Diagram: 07/08/189 07/08/18428 Results 24hrs Laboratory Tests Test 07/11/18 17:53 07/11/18 20:33 07/12/18 08:48 07/12/18 13:34 Bedside Glucose 86 145 103 136 Exam/Review of Systems Vital Signs Vitals Vital Signs Date Temp Pulse Resp B/P (MAP) Pulse Ox O2 O2 Flow FiO2 Time Delivery Rate 07/12/18 98.0 75 98/58 (71) Room Air 15:01 07/12/18 18 97 07:41 Intake and Output 07/11/18 07/11/18 07/12/18 1414:59 22:59 06:59 IntakeIntake Total 600 ml 250 ml 500 ml OutputOutput Total 301 ml BalanceBalance 299 ml 250 ml 500 ml Exam Constitutional: alert, oriented Neck: supple Respiratory: clear to auscultation Cardiovascular: nl pulses Gastrointestinal: soft, non-tender Musculoskeletal: nl extremities to inspection Extremities: normal pulses Medications Medications Current Medications IV Flush (NS 3 ml) 3 ml PER PROTOCOL IV ; Start 06/28/18 at 20:00 Ondansetron HCl (Zofran Inj) 4 mg Q6H PRN IV NAUSEA AND/OR VOMITING; Start 06/28/18 at 20:00 Enoxaparin Sodium (Lovenox) 30 mg DAILY SC Last administered on 07/12/18 08:50; Admin Dose 30 MG; Start 06/29/18 at 09:00 Miscellaneous Information 1 ea NOTE XX ; Start 06/29/18 at 16:30 Glucose (Glutose) 15 gm Q15M PRN PO DECREASED GLUCOSE; Start 06/29/18 at 16:30 Glucose (Glutose) 22.5 gm Q15M PRN PO DECREASED GLUCOSE; Start 06/29/18 at 16:30 Dextrose (D50w Syringe) 25 ml Q15M PRN IV DECREASED GLUCOSE; Start 06/29/18 at 16:30 Dextrose (D50w Syringe) 50 ml Q15M PRN IV DECREASED GLUCOSE; Start 06/29/18 at 16:30 Glucagon (Glucagen) 1 mg Q15M PRN IM DECREASED GLUCOSE; Start 06/29/18 at 16:30 Glucose (Glutose) 15 gm Q15M PRN BUCCAL DECREASED GLUCOSE Last administered on 07/02/18at 08:04; Admin Dose 15 GM; Start 06/29/18 at 16:30 Famotidine (Pepcid) 20 mg Q12 PO Last administered on 07/12/18 08:51; Admin Dose 20 MG; Start 06/29/18 at 21:00 Diagnostic Test (Pha) (Accu-Chek) 1 ea 02 XX Last administered on 07/11/18 01:53; Admin Dose 1 EA; Start 07/05/18 at 02:00 Insulin Aspart (Novolog Insulin Pen) NOVOLOG *MILD* ALGORITHM WITH MEALS BEDTIME SC Last administered on 07/10/18 20:24; Admin Dose 1 UNIT; Start 07/04/18 at 21:00 Insulin Aspart (Novolog Insulin Pen) 7 unit WITH BREAKFAST LUNCH SC Last administered on 07/12/18 13:35; Admin Dose 7 UNIT; Start 07/09/18 at 07:50 Insulin Aspart (Novolog Insulin Pen) 10 unit WITH DINNER SC Last administered on 07/11/18 17:56; Admin Dose 10 UNIT; Start 07/09/18 at 17:55 Insulin Glargine (Lantus) 20 units DAILY@2000 SC Last administered on 07/11/18 20:38; Admin Dose 20 UNITS; Start 07/09/18 at 20:00 Metformin HCl (Glucophage) 500 mg WITH BREAKFAST PO Last administered on 07/12/18 08:51; Admin Dose 500 MG; Start 07/10/18 at 07:50 Metformin HCl (Glucophage) 500 mg WITH DINNER PO Last administered on 07/11/18 17:53; Admin Dose 500 MG; Start 07/09/18 at 17:55 Acetaminophen/ Hydrocodone Bitart ([place] (5/325)) 1 tab Q4H PRN PO MODERATE PAIN LEVEL 4-6 Last administered on 07/12/18 13:37; Admin Dose 1 TAB; Start 07/10/18 at 16:30 Diphenhydramine HCl (Benadryl) 25 mg Q6H PRN PO ITCHING Last administered on 07/12/18 06:51; Admin Dose 25 MG; Start 07/10/18 at 20:30 Lorazepam (Ativan) 0.5 mg Q6H PRN PO ANXIETY Last administered on 07/12/18 13:36; Admin Dose 0.5 MG; Start 07/10/18 at 21:30 Zolpidem Tartrate (Ambien) 5 mg HS PRN PO INSOMNIA; Start 07/11/18 at 21:30 Cromolyn Sodium (Nasalcrom) 1 spray TID PRN NASAL NASAL CONGESTION; Start 07/03 at 05:04 USJATA COLVIN Jul 12, 2018 17:12
[2018-07-12 20:04] VITALS: BP 109/67; PULSE 71; RESP 20
[2018-07-12] MEDS: INSULIN GLARGINE [LANTus] (100 UNITS/ML) SYG SC SCH (20:29)
[2018-07-13 01:55] VITALS: BP 100/58; PULSE 78; RESP 18
[2018-07-13] MEDS: ACCU-CHEK XX SCH (02:00)
[2018-07-13 04:17] VITALS: BP 101/50; PULSE 75; RESP 18
[2018-07-13 08:10] VITALS: BP 113/61; PULSE 74; RESP 18
[2018-07-13] MEDS: FAMOTIDINE 20 MG TAB PO SCH ×2 (09:05→20:38)
[2018-07-13] MEDS: metFORMIN 500 MG TAB PO SCH ×2 (09:05→17:58)
[2018-07-13] MEDS: INSULIN ASPART [NOVOLOG] 3 ML PEN SC SCH ×7 (09:07→20:48)
[2018-07-13] MEDS: ENOXAPARIN 30 MG/0.3 ML SYG SC SCH (09:08)
[2018-07-13] MEDS: HYDROCODONE/APAP (5/325) TAB PO PRN ×2 (09:34→19:04)
--- NOTE | 2018-07-13 14:36 | PN ---
Date/Time of Note Date/Time of Note DATE: 07/13/18 TIME: 14:36 Assessment/Plan VTE [place] [facility] [place]: 2 [place] [facility] [place] Yes Pharmacological prophylaxis: other Pharm contraindication: other Lines/Catheters IV Catheter Type (from [facility]): Saline Lock Urinary Cath still in place: No Assessment/Plan Results 24hrs Laboratory Tests Test 07/12/18 17:56 07/12/18 20:24 07/12/18 23:00 07/13/18 01:50 Bedside Glucose 181 293 H 190 163 Test 07/13/18 08:24 07/13/18 12:43 Bedside Glucose 151 100 Exam/Review of Systems Vital Signs Vitals Vital Signs Date Temp Pulse Resp B/P (MAP) Pulse Ox O2 O2 Flow FiO2 Time Delivery Rate 07/13/18 97.9 74 18 113/61 96 Room Air 08:10 (78) Intake and Output 07/12/18 07/12/18 07/13/18 1515:00 23:00 07:00 IntakeIntake Total 240 ml OutputOutput Total 300 ml BalanceBalance 240 ml -300 ml Medications Medications Current Medications IV Flush (NS 3 ml) 3 ml PER PROTOCOL IV ; Start 06/28/18 at 20:00 Ondansetron HCl (Zofran Inj) 4 mg Q6H PRN IV NAUSEA AND/OR VOMITING; Start 06/28/18 at 20:00 Enoxaparin Sodium (Lovenox) 30 mg DAILY SC Last administered on 07/13/18at 09:08; Admin Dose 30 MG; Start 06/29/18 at 09:00 Miscellaneous Information 1 ea NOTE XX ; Start 06/29/18 at 16:30 Glucose (Glutose) 15 gm Q15M PRN PO DECREASED GLUCOSE; Start 06/29/18 at 16:30 Glucose (Glutose) 22.5 gm Q15M PRN PO DECREASED GLUCOSE; Start 06/29/18 at 16:30 Dextrose (D50w Syringe) 25 ml Q15M PRN IV DECREASED GLUCOSE; Start 06/29/18 at 16:30 Dextrose (D50w Syringe) 50 ml Q15M PRN IV DECREASED GLUCOSE; Start 06/29/18 at 16:30 Glucagon (Glucagen) 1 mg Q15M PRN IM DECREASED GLUCOSE; Start 06/29/18 at 16:30 Glucose (Glutose) 15 gm Q15M PRN BUCCAL DECREASED GLUCOSE Last administered on 07/02/18 08:04; Admin Dose 15 GM; Start 06/29/18 at 16:30 Famotidine (Pepcid) 20 mg Q12 PO Last administered on 07/13/18 09:05; Admin Dose 20 MG; Start 06/29/18 at 21:00 Diagnostic Test (Pha) (Accu-Chek) 1 ea 02 XX Last administered on 07/11/18 0 1:53; Admin Dose 1 EA; Start 07/05/18 at 02:00 Insulin Aspart (Novolog Insulin Pen) NOVOLOG *MILD* ALGORITHM WITH MEALS BEDTIME SC Last administered on 07/13/18 09:07; Admin Dose 1 UNIT; Start 07/04/18 at 21:00 Insulin Aspart (Novolog Insulin Pen) 7 unit WITH BREAKFAST LUNCH SC Last administered on 07/13/18 12:58; Admin Dose 7 UNIT; Start 07/09/18 at 07:50 Insulin Aspart (Novolog Insulin Pen) 10 unit WITH DINNER SC Last administered on 07/12/18 18:00; Admin Dose 10 UNIT; Start 07/09/18 at 17:55 Insulin Glargine (Lantus) 20 units DAILY@2000 SC Last administered on 07/12/18 20:29; Admin Dose 20 UNITS; Start 07/09/18 at 20:00 Metformin HCl (Glucophage) 500 mg WITH BREAKFAST PO Last administered on 07/13/18 09:05; Admin Dose 500 MG; Start 07/10/18 at 07:50 Metformin HCl (Glucophage) 500 mg WITH DINNER PO Last administered on 07/12/18 17:57; Admin Dose 500 MG; Start 07/09/18 at 17:55 Acetaminophen/ Hydrocodone Bitart ([place] (5/325)) 1 tab Q4H PRN PO MODERATE PAIN LEVEL 4-6 Last administered on 07/13/18 09:34; Admin Dose 1 TAB; Start 07/10/18 at 16:30 Diphenhydramine HCl (Benadryl) 25 mg Q6H PRN PO ITCHING Last administered on 22:43; Admin Dose 25 MG; Start 07/10/18 at 20:30 Lorazepam (Ativan) 0.5 mg Q6H PRN PO ANXIETY Last administered on 07/12/18at 23:05; Admin Dose 0.5 MG; Start 07/10/18 at 21:30 Zolpidem Tartrate (Ambien) 5 mg HS PRN PO INSOMNIA; Start 07/11/18 at 21:30 Cromolyn Sodium (Nasalcrom) 1 spray TID PRN NASAL NASAL CONGESTION; Start 07/12/18 at 05:04 CHRIS DEL REAL Jul 13, 2018 14:36
[2018-07-13 14:51] VITALS: BP 110/60; PULSE 76; RESP 18
[2018-07-13 19:40] VITALS: BP 128/79; PULSE 74; RESP 20
[2018-07-13] MEDS: DIPHENHYDRAMINE 25 MG CAP PO PRN (19:49)
[2018-07-13] MEDS: INSULIN GLARGINE [LANTus] (100 UNITS/ML) SYG SC SCH (20:48)
[2018-07-13] MEDS: LORAZEPAM 0.5 MG TAB PO PRN (21:10)
[2018-07-14] MEDS: ACCU-CHEK XX SCH (02:00)
[2018-07-14 02:40] VITALS: BP 118/61; PULSE 73; RESP 20
[2018-07-14] MEDS: LORAZEPAM 0.5 MG TAB PO PRN (03:38)
[2018-07-14 07:51] VITALS: BP 100/60; PULSE 74; RESP 18
[2018-07-14] MEDS: ENOXAPARIN 30 MG/0.3 ML SYG SC SCH (08:57)
[2018-07-14] MEDS: INSULIN ASPART [NOVOLOG] 3 ML PEN SC SCH ×7 (08:58→21:42)
[2018-07-14] MEDS: metFORMIN 500 MG TAB PO SCH ×2 (08:59→21:40)
[2018-07-14] MEDS: FAMOTIDINE 20 MG TAB PO SCH ×2 (08:59→21:43)
--- NOTE | 2018-07-14 11:52 | PN ---
Date/Time of Note Date/Time of Note DATE: 07/14/18 TIME: 11:51 Assessment/Plan VTE Prophylaxis Risk score (from Ns)>0 risk: 2 SCD applied (from Ns): Yes Pharmacological prophylaxis: LMWH Lines/Catheters IV Catheter Type (from Nrsg): Saline Lock Urinary Cath still in place: No Assessment/Plan Hospital Course -Status post syncope, 2D echo with preserved ejection fraction, brain CT is negative for acute stroke, carotid Doppler is negative for thrombosis. -Diabetes mellitus with hemoglobin A1c of 8.0. Continue Lantus and NovoLog. -Debility, PT with recommendation for retirement facility placement to improve strength. -Homelessness Results 24hrs Laboratory Tests Test 07/13/18 12:43 07/13/18 16:30 07/13/18 17:47 07/13/18 20:37 Bedside Glucose 100 88 241 H 246 H Test 07/14/18 02:18 07/14/18 08:50 Bedside Glucose 194 358 H Subjective 24 Hr Interval Summary Free Text/Dictation Patient complain of weakness and pain in bilateral legs Exam/Review of Systems Vital Signs Vitals Vital Signs Date Temp Pulse Resp B/P (MAP) Pulse Ox O2 O2 Flow FiO2 Time Delivery Rate 07/14/18 97.9 74 18 100/60 97 Room Air 07:51 (73) Intake and Output 07/13/18 07/13/18 07/14/18 1515:00 23:00 07:00 IntakeIntake Total 400 ml 420 ml 1400 ml BalanceBalance 400 ml 420 ml 1400 ml Exam Constitutional: well developed Head: normocephalic, atraumatic Neck: supple Respiratory: diminished breath sounds Cardiovascular: regular rate and rhythm Gastrointestinal: soft, non-tender Extremities: normal pulses Medications Medications Current Medications IV Flush (NS 3 ml) 3 ml PER PROTOCOL IV ; Start 06/28/18 at 20:00 Ondansetron HCl (Zofran Inj) 4 mg Q6H PRN IV NAUSEA AND/OR VOMITING; Start 06/28/18 at 20:00 Enoxaparin Sodium (Lovenox) 30 mg DAILY SC Last administered on 07/14/18at 08:57; Admin Dose 30 MG; Start 06/29/18 at 09:00 Miscellaneous Information 1 ea NOTE XX ; Start 06/29/18 at 16:30 Glucose (Glutose) 15 gm Q15M PRN PO DECREASED GLUCOSE; Start 06/29/18 at 16:30 Glucose (Glutose) 22.5 gm Q15M PRN PO DECREASED GLUCOSE; Start 06/29/18 at 16:30 Dextrose (D50w Syringe) 25 ml Q15M PRN IV DECREASED GLUCOSE; Start 06/29/18 at 16:30 Dextrose (D50w Syringe) 50 ml Q15M PRN IV DECREASED GLUCOSE; Start 06/29/18 at 16:30 Glucagon (Glucagen) 1 mg Q15M PRN IM DECREASED GLUCOSE; Start 06/29/18 at 16:30 Glucose (Glutose) 15 gm Q15M PRN BUCCAL DECREASED GLUCOSE Last administered on 07/02/18 08:04; Admin Dose 15 GM; Start 06/29/18 at 16:30 Famotidine (Pepcid) 20 mg Q12 PO Last administered on 07/14/18 08:59; Admin Dose 20 MG; Start 06/29/18 at 21:00 Diagnostic Test (Pha) (Accu-Chek) 1 ea 02 XX Last administered on 07/11/18 01:53; Admin Dose 1 EA; Start 07/05/18 at 02:00 Insulin Aspart (Novolog Insulin Pen) NOVOLOG *MILD* ALGORITHM WITH MEALS BEDTIME SC Last administered on 07/14/18 08:58; Admin Dose 7 UNIT; Start 07/04/18 at 21:00 Insulin Aspart (Novolog Insulin Pen) 7 unit WITH BREAKFAST LUNCH SC Last ad ministered on 07/14/18 08:58; Admin Dose 7 UNIT; Start 07/09/18 at 07:50 Insulin Aspart (Novolog Insulin Pen) 10 unit WITH DINNER SC Last administered on 07/13/18 18:00; Admin Dose 10 UNIT; Start 07/09/18 at 17:55 Insulin Glargine (Lantus) 20 units DAILY@2000 SC Last administered on 07/13/18 20:48; Admin Dose 20 UNITS; Start 07/09/18 at 20:00 Metformin HCl (Glucophage) 500 mg WITH BREAKFAST PO Last administered on 07/14/18 08:59; Admin Dose 500 MG; Start 07/10/18 at 07:50 Metformin HCl (Glucophage) 500 mg WITH DINNER PO Last administered on 07/13/18 17:58; Admin Dose 500 MG; Start 07/09/18 at 17:55 Acetaminophen/ Hydrocodone Bitart ([place] (5/325)) 1 tab Q4H PRN PO MODERATE PAIN LEVEL 4-6 Last administered on 07/13/18at 19:04; Admin Dose 1 TAB; Start 07/10/18 at 16:30 Diphenhydramine HCl (Benadryl) 25 mg Q6H PRN PO ITCHING Last administered on 07/13/18at 19:49; Admin Dose 25 MG; Start 07/10/18 at 20:30 Lorazepam (Ativan) 0.5 mg Q6H PRN PO ANXIETY Last administered on 07/14/18at 03:38; Admin Dose 0.5 MG; Start 07/10/18 at 21:30 Zolpidem Tartrate (Ambien) 5 mg HS PRN PO INSOMNIA; Start 07/11/18 at 21:30 Cromolyn Sodium (Nasalcrom) 1 spray TID PRN NASAL NASAL CONGESTION; Start 07/12/18 at 05:04 LUCIUS KISER Jul 14, 2018 11:52
[2018-07-14 14:00] VITALS: BP 114/64; PULSE 72; RESP 18
[2018-07-14 19:50] VITALS: BP 128/66; PULSE 74; RESP 20
[2018-07-14] MEDS: INSULIN GLARGINE [LANTus] (100 UNITS/ML) SYG SC SCH (21:43)
[2018-07-14] MEDS: ZOLPIDEM 5 MG TAB PO PRN (22:39)
[2018-07-15] MEDS: DIPHENHYDRAMINE 25 MG CAP PO PRN ×2 (00:11→18:30)
[2018-07-15 02:40] VITALS: BP 111/62; PULSE 75; RESP 20
[2018-07-15] MEDS: ACCU-CHEK XX SCH (03:00)
[2018-07-15] MEDS: LORAZEPAM 0.5 MG TAB PO PRN ×3 (03:21→22:04)
[2018-07-15 07:32] VITALS: BP 97/59; PULSE 72; RESP 18
[2018-07-15] MEDS: FAMOTIDINE 20 MG TAB PO SCH ×2 (08:53→21:13)
[2018-07-15] MEDS: metFORMIN 500 MG TAB PO SCH ×2 (08:53→17:39)
[2018-07-15] MEDS: ENOXAPARIN 30 MG/0.3 ML SYG SC SCH (08:53)
[2018-07-15] MEDS: INSULIN ASPART [NOVOLOG] 3 ML PEN SC SCH ×9 (08:55→21:11)
--- NOTE | 2018-07-15 12:24 | PN ---
Date/Time of Note Date/Time of Note DATE: 07/15/18 TIME: 12:23 Assessment/Plan VTE Prophylaxis Risk score (from Ns)>0 risk: 2 SCD applied (from Ns): Yes Pharmacological prophylaxis: LMWH Lines/Catheters IV Catheter Type (from Nrsg): Saline Lock Urinary Cath still in place: No Assessment/Plan Hospital Course -Status post syncope, 2D echo with preserved ejection fraction, brain CT is negative for acute stroke, carotid Doppler is negative for thrombosis. -Diabetes mellitus with hemoglobin A1c of 8.0. Continue Lantus and NovoLog. -Debility, PT with recommendation for senior care facility placement to improve strength. -Homelessness Results 24hrs Laboratory Tests Test 07/14/18 12:45 07/14/18 17:53 07/14/18 21:27 07/15/18 03:01 Bedside Glucose 79 183 184 289 H Test 07/15/18 08:22 Bedside Glucose 182 Subjective 24 Hr Interval Summary Free Text/Dictation Patient continues to feel weak Exam/Review of Systems Vital Signs Vitals Vital Signs Date Temp Pulse Resp B/P (MAP) Pulse Ox O2 O2 Flow FiO2 Time Delivery Rate 07/15/18 98.6 72 18 97/59 (72) 100 07:32 07/15/18 Room Air 02:40 Intake and Output 07/14/18 07/14/18 07/15/18 1515:00 23:00 07:00 IntakeIntake Total 550 ml 300 ml 180 ml BalanceBalance 550 ml 300 ml 180 ml Exam Constitutional: well developed Head: normocephalic, atraumatic Neck: supple Respiratory: diminished breath sounds Cardiovascular: regular rate and rhythm Gastrointestinal: soft, non-tender Extremities: normal pulses Medications Medications Current Medications IV Flush (NS 3 ml) 3 ml PER PROTOCOL IV ; Start 06/28/18 at 20:00 Ondansetron HCl (Zofran Inj) 4 mg Q6H PRN IV NAUSEA AND/OR VOMITING; Start 06/28/18 at 20:00 Enoxaparin Sodium (Lovenox) 30 mg DAILY SC Last administered on 07/15/18at 08:53; Admin Dose 30 MG; Start 06/29/18 at 09:00 Miscellaneous Information 1 ea NOTE XX ; Start 06/29/18 at 16:30 Glucose (Glutose) 15 gm Q15M PRN PO DECREASED GLUCOSE; Start 06/29/18 at 16:30 Glucose (Glutose) 22.5 gm Q15M PRN PO DECREASED GLUCOSE; Start 06/29/18 at 16:30 Dextrose (D50w Syringe) 25 ml Q15M PRN IV DECREASED GLUCOSE; Start 06/29/18 at 16:30 Dextrose (D50w Syringe) 50 ml Q15M PRN IV DECREASED GLUCOSE; Start 06/29/18 at 16:30 Glucagon (Glucagen) 1 mg Q15M PRN IM DECREASED GLUCOSE; Start 06/29/18 at 16:30 Glucose (Glutose) 15 gm Q15M PRN BUCCAL DECREASED GLUCOSE Last administered on 07/02/18 08:04; Admin Dose 15 GM; Start 06/29/18 at 16:30 Famotidine (Pepcid) 20 mg Q12 PO Last administered on 07/15/18 08:53; Admin Dose 20 MG; Start 06/29/18 at 21:00 Diagnostic Test (Pha) (Accu-Chek) 1 ea 02 XX Last administered on 07/15/18 03:00; Admin Dose 1 EA; Start 07/05/18 at 02:00 Insulin Aspart (Novolog Insulin Pen) NOVOLOG *MILD* ALGORITHM WITH MEALS BEDTIME SC Last administered on 07/14/18 21:42; Admin Dose 1 UNIT; Start 07/04/18 at 21:00 Insulin Aspart (Novolog Insulin Pen) 7 unit WITH BREAKFAST LUNCH SC Last administered on 07/14/18 08:58; Admin Dose 7 UNIT; Start 07/09/18 at 07:50 Insulin Aspart (Novolog Insulin Pen) 10 unit WITH DINNER SC Last administered on 07/13/18 18:00; Admin Dose 10 UNIT; Start 07/09/18 at 17:55 Insulin Glargine (Lantus) 20 units DAILY@2000 SC Last administered on 07/14/18 21:43; Admin Dose 20 UNITS; Start 07/09/18 at 20:00 Metformin HCl (Glucophage) 500 mg WITH BREAKFAST PO Last administered on 07/15/18 08:53; Admin Dose 500 MG; Start 07/10/18 at 07:50 Metformin HCl (Glucophage) 500 mg WITH DINNER PO Last administered on 07/14/18 21:40; Admin Dose 500 MG; Start 07/09/18 at 17:55 Acetaminophen/ Hydrocodone Bitart ([place] (5/325)) 1 tab Q4H PRN PO MODERATE PAIN LEVEL 4-6 Last administered on 07/13/18 19:04; Admin Dose 1 TAB; Start 07/10/18 at 16:30 Diphenhydramine HCl (Benadryl) 25 mg Q6H PRN PO ITCHING Last administered on 07/15/18at 00:11; Admin Dose 25 MG; Start 07/10/18 at 20:30 Lorazepam (Ativan) 0.5 mg Q6H PRN PO ANXIETY Last administered on 07/15/18at 03:21; Admin Dose 0.5 MG; Start 07/10/18 at 21:30 Zolpidem Tartrate (Ambien) 5 mg HS PRN PO INSOMNIA Last administered on 07/14/18at 22:39; Admin Dose 5 MG; Start 07/11/18 at 21:30 Cromolyn Sodium (Nasalcrom) 1 spray TID PRN NASAL NASAL CONGESTION; Start 07/12/18 at 05:04 LUCIUS KISER Jul 15, 2018 12:24
[2018-07-15 13:58] VITALS: BP 101/57; PULSE 71; RESP 15
[2018-07-15 20:30] VITALS: BP 141/73; PULSE 73; RESP 18
[2018-07-15] MEDS: INSULIN GLARGINE [LANTus] (100 UNITS/ML) SYG SC SCH (21:12)
[2018-07-15] MEDS: HYDROCODONE/APAP (5/325) TAB PO PRN (21:19)
[2018-07-16] MEDS: ACCU-CHEK XX SCH (02:00)
[2018-07-16] MEDS: ZOLPIDEM 5 MG TAB PO PRN ×2 (02:15→23:15)
[2018-07-16 02:30] VITALS: BP 141/73; PULSE 73; RESP 18
[2018-07-16 08:18] VITALS: BP 103/66; PULSE 73; RESP 18
[2018-07-16] MEDS: metFORMIN 500 MG TAB PO SCH ×2 (08:46→17:51)
[2018-07-16] MEDS: FAMOTIDINE 20 MG TAB PO SCH ×2 (08:46→20:12)
[2018-07-16] MEDS: INSULIN ASPART [NOVOLOG] 3 ML PEN SC SCH ×7 (08:47→20:12)
[2018-07-16] MEDS: ENOXAPARIN 30 MG/0.3 ML SYG SC SCH (08:49)
[2018-07-16 14:03] VITALS: BP 105/66; PULSE 75; RESP 18
--- NOTE | 2018-07-16 16:26 | PN ---
Date/Time of Note Date/Time of Note DATE: 07/16/18 TIME: 16:19 Assessment/Plan VTE Prophylaxis Risk score (from Ns)>0 risk: 2 SCD applied (from Ns): No SCD contraindicated: patient refusal, other Pharmacological prophylaxis: LMWH Lines/Catheters IV Catheter Type (from Nrs): Saline Lock Urinary Cath still in place: No Assessment/Plan Hospital Course Patient remains hemodynamically stable, continue a diabetic diet, patient's blood sugar fluctuation due to poor compliance with meals patient is not eating during the day however asking for food during the night, continue current regimen. Pending custodial facility placement. Assessment/Plan -Status post syncope, 2D echo with preserved ejection fraction, brain CT is negative for acute stroke, carotid Doppler is negative for thrombosis. -Diabetes mellitus with hemoglobin A1c of 8.0. Continue Lantus and NovoLog. -Debility, PT with recommendation for custodial facility placement to improve strength. -Homelessness Further recommendations based on clinical course. Plan of care discussed with Dr. Lerma. Results 24hrs Laboratory Tests Test 07/15/18 17:33 07/15/18 21:07 07/16/18 02:17 07/16/18 08:32 Bedside Glucose 269 H 253 H 235 H 172 Test 07/16/18 12:48 Bedside Glucose 204 Exam/Review of Systems Vital Signs Vitals Vital Signs Date Temp Pulse Resp B/P (MAP) Pulse Ox O2 O2 Flow FiO2 Time Delivery Rate 07/16/18 98.4 75 18 105/66 96 Room Air 14:03 (79) Intake and Output 07/15/18 07/15/18 07/16/18 1515:00 23:00 07:00 IntakeIntake Total 700 ml 740 ml 240 ml BalanceBalance 700 ml 740 ml 240 ml Exam Constitutional: alert, oriented Neck: supple Respiratory: clear to auscultation Cardiovascular: nl pulses Gastrointestinal: soft, non-tender Musculoskeletal: nl extremities to inspection Extremities: normal pulses Medications Medications Current Medications IV Flush (NS 3 ml) 3 ml PER PROTOCOL IV ; Start 06/28/18 at 20:00 Ondansetron HCl (Zofran Inj) 4 mg Q6H PRN IV NAUSEA AND/OR VOMITING; Start 06/28/18 at 20:00 Enoxaparin Sodium (Lovenox) 30 mg DAILY SC Last administered on 07/16/18 08:49; Admin Dose 30 MG; Start 06/29/18 at 09:00 Miscellaneous Information 1 ea NOTE XX ; Start 06/29/18 at 16:30 Glucose (Glutose) 15 gm Q15M PRN PO DECREASED GLUCOSE; Start 06/29/18 at 16:30 Glucose (Glutose) 22.5 gm Q15M PRN PO DECREASED GLUCOSE; Start 06/29/18 at 16:30 Dextrose (D50w Syringe) 25 ml Q15M PRN IV DECREASED GLUCOSE; Start 06/29/18 at 16:30 Dextrose (D50w Syringe) 50 ml Q15M PRN IV DECREASED GLUCOSE; Start 06/29/18 at 16:30 Glucagon (Glucagen) 1 mg Q15M PRN IM DECREASED GLUCOSE; Start 06/29/18 at 16:30 Glucose (Glutose) 15 gm Q15M PRN BUCCAL DECREASED GLUCOSE Last administered on 07/02/18 08:04; Admin Dose 15 GM; Start 06/29/18 at 16:30 Famotidine (Pepcid) 20 mg Q12 PO Last administered on 07/16/18 08:46; Admin Dose 20 MG; Start 06/29/18 at 21:00 Diagnostic Test (Pha) (Accu-Chek) 1 ea 02 XX Last administered on 07/15/18 03:00; Admin Dose 1 EA; Start 07/05/18 at 02:00 Insulin Aspart (Novolog Insulin Pen) NOVOLOG *MILD* ALGORITHM WITH MEALS BEDTIME SC Last administered on 07/16/18 13:20; Admin Dose 2 UNIT; Start 07/04/18 at 21:00 Insulin Aspart (Novolog Insulin Pen) 7 unit WITH BREAKFAST LUNCH SC Last administered on 07/16/18 13:20; Admin Dose 7 UNIT; Start 07/09/18 at 07:50 Insulin Aspart (Novolog Insulin Pen) 10 unit WITH DINNER SC Last administered on 07/15/18 17:41; Admin Dose 10 UNIT; Start 07/09/18 at 17:55 Insulin Glargine (Lantus) 20 units DAILY@2000 SC Last administered on 07/15/18 21:12; Admin Dose 20 UNITS; Start 07/09/18 at 20:00 Metformin HCl (Glucophage) 500 mg WITH BREAKFAST PO Last administered on 07/16/18 08:46; Admin Dose 500 MG; Start 07/10/18 at 07:50 Metformin HCl (Glucophage) 500 mg WITH DINNER PO Last administered on 07/15/18 17:39; Admin Dose 500 MG; Start 07/09/18 at 17:55 Acetaminophen/ Hydrocodone Bitart ([place] (5/325)) 1 tab Q4H PRN PO MODERATE PAIN LEVEL 4-6 Last administered on 07/15/18 21:19; Admin Dose 1 TAB; Start 07/10/18 at 16:30 Diphenhydramine HCl (Benadryl) 25 mg Q6H PRN PO ITCHING Last administered on 07/15/18 18:30; Admin Dose 25 MG; Start 07/10/18 at 20:30 Lorazepam (Ativan) 0.5 mg Q6H PRN PO ANXIETY Last administered on 07/15/18 22:04; Admin Dose 0.5 MG; Start 07/10/18 at 21:30 Zolpidem Tartrate (Ambien) 5 mg HS PRN PO INSOMNIA Last administered on 07/16/18 02:15; Admin Dose 5 MG; Start 07/11/18 at 21:30 Cromolyn Sodium (Nasalcrom) 1 spray TID PRN NASAL NASAL CONGESTION; Start 07/12/18 at 05:04 SUJATA COLVIN Jul 16, 2018 16:26
[2018-07-16] MEDS: CROMOLYN 4% 26ML NAS INH NASAL PRN (17:50)
[2018-07-16] MEDS: LORAZEPAM 0.5 MG TAB PO PRN (18:45)
[2018-07-16 19:37] VITALS: BP 91/58; PULSE 77; RESP 18
[2018-07-16] MEDS: INSULIN GLARGINE [LANTus] (100 UNITS/ML) SYG SC SCH (20:12)
[2018-07-16] MEDS ORDERED: ACETAMINOPHEN 1000MG/100ML IV 100 ML ONE (21:25)
[2018-07-16] MEDS: HYDROCODONE/APAP (5/325) TAB PO PRN (22:23)
[2018-07-17] MEDS: CROMOLYN 4% 26ML NAS INH NASAL PRN (01:28)
[2018-07-17] MEDS: LORAZEPAM 0.5 MG TAB PO PRN ×2 (01:29→20:47)
[2018-07-17] MEDS: ACCU-CHEK XX SCH (02:00)
[2018-07-17 02:07] VITALS: BP 133/74; PULSE 69; RESP 18
[2018-07-17] MEDS: HYDROCODONE/APAP (5/325) TAB PO PRN ×3 (03:00→22:05)
[2018-07-17] MEDS: INSULIN ASPART [NOVOLOG] 3 ML PEN SC SCH ×7 (07:50→20:16)
[2018-07-17 08:03] VITALS: BP 130/78; PULSE 70; RESP 18
[2018-07-17] MEDS: FAMOTIDINE 20 MG TAB PO SCH ×2 (08:48→20:18)
[2018-07-17] MEDS: metFORMIN 500 MG TAB PO SCH ×2 (08:48→17:37)
[2018-07-17] MEDS: ENOXAPARIN 30 MG/0.3 ML SYG SC SCH (08:50)
[2018-07-17 14:38] VITALS: BP 90/52; PULSE 72; RESP 18
--- NOTE | 2018-07-17 16:08 | PN ---
Date/Time of Note Date/Time of Note DATE: 07/17/18 TIME: 16:07 Assessment/Plan VTE Prophylaxis Risk score (from Ns)>0 risk: 2 SCD applied (from [facility] [place] No SCD contraindicated: patient refusal Pharmacological prophylaxis: LMWH Lines/Catheters IV [facility]ter Type (from [facility]): Saline Lock Urinary Cath still in place: No Assessment/Plan Hospital Course Acute events overnight, patient is awake alert, stable vital signs blood sugar is better controlled today continue carb controlled diet, pending penitentiary facility placement. Assessment/Plan -Status post syncope, 2D echo with preserved ejection fraction, brain CT is negative for acute stroke, carotid Doppler is negative for thrombosis. -Diabetes mellitus with hemoglobin A1c of 8.0. Continue Lantus and NovoLog. -Debility, PT with recommendation for penitentiary facility placement to improve strength. -Homelessness Further recommendations based on clinical course. Plan of care discussed with Dr. Lerma. Results 24hrs Laboratory Tests Test 07/16/18 17:49 07/16/18 20:03 07/17/18 08:47 07/17/18 13:17 Bedside Glucose 159 171 70 172 Exam/Review of Systems Vital Signs Vitals Vital Signs Date Temp Pulse Resp B/P (MAP) Pulse Ox O2 O2 Flow FiO2 Time Delivery Rate 07/17/18 98.0 72 18 90/52 (65) 90 Room Air 14:38 Intake and Output 07/16/18 07/16/18 07/17/18 1414:59 22:59 06:59 IntakeIntake Total 800 ml 940 ml BalanceBalance 800 ml 940 ml Exam Constitutional: alert, oriented Neck: supple Respiratory: clear to auscultation Cardiovascular: nl pulses Gastrointestinal: soft, non-tender Musculoskeletal: nl extremities to inspection Extremities: normal pulses Medications Medications Current Medications IV Flush (NS 3 ml) 3 ml PER PROTOCOL IV ; Start 06/28/18 at 20:00 Ondansetron HCl (Zofran Inj) 4 mg Q6H PRN IV NAUSEA AND/OR VOMITING; Start 06/28/18 at 20:00 Enoxaparin Sodium (Lovenox) 30 mg DAILY SC Last administered on 07/17/18at 08:50; Admin Dose 30 MG; Start 06/29/18 at 09:00 Miscellaneous Information 1 ea NOTE XX ; Start 06/29/18 at 16:30 Glucose (Glutose) 15 gm Q15M PRN PO DECREASED GLUCOSE; Start 06/29/18 at 16:30 Glucose (Glutose) 22.5 gm Q15M PRN PO DECREASED GLUCOSE; Start 06/29/18 at 16:30 Dextrose (D50w Syringe) 25 ml Q15M PRN IV DECREASED GLUCOSE; Start 06/29/18 at 16:30 Dextrose (D50w Syringe) 50 ml Q15M PRN IV DECREASED GLUCOSE; Start 06/29/18 at 16:30 Glucagon (Glucagen) 1 mg Q15M PRN IM DECREASED GLUCOSE; Start 06/29/18 at 16:30 Glucose (Glutose) 15 gm Q15M PRN BUCCAL DECREASED GLUCOSE Last administered on 07/02/18at 08:04; Admin Dose 15 GM; Start 06/29/18 at 16:30 Famotidine (Pepcid) 20 mg Q12 PO Last administered on 07/17/18 08:48; Admin Dose 20 MG; Start 06/29/18 at 21:00 Diagnostic Test (Pha) (Accu-Chek) 1 ea 02 XX Last administered on 07/15/18 03:00; Admin Dose 1 EA; Start 07/05/18 at 02:00 Insulin Aspart (Novolog Insulin Pen) NOVOLOG *MILD* ALGORITHM WITH MEALS BEDTIME SC Last administered on 07/17/18 13:21; Admin Dose 1 UNIT; Start 07/04/18 at 21:00 Insulin Aspart (Novolog Insulin Pen) 7 unit WITH BREAKFAST LUNCH SC Last administered on 07/17/18 13:21; Admin Dose 7 UNIT; Start 07/09/18 at 07:50 Insulin Aspart (Novolog Insulin Pen) 10 unit WITH DINNER SC Last administered on 07/16/18 17:53; Admin Dose 10 UNIT; Start 07/09/18 at 17:55 Insulin Glargine (Lantus) 20 units DAILY@2000 SC Last administered on 07/16/18 20:12; Admin Dose 20 UNITS; Start 07/09/18 at 20:00 Metformin HCl (Glucophage) 500 mg WITH BREAKFAST PO Last administered on 07/17/18 08:48; Admin Dose 500 MG; Start 07/10/18 at 07:50 Metformin HCl (Glucophage) 500 mg WITH DINNER PO Last administered on 07/16/18 17:51; Admin Dose 500 MG; Start 07/09/18 at 17:55 Acetaminophen/ Hydrocodone Bitart ([place] (5/325)) 1 tab Q4H PRN PO MODERATE PAIN LEVEL 4-6 Last administered on 07/17/18 13:22; Admin Dose 1 TAB; Start 07/10/18 at 16:30 Diphenhydramine HCl (Benadryl) 25 mg Q6H PRN PO ITCHING Last administered on 07/15/18 18:30; Admin Dose 25 MG; Start 07/10/18 at 20:30 Lorazepam (Ativan) 0.5 mg Q6H PRN PO ANXIETY Last administered on 07/17/18 01:29; Admin Dose 0.5 MG; Start 07/10/18 at 21:30 Zolpidem Tartrate (Ambien) 5 mg HS PRN PO INSOMNIA Last administered on 07/16/18 23:15; Admin Dose 5 MG; Start 07/11/18 at 21:30 Cromolyn Sodium (Nasalcrom) 1 spray TID PRN NASAL NASAL CONGESTION Last administered on 07/17/18 01:28; Admin Dose 1 SPRAY; Start 07/12/18 at 05:04 SUJATA COLVIN Jul 17, 2018 16:08
[2018-07-17 19:46] VITALS: BP 90/56; PULSE 70; RESP 18
[2018-07-17] MEDS: INSULIN GLARGINE [LANTus] (100 UNITS/ML) SYG SC SCH (20:00)
[2018-07-17] MEDS: DIPHENHYDRAMINE 25 MG CAP PO PRN (21:35)
[2018-07-18] MEDS: ZOLPIDEM 5 MG TAB PO PRN (01:23)
[2018-07-18 01:29] VITALS: BP 134/77; PULSE 70; RESP 18
[2018-07-18] MEDS: ACCU-CHEK XX SCH (02:00)
[2018-07-18 07:24] VITALS: BP 102/56; PULSE 77; RESP 18
[2018-07-18] MEDS: INSULIN ASPART [NOVOLOG] 3 ML PEN SC SCH ×7 (08:35→21:00)
[2018-07-18] MEDS: FAMOTIDINE 20 MG TAB PO SCH ×2 (10:25→21:22)
[2018-07-18] MEDS: metFORMIN 500 MG TAB PO SCH ×2 (10:25→18:02)
[2018-07-18] MEDS: ENOXAPARIN 30 MG/0.3 ML SYG SC SCH (10:28)
[2018-07-18 14:44] VITALS: BP 115/58; PULSE 71; RESP 18
--- NOTE | 2018-07-18 14:57 | PN ---
Date/Time of Note Date/Time of Note DATE: 07/18/18 TIME: 14:55 Assessment/Plan VTE Prophylaxis Risk score (from Ns)>0 risk: 4 SCD applied (from Nsg): Yes Pharmacological prophylaxis: LMWH Lines/Catheters IV Catheter Type (from Nrsg): Saline Lock Urinary Cath still in place: No Assessment/Plan Hospital Course Patient remains stable, encourage compliance with carbohydrate diet at mealtime, continue current insulin regimen, awaits for jail facility placement. Assessment/Plan -Status post syncope, 2D echo with preserved ejection fraction, brain CT is negative for acute stroke, carotid Doppler is negative for thrombosis. -Diabetes mellitus with hemoglobin A1c of 8.0. Continue Lantus and NovoLog. -Debility, PT with recommendation for jail facility placement to improve strength. -Homelessness Further recommendations based on clinical course. Plan of care discussed with Dr. Lerma. Results 24hrs Laboratory Tests Test 07/17/18 17:36 07/17/18 20:04 07/17/18 20:28 07/17/18 20:46 Bedside Glucose 112 57 L 74 85 Test 07/17/18 22:01 07/18/18 08:15 07/18/18 12:41 Bedside Glucose 106 164 249 H Exam/Review of Systems Vital Signs Vitals Vital Signs Date Temp Pulse Resp B/P (MAP) Pulse Ox O2 O2 Flow FiO2 Time Delivery Rate 07/18/18 97.3 71 18 115/58 97 Room Air 14:44 (77) Intake and Output 07/17/18 07/17/18 07/18/18 1414:59 22:59 06:59 IntakeIntake Total 820 ml 840 ml 650 ml OutputOutput Total 700 ml BalanceBalance 120 ml 840 ml 650 ml Exam Constitutional: alert, oriented Neck: supple Respiratory: clear to auscultation Cardiovascular: nl pulses Gastrointestinal: soft, non-tender Musculoskeletal: nl extremities to inspection Extremities: normal pulses Medications Medications Current Medications IV Flush (NS 3 ml) 3 ml PER PROTOCOL IV ; Start 06/28/18 at 20:00 Ondansetron HCl (Zofran Inj) 4 mg Q6H PRN IV NAUSEA AND/OR VOMITING; Start 06/28/18 at 20:00 Enoxaparin Sodium (Lovenox) 30 mg DAILY SC Last administered on 07/18/18at 10:28; Admin Dose 30 MG; Start 06/29/18 at 09:00 Miscellaneous Information 1 ea NOTE XX ; Start 06/29/18 at 16:30 Glucose (Glutose) 15 gm Q15M PRN PO DECREASED GLUCOSE Last administered on 07/17/18at 20:09; Admin Dose 15 GM; Start 06/29/18 at 16:30 Glucose (Glutose) 22.5 gm Q15M PRN PO DECREASED GLUCOSE; Start 06/29/18 at 16:30 Dextrose (D50w Syringe) 25 ml Q15M PRN IV DECREASED GLUCOSE; Start 06/29/18 at 16:30 Dextrose (D50w Syringe) 50 ml Q15M PRN IV DECREASED GLUCOSE; Start 06/29/18 at 16:30 Glucagon (Glucagen) 1 mg Q15M PRN IM DECREASED GLUCOSE; Start 06/29/18 at 16:30 Glucose (Glutose) 15 gm Q15M PRN BUCCAL DECREASED GLUCOSE Last administered on 07/02/18at 08:04; Admin Dose 15 GM; Start 06/29/18 at 16:30 Famotidine (Pepcid) 20 mg Q12 PO Last administered on 07/18/18at 10:25; Admin Dose 20 MG; Start 06/29/18 at 21:00 Diagnostic Test (Pha) (Accu-Chek) 1 ea 02 XX Last administered on 07/15/18at 03:00; Admin Dose 1 EA; Start 07/05/18 at 02:00 Insulin Aspart (Novolog Insulin Pen) NOVOLOG *MILD* ALGORITHM WITH MEALS BEDTIME SC Last administered on 07/18/18at 12:55; Admin Dose 3 UNIT; Start 07/04/18 at 21:00 Insulin Aspart (Novolog Insulin Pen) 7 unit WITH BREAKFAST LUNCH SC Last administered on 07/18/18at 12:56; Admin Dose 7 UNIT; Start 07/09/18 at 07:50 Metformin HCl (Glucophage) 500 mg WITH BREAKFAST PO Last administered on 07/18/18at 10:25; Admin Dose 500 MG; Start 07/10/18 at 07:50 Metformin HCl (Glucophage) 500 mg WITH DINNER PO Last administered on 07/17/18 at 17:37; Admin Dose 500 MG; Start 07/09/18 at 17:55 Acetaminophen/ Hydrocodone Bitart ([place] (5/325)) 1 tab Q4H PRN PO MODERATE PAIN LEVEL 4-6 Last administered on 07/17/18at 22:05; Admin Dose 1 TAB; Start 07/10/18 at 16:30 Diphenhydramine HCl (Benadryl) 25 mg Q6H PRN PO ITCHING Last administered on 07/17/18 21:35; Admin Dose 25 MG; Start 07/10/18 at 20:30 Lorazepam (Ativan) 0.5 mg Q6H PRN PO ANXIETY Last administered on 07/17/18at 20:47; Admin Dose 0.5 MG; Start 07/10/18 at 21:30 Zolpidem Tartrate (Ambien) 5 mg HS PRN PO INSOMNIA Last administered on 07/18/18at 01:23; Admin Dose 5 MG; Start 07/11/18 at 21:30 Cromolyn Sodium (Nasalcrom) 1 spray TID PRN NASAL NASAL CONGESTION Last administered on 07/17/18at 01:28; Admin Dose 1 SPRAY; Start 07/12/18 at 05:04 Insulin Aspart (Novolog Insulin Pen) 7 unit WITH DINNER SC ; Start 07/18/18 at 17:55 Insulin Glargine (Lantus) 15 units DAILY@2000 SC ; Start 07/18/18 at 20:00 SUJATA COLVIN Jul 18, 2018 14:57
[2018-07-18] MEDS: LORAZEPAM 0.5 MG TAB PO PRN (18:05)
[2018-07-18 19:30] VITALS: BP 110/64; PULSE 75; RESP 18
[2018-07-18] MEDS: INSULIN GLARGINE [LANTus] (100 UNITS/ML) SYG SC SCH (21:24)
[2018-07-19] MEDS: ACCU-CHEK XX SCH (02:00)
[2018-07-19 02:15] VITALS: BP 119/67; PULSE 77; RESP 18
[2018-07-19 07:52] VITALS: BP 107/59; PULSE 73; RESP 18
[2018-07-19] MEDS: INSULIN ASPART [NOVOLOG] 3 ML PEN SC SCH ×7 (09:17→21:14)
[2018-07-19] MEDS: FAMOTIDINE 20 MG TAB PO SCH ×2 (09:19→20:31)
[2018-07-19] MEDS: metFORMIN 500 MG TAB PO SCH ×2 (09:19→17:51)
[2018-07-19] MEDS: ENOXAPARIN 30 MG/0.3 ML SYG SC SCH (09:19)
--- NOTE | 2018-07-19 14:38 | PN ---
Date/Time of Note Date/Time of Note DATE: 07/19/18 TIME: 14:33 Assessment/Plan VTE Prophylaxis Risk score (from Ns)>0 risk: 3 SCD applied (from Ns): No SCD contraindicated: patient refusal Pharmacological prophylaxis: LMWH Lines/Catheters IV Catheter Type (from Nrs): Saline Lock Urinary Cath still in place: No Assessment/Plan Hospital Course Patient remains hemodynamically stable, afebrile. Patient does not eat much during the day however asking for food the whole night that makes current insulin regimen, encourage compliance with carbohydrate diet at mealtime, continue current insulin regimen, awaits for assisted facility placement. Assessment/Plan -Status post syncope, 2D echo with preserved ejection fraction, brain CT is negative for acute stroke, carotid Doppler is negative for thrombosis. -Diabetes mellitus with hemoglobin A1c of 8.0. Continue Lantus and NovoLog. -Debility, PT with recommendation for assisted facility placement to improve strength. -Homelessness Further recommendations based on clinical course. Plan of care discussed with Dr. Lerma. Results 24hrs Laboratory Tests Test 07/18/18 17:42 07/18/18 21:20 07/19/18 08:50 07/19/18 13:06 Bedside Glucose 188 101 282 H 195 Exam/Review of Systems Vital Signs Vitals Vital Signs Date Temp Pulse Resp B/P (MAP) Pulse Ox O2 O2 Flow FiO2 Time Delivery Rate 07/19/18 97.7 73 18 107/59 96 Room Air 07:52 (75) Intake and Output 07/18/18 07/18/18 07/19/18 1515:00 23:00 07:00 IntakeIntake Total 240 ml OutputOutput Total 1 ml 1 ml BalanceBalance -1 ml 239 ml Exam Constitutional: alert, oriented Neck: supple Respiratory: clear to auscultation Cardiovascular: nl pulses Gastrointestinal: soft, non-tender Musculoskeletal: nl extremities to inspection Extremities: normal pulses Medications Medications Current Medications IV Flush (NS 3 ml) 3 ml PER PROTOCOL IV ; Start 06/28/18 at 20:00 Ondansetron HCl (Zofran Inj) 4 mg Q6H PRN IV NAUSEA AND/OR VOMITING; Start 06/28/18 at 20:00 Enoxaparin Sodium (Lovenox) 30 mg DAILY SC Last administered on 07/19/18at 09:19; Admin Dose 30 MG; Start 06/29/18 at 09:00 Miscellaneous Information 1 ea NOTE XX ; Start 06/29/18 at 16:30 Glucose (Glutose) 15 gm Q15M PRN PO DECREASED GLUCOSE Last administered on 07/17/18at 20:09; Admin Dose 15 GM; Start 06/29/18 at 16:30 Glucose (Glutose) 22.5 gm Q15M PRN PO DECREASED GLUCOSE; Start 06/29/18 at 16:30 Dextrose (D50w Syringe) 25 ml Q15M PRN IV DECREASED GLUCOSE; Start 06/29/18 at 16:30 Dextrose (D50w Syringe) 50 ml Q15M PRN IV DECREASED GLUCOSE; Start 06/29/18 at 16:30 Glucagon (Glucagen) 1 mg Q15M PRN IM DECREASED GLUCOSE; Start 06/29/18 at 16:30 Glucose (Glutose) 15 gm Q15M PRN BUCCAL DECREASED GLUCOSE Last administered on 07/02/18at 08:04; Admin Dose 15 GM; Start 06/29/18 at 16:30 Famotidine (Pepcid) 20 mg Q12 PO Last administered on 07/19/18at 09:19; Admin Dose 20 MG; Start 06/29/18 at 21:00 Diagnostic Test (Pha) (Accu-Chek) 1 ea 02 XX Last administered on 07/15/18at 03:00; Admin Dose 1 EA; Start 07/05/18 at 02:00 Insulin Aspart (Novolog Insulin Pen) NOVOLOG *MILD* ALGORITHM WITH MEALS BEDTIME SC Last administered on 07/19/18at 13:19; Admin Dose 2 UNIT; Start 07/04/18 at 21:00 Insulin Aspart (Novolog Insulin Pen) 7 unit WITH BREAKFAST LUNCH SC Last administered on 07/19/18at 13:18; Admin Dose 7 UNIT; Start 07/09/18 at 07:50 Metformin HCl (Glucophage) 500 mg WITH BREAKFAST PO Last administered on 07/19/18at 09:19; Admin Dose 500 MG; Start 07/10/18 at 07:50 Metformin HCl (Glucophage) 500 mg WITH DINNER PO Last administered on 07/18/18at 18:02; Admin Dose 500 MG; Start 07/09/18 at 17:55 Acetaminophen/ Hydrocodone Bitart ([place] (5/325)) 1 tab Q4H PRN PO MODERATE PAIN LEVEL 4-6 Last administered on 07/17/18 22:05; Admin Dose 1 TAB; Start 07/10/18 at 16:30 Diphenhydramine HCl (Benadryl) 25 mg Q6H PRN PO ITCHING Last administered on 07/17/18 21:35; Admin Dose 25 MG; Start 07/10/18 at 20:30 Lorazepam (Ativan) 0.5 mg Q6H PRN PO ANXIETY Last administered on 07/18/18 18:05; Admin Dose 0.5 MG; Start 07/10/18 at 21:30 Zolpidem Tartrate (Ambien) 5 mg HS PRN PO INSOMNIA Last administered on 07/18/18 01:23; Admin Dose 5 MG; Start 07/11/18 at 21:30 Cromolyn Sodium (Nasalcrom) 1 spray TID PRN NASAL NASAL CONGESTION Last administered on 07/17/18 01:28; Admin Dose 1 SPRAY; Start 07/12/18 at 05:04 Insulin Aspart (Novolog Insulin Pen) 7 unit WITH DINNER SC Last administered on 07/18/18 18:05; Admin Dose 7 UNIT; Start 07/18/18 at 17:55 Insulin Glargine (Lantus) 15 units DAILY@2000 SC Last administered on 07/18/18 21:24; Admin Dose 15 UNITS; Start 07/18/18 at 20:00 SUJATA COLVIN Jul 19, 2018 14:37
[2018-07-19] MEDS: HYDROCODONE/APAP (5/325) TAB PO PRN (16:23)
[2018-07-19] MEDS: LORAZEPAM 0.5 MG TAB PO PRN (17:46)
[2018-07-19] MEDS: DIPHENHYDRAMINE 25 MG CAP PO PRN (18:57)
[2018-07-19 19:30] VITALS: BP 120/74; PULSE 74; RESP 18
[2018-07-19] MEDS: INSULIN GLARGINE [LANTus] (100 UNITS/ML) SYG SC SCH (20:33)
[2018-07-19] MEDS: ZOLPIDEM 5 MG TAB PO PRN (20:44)
[2018-07-20] MEDS: ACCU-CHEK XX SCH (02:00)
[2018-07-20 02:05] VITALS: BP 105/62; PULSE 79; RESP 18
[2018-07-20] MEDS: HYDROCODONE/APAP (5/325) TAB PO PRN ×3 (02:14→15:11)
[2018-07-20] MEDS: LORAZEPAM 0.5 MG TAB PO PRN ×3 (04:40→20:13)
[2018-07-20] MEDS ORDERED: INSULIN ASPART [NOVOLOG] 3 ML PEN SC ONE (06:00)
[2018-07-20 07:34] VITALS: BP 111/60; PULSE 82; RESP 19
[2018-07-20] MEDS: FAMOTIDINE 20 MG TAB PO SCH ×2 (08:34→20:14)
[2018-07-20] MEDS: metFORMIN 500 MG TAB PO SCH ×2 (08:34→18:03)
[2018-07-20] MEDS: ENOXAPARIN 30 MG/0.3 ML SYG SC SCH (08:35)
[2018-07-20] MEDS: INSULIN ASPART [NOVOLOG] 3 ML PEN SC SCH ×7 (08:36→21:00)
--- NOTE | 2018-07-20 14:59 | CONS ---
Date/Time of Note Date/Time of Note DATE: 07/20/18 TIME: 14:51 Assessment/Plan Assessment/Plan Problems: (1) Diabetes mellitus type 2 in nonobese Status: Chronic Comment: He has been insulin treated and is quite possible he does have some pancreatic beta cell insufficiency. I am not certain how much mileage we have gotten from the usage of the metformin but we have not gotten any complications. A consideration would be the addition of pioglitazone to see if that will also help smooth stuff out and it would not hurt to have something that encouraged the uptake of excess calories for storage. I will try and gather more information. Please note the usage of an SGL T2 drug is also consideration although before I give him a medicine that can be dehydrating I actually want to make sure that he is not orthostatic flat versus sitting, and I also need to make sure that he does not have other issues such as cortisol deficiency etc.. In addition to this he will need outpatient diabetic eye screening. We should also check his urine here for microalbumin (2) Orthostasis Status: Chronic Comment: We will check orthostatic vital signs here. Also checking for evidence of cortisol deficiency which could go along with him being so asthenic (3) Debility, unspecified Status: Chronic Comment: He was in another hospital and then transferred to rehab center where he was out for over a year before coming to us. In addition his insurance has changed during his course of his hospitalization here which is slow down our ability to place him. I will try and get a more formalized evaluation done of his debility and make sure to optimize as best were able to. 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 This I will defer off to the primary team. Please note that if he is treated with an antidepressant make sure to use one that does not have orthostasis as a complication (4) Smoker Status: Chronic Comment: He is presently off of cigarettes here in the hospital Result Diagram: 07/20/18 0430 07/20/18 0430 Results 24hrs Laboratory Tests Test 07/19/18 17:50 07/19/18 20:30 07/20/18 01:46 07/20/18 04:30 Bedside Glucose 237 H 333 H 337 H White Blood Count 10.8 Red Blood Count 4.03 L Hemoglobin 11.6 L Hematocrit 34.8 L Mean Corpuscular 86.4 Volume Mean Corpuscular 28.8 L Hemoglobin Mean Corpuscular 33.3 Hemoglobin Concent Red Cell 12.7 Distribution Width Platelet Count 261 Mean Platelet Volume 10.5 H Immature 0.500 H Granulocytes % Neutrophils % 55.0 Lymphocytes % 21.5 Monocytes % 7.9 Eosinophils % 14.3 H Basophils % 0.8 Nucleated Red Blood 0.0 Cells % Immature 0.050 H Granulocytes # Neutrophils # 6.0 Lymphocytes # 2.3 Monocytes # 0.9 Eosinophils # 1.6 H Basophils # 0.1 Nucleated Red Blood 0.0 Cells # Sodium Level 136 Potassium Level 4.5 Chloride Level 97 Carbon Dioxide Level 26 Anion Gap 13 Blood Urea Nitrogen 21 H Creatinine 0.58 L Est Glomerular > 60 Filtrat Rate mL/min Glucose Level 438 *H Calcium Level 9.3 Test 07/20/18 07:50 07/20/18 08:33 07/20/18 12:39 Bedside Glucose 335 H 289 H 87 Consultation Date/Type/Reason Admit Date/Time Jun 28, 2018 at 17:18 Date of Consultation: Jul 20, 2018 Type of Consult Endocrine Reason for Consultation Diabetes mellitus with variable control. A1c 8.0 on admission. Requesting Provider: CHRIS DEL REAL of Present Illness 62-year-old male with diabetes since 2007. Reports he is always been treated with insulin but had had a time where he is on metformin. He has gone as long as missing his insulin for 2 days a few times over this last decade without major consequence outside of hyperglycemia. He denies any known retinal complications, any cerebrovascular complications, any cardiovascular c omplications, any peripheral vascular complications. He denies any erectile dysfunction. He denies any known renal complications, he does note that he has pain and numbness in the legs. Constitutional: no complaints (Specifically denies fevers chills or sweats) Eyes: other (Complains of cloudiness in the field of vision has not had an ophthalmologic evaluation for several years) ENT: no complaints Respiratory: no complaints Cardiovascular: no complaints Gastrointestinal: no complaints (Denies any nausea vomiting diarrhea (please see ER nursing notes from admission) etc.) Genitourinary: no complaints Musculoskeletal: no complaints Skin: no complaints Neurologic: no complaints Endocrine: polyuria, other Past Medical History Medical History: diabetes, high cholesterol Medications Current Medications IV Flush (NS 3 ml) 3 ml PER PROTOCOL IV ; Start 06/28/18 at 20:00 Ondansetron HCl (Zofran Inj) 4 mg Q6H PRN IV NAUSEA AND/OR VOMITING; Start 06/28/18 at 20:00 Enoxaparin Sodium (Lovenox) 30 mg DAILY SC Last administered on 07/20/18 08:35; Admin Dose 30 MG; Start 06/29/18 at 09:00 Miscellaneous Information 1 ea NOTE XX ; Start 06/29/18 at 16:30 Glucose (Glutose) 15 gm Q15M PRN PO DECREASED GLUCOSE Last administered on 07/17/18 20:09; Admin Dose 15 GM; Start 06/29/18 at 16:30 Glucose (Glutose) 22.5 gm Q15M PRN PO DECREASED GLUCOSE; Start 06/29/18 at 16:30 Dextrose (D50w Syringe) 25 ml Q15M PRN IV DECREASED GLUCOSE; Start 06/29/18 at 16:30 Dextrose (D50w Syringe) 50 ml Q15M PRN IV DECREASED GLUCOSE; Start 06/29/18 at 16:30 Glucagon (Glucagen) 1 mg Q15M PRN IM DECREASED GLUCOSE; Start 06/29/18 at 16:30 Glucose (Glutose) 15 gm Q15M PRN BUCCAL DECREASED GLUCOSE Last administered on 07/02/18at 08:04; Admin Dose 15 GM; Start 06/29/18 at 16:30 Famotidine (Pepcid) 20 mg Q12 PO Last administered on 07/20/18 08:34; Admin Dose 20 MG; Start 06/29/18 at 21:00 Diagnostic Test (Pha) (Accu-Chek) 1 ea 02 XX Last administered on 07/15/18 03:00; Admin Dose 1 EA; Start 07/05/18 at 02:00 Insulin Aspart (Novolog Insulin Pen) NOVOLOG *MILD* ALGORITHM WITH MEALS BEDTIME SC Last administered on 07/20/18 08:37; Admin Dose 4 UNIT; Start 07/04/18 at 21:00 Metformin HCl (Glucophage) 500 mg WITH BREAKFAST PO Last administered on 07/20/18 08:34; Admin Dose 500 MG; Start 07/10/18 at 07:50 Metformin HCl (Glucophage) 500 mg WITH DINNER PO Last administered on 07/19/18 17:51; Admin Dose 500 MG; Start 07/09/18 at 17:55 Acetaminophen/ Hydrocodone Bitart ([place] (5/325)) 1 tab Q4H PRN PO MODERATE PAIN LEVEL 4-6 Last administered on 07/20/18 08:51; Admin Dose 1 TAB; Start 07/10/18 at 16:30 Diphenhydramine HCl (Benadryl) 25 mg Q6H PRN PO ITCHING Last administered on 07/19/18 18:57; Admin Dose 25 MG; Start 07/10/18 at 20:30 Lorazepam (Ativan) 0.5 mg Q6H PRN PO ANXIETY Last administered on 07/20/18 10:33; Admin Dose 0.5 MG; Start 07/10/18 at 21:30 Zolpidem Tartrate (Ambien) 5 mg HS PRN PO INSOMNIA Last administered on 07/19/18 20:44; Admin Dose 5 MG; Start 07/11/18 at 21:30 Cromolyn Sodium (Nasalcrom) 1 spray TID PRN NASAL NASAL CONGESTION Last administered on 07/17/18 01:28; Admin Dose 1 SPRAY; Start 07/12/18 at 05:04 Insulin Aspart (Novolog Insulin Pen) 8 unit WITH BREAKFAST LUNCH SC Last administered on 07/20/18 12:50; Admin Dose 8 UNIT; Start 07/20/18 at 07:50 Insulin Aspart (Novolog Insulin Pen) 8 unit WITH DINNER SC ; Start 07/20/18 at 17:55 Insulin Glargine (Lantus) 20 units DAILY@2000 SC ; Start 07/20/18 at 20:00 Testosterone Cypionate (Depo-Testosterone) 200 mg ONCE ONCE IM ; Start 07/21/18 at 09:00; Stop 07/21/18 at 09:01; Status UNV Allergies: Coded Allergies: No Known Allergy (Unverified , 06/28/18) Past Surgical History Past Surgical Hx: noncontributory Family History Significant Family History: no pertinent family hx Social History Alcohol Use: rarely Smoking Status: Current every day smoker Drug Use: none Exam/Review of Systems Vital Signs Vitals Vital Signs Date Temp Pulse Resp B/P (MAP) Pulse Ox O2 O2 Flow FiO2 Time Delivery Rate 07/20/18 98.2 82 19 111/60 96 07:34 (77) 07/19/18 Room Air 07:52 Intake and Output 07/19/18 07/19/18 07/20/18 1515:00 23:00 07:00 IntakeIntake Total 240 ml 480 ml BalanceBalance 240 ml 480 ml Exam male who is easily able to converse with me but refuses to open his eyes to look at me. Psych: depression Head: normocephalic, atraumatic Neck: supple, non-tender Respiratory: clear to auscultation, normal air movement Cardiovascular: regular rate and rhythm, nl pulses Gastrointestinal: soft, nl liver, spleen, non-tender Medications Medications Current Medications IV Flush (NS 3 ml) 3 ml PER PROTOCOL IV ; Start 06/28/18 at 20:00 Ondansetron HCl (Zofran Inj) 4 mg Q6H PRN IV NAUSEA AND/OR VOMITING; Start 06/28/18 at 20:00 Enoxaparin Sodium (Lovenox) 30 mg DAILY SC Last administered on 07/20/18at 08:35; Admin Dose 30 MG; Start 06/29/18 at 09:00 Miscellaneous Information 1 ea NOTE XX ; Start 06/29/18 at 16:30 Glucose (Glutose) 15 gm Q15M PRN PO DECREASED GLUCOSE Last administered on 07/17/18at 20:09; Admin Dose 15 GM; Start 06/29/18 at 16:30 Glucose (Glutose) 22.5 gm Q15M PRN PO DECREASED GLUCOSE; Start 06/29/18 at 16:30 Dextrose (D50w Syringe) 25 ml Q15M PRN IV DECREASED GLUCOSE; Start 06/29/18 at 16:30 Dextrose (D50w Syringe) 50 ml Q15M PRN IV DECREASED GLUCOSE; Start 06/29/18 at 16:30 Glucagon (Glucagen) 1 mg Q15M PRN IM DECREASED GLUCOSE; Start 06/29/18 at 16:30 Glucose (Glutose) 15 gm Q15M PRN BUCCAL DECREASED GLUCOSE Last administered on 07/02/18at 08:04; Admin Dose 15 GM; Start 06/29/18 at 16:30 Famotidine (Pepcid) 20 mg Q12 PO Last administered on 07/20/18at 08:34; Admin Dose 20 MG; Start 06/29/18 at 21:00 Diagnostic Test (Pha) (Accu-Chek) 1 ea 02 XX Last administered on 07/15/18at 03:00; Admin Dose 1 EA; Start 07/05/18 at 02:00 Insulin Aspart (Novolog Insulin Pen) NOVOLOG *MILD* ALGORITHM WITH MEALS BEDTIME SC Last administered on 07/20/18 08:37; Admin Dose 4 UNIT; Start 07/04/18 at 21:00 Metformin HCl (Glucophage) 500 mg WITH BREAKFAST PO Last administered on 07/20/18 08:34; Admin Dose 500 MG; Start 07/10/18 at 07:50 Metformin HCl (Glucophage) 500 mg WITH DINNER PO Last administered on 07/19/18 17:51; Admin Dose 500 MG; Start 07/09/18 at 17:55 Acetaminophen/ Hydrocodone Bitart ([place] (5/325)) 1 tab Q4H PRN PO MODERATE PAIN LEVEL 4-6 Last administered on 07/20/18 08:51; Admin Dose 1 TAB; Start at 16:30 Diphenhydramine HCl (Benadryl) 25 mg Q6H PRN PO ITCHING Last administered on 07/19/18 18:57; Admin Dose 25 MG; Start 07/10/18 at 20:30 Lorazepam (Ativan) 0.5 mg Q6H PRN PO ANXIETY Last administered on 07/20/18 10:33; Admin Dose 0.5 MG; Start 07/10/18 at 21:30 Zolpidem Tartrate (Ambien) 5 mg HS PRN PO INSOMNIA Last administered on 07/19/18 20:44; Admin Dose 5 MG; Start 07/11/18 at 21:30 Cromolyn Sodium (Nasalcrom) 1 spray TID PRN NASAL NASAL CONGESTION Last administered on 07/17/18 01:28; Admin Dose 1 SPRAY; Start 07/12/18 at 05:04 Insulin Aspart (Novolog Insulin Pen) 8 unit WITH BREAKFAST LUNCH SC Last administered on 07/20/18at 12:50; Admin Dose 8 UNIT; Start 07/20/18 at 07:50 Insulin Aspart (Novolog Insulin Pen) 8 unit WITH DINNER SC ; Start 07/20/18 at 17:55 Insulin Glargine (Lantus) 20 units DAILY@2000 SC ; Start 07/20/18 at 20:00 Testosterone Cypionate (Depo-Testosterone) 200 mg ONCE ONCE IM ; Start 07/21/18 at 09:00; Stop 07/21/18 at 09:01; Status MEGHNA MIKE MD Jul 20, 2018 14:59
--- NOTE | 2018-07-20 15:11 | PN ---
Date/Time of Note Date/Time of Note DATE: 07/20/18 TIME: 15:10 Assessment/Plan VTE Prophylaxis Risk score (from [facility])>0 risk: 2 SCD applied (from [facility]): Yes SCD contraindicated: other Pharmacological prophylaxis: other Pharm contraindication: other Lines/Catheters IV C[facility]ter Type (from [facility] Saline Lock Urinary Cath still in place: No Assessment/Plan Assessment/Plan -Status post syncope, 2D echo with preserved ejection fraction, brain CT is negative for acute stroke, carotid Doppler is negative for thrombosis. -Diabetes mellitus with hemoglobin A1c of 8.0. Continue Lantus and NovoLog. -Debility, PT with recommendation for prison facility placement to improve strength. -Homelessness Further recommendations based on clinical course. Plan of care discussed with Dr. Lerma. Result Diagram: 07/20/180 07/20/18 0430 Results 24hrs Laboratory Tests Test 07/19/18 17:50 07/19/18 20:30 07/20/18 01:46 07/20/18 04:30 Bedside Glucose 237 H 333 H 337 H White Blood Count 10.8 Red Blood Count 4.03 L Hemoglobin 11.6 L Hematocrit 34.8 L Mean Corpuscular 86.4 Volume Mean Corpuscular 28.8 L Hemoglobin Mean Corpuscular 33.3 Hemoglobin Concent Red Cell 12.7 Distribution Width Platelet Count 261 Mean Platelet Volume 10.5 H Immature 0.500 H Granulocytes % Neutrophils % 55.0 Lymphocytes % 21.5 Monocytes % 7.9 Eosinophils % 14.3 H Basophils % 0.8 Nucleated Red Blood 0.0 Cells % Immature 0.050 H Granulocytes # Neutrophils # 6.0 Lymphocytes # 2.3 Monocytes # 0.9 Eosinophils # 1.6 H Basophils # 0.1 Nucleated Red Blood 0.0 Cells # Sodium Level 136 Potassium Level 4.5 Chloride Level 97 Carbon Dioxide Level 26 Anion Gap 13 Blood Urea Nitrogen 21 H Creatinine 0.58 L Est Glomerular > 60 Filtrat Rate mL/min Glucose Level 438 *H Calcium Level 9.3 Test 07/20/18 07:50 07/20/18 08:33 07/20/18 12:39 Bedside Glucose 335 H 289 H 87 Exam/Review of Systems Vital Signs Vitals Vital Signs Date Temp Pulse Resp B/P (MAP) Pulse Ox O2 O2 Flow FiO2 Time Delivery Rate 07/20/18 98.2 82 19 111/60 96 07:34 (77) 07/19/18 Room Air 07:52 Intake and Output 07/19/18 07/19/18 07/20/18 1515:00 23:00 07:00 IntakeIntake Total 240 ml 480 ml BalanceBalance 240 ml 480 ml Medications Medications Current Medications IV Flush (NS 3 ml) 3 ml PER PROTOCOL IV ; Start 06/28/18 at 20:00 Ondansetron HCl (Zofran Inj) 4 mg Q6H PRN IV NAUSEA AND/OR VOMITING; Start 06/28/18 at 20:00 Enoxaparin Sodium (Lovenox) 30 mg DAILY SC Last administered on 07/20/18at 08:35; Admin Dose 30 MG; Start 06/29/18 at 09:00 Miscellaneous Information 1 ea NOTE XX ; Start 06/29/18 at 16:30 Glucose (Glutose) 15 gm Q15M PRN PO DECREASED GLUCOSE Last administered on 07/17/18at 20:09; Admin Dose 15 GM; Start 06/29/18 at 16:30 Glucose (Glutose) 22.5 gm Q15M PRN PO DECREASED GLUCOSE; Start 06/29/18 at 16 :30 Dextrose (D50w Syringe) 25 ml Q15M PRN IV DECREASED GLUCOSE; Start 06/29/18 at 16:30 Dextrose (D50w Syringe) 50 ml Q15M PRN IV DECREASED GLUCOSE; Start 06/29/18 at 16:30 Glucagon (Glucagen) 1 mg Q15M PRN IM DECREASED GLUCOSE; Start 06/29/18 at 16:30 Glucose (Glutose) 15 gm Q15M PRN BUCCAL DECREASED GLUCOSE Last administered on 07/02/18at 08:04; Admin Dose 15 GM; Start 06/29/18 at 16:30 Famotidine (Pepcid) 20 mg Q12 PO Last administered on 07/20/18at 08:34; Admin Dose 20 MG; Start 06/29/18 at 21:00 Diagnostic Test (Pha) (Accu-Chek) 1 ea 02 XX Last administered on 07/15/18at 03:00; Admin Dose 1 EA; Start 07/05/18 at 02:00 Insulin Aspart (Novolog Insulin Pen) NOVOLOG *MILD* ALGORITHM WITH MEALS BEDTIME SC Last administered on 07/20/18 08:37; Admin Dose 4 UNIT; Start 07/04/18 at 21:00 Metformin HCl (Glucophage) 500 mg WITH BREAKFAST PO Last administered on 07/20/18 08:34; Admin Dose 500 MG; Start 07/10/18 at 07:50 Metformin HCl (Glucophage) 500 mg WITH DINNER PO Last administered on 07/19/18 17:51; Admin Dose 500 MG; Start 07/09/18 at 17:55 Acetaminophen/ Hydrocodone Bitart ([place] (5/325)) 1 tab Q4H PRN PO MODERATE PAIN LEVEL 4-6 Last administered on 07/20/18 08:51; Admin Dose 1 TAB; Start 07/10/18 at 16:30 Diphenhydramine HCl (Benadryl) 25 mg Q6H PRN PO ITCHING Last administered on 07/19/18 18:57; Admin Dose 25 MG; Start 07/10/18 at 20:30 Lorazepam (Ativan) 0.5 mg Q6H PRN PO ANXIETY Last administered on 07/20/18 10:33; Admin Dose 0.5 MG; Start 07/10/18 at 21:30 Zolpidem Tartrate (Ambien) 5 mg HS PRN PO INSOMNIA Last administered on 07/19/18 20:44; Admin Dose 5 MG; Start 07/11/18 at 21:30 Cromolyn Sodium (Nasalcrom) 1 spray TID PRN NASAL NASAL CONGESTION Last administered on 07/17/18 01:28; Admin Dose 1 SPRAY; Start 07/12/18 at 05:04 Insulin Aspart (Novolog Insulin Pen) 8 unit WITH BREAKFAST LUNCH SC Last administered on 07/20/18at 12:50; Admin Dose 8 UNIT; Start 07/20/18 at 07:50 Insulin Aspart (Novolog Insulin Pen) 8 unit WITH DINNER SC ; Start 07/20/18 at 17:55 Insulin Glargine (Lantus) 20 units DAILY@2000 SC ; Start 07/20/18 at 20:00 Testosterone Cypionate (Depo-Testosterone) 200 mg ONCE ONCE IM ; Start 07/21/18 at 09:00; Stop 07/21/18 at 09:01 CHRIS DEL REAL Jul 20, 2018 15:10
[2018-07-20 19:40] VITALS: BP_SYST 111; BP_SYST 93; BP_DIAS 62; BP_DIAS 65; PULSE 70; RESP 18
[2018-07-20 19:43] VITALS: BP 93/62; PULSE 71
[2018-07-20] MEDS: INSULIN GLARGINE [LANTus] (100 UNITS/ML) SYG SC SCH (20:19)
[2018-07-20] MEDS ORDERED: CYANOCOBALAMIN 500 MCG TAB PO ONE (23:30)
[2018-07-21 02:00] VITALS: BP 106/55; PULSE 71; RESP 18
[2018-07-21] MEDS: ACCU-CHEK XX SCH (02:00)
[2018-07-21] MEDS: HYDROCODONE/APAP (5/325) TAB PO PRN ×3 (04:34→23:39)
[2018-07-21 07:54] VITALS: BP 97/55; PULSE 71; RESP 14
[2018-07-21] MEDS: metFORMIN 500 MG TAB PO SCH ×2 (08:46→17:36)
[2018-07-21] MEDS: INSULIN ASPART [NOVOLOG] 3 ML PEN SC SCH ×8 (08:47→20:34)
[2018-07-21] MEDS: ENOXAPARIN 30 MG/0.3 ML SYG SC SCH (08:48)
[2018-07-21] MEDS: FAMOTIDINE 20 MG TAB PO SCH ×2 (08:48→20:28)
[2018-07-21] MEDS: CYANOCOBALAMIN 500 MCG TAB PO SCH (08:48)
[2018-07-21] MEDS ORDERED: TESTOSTERONE CYPIONATE 200 MG/ML INJ IM ONE (09:00)
--- NOTE | 2018-07-21 09:22 | CONS ---
Date/Time of Note Date/Time of Note DATE: 07/21/18 TIME: 09:16 Assessment/Plan Assessment/Plan Problems: (1) Diabetes mellitus type 2 in nonobese Status: Chronic Comment: In the midst of workup. In addition can do the urine test to make sure we do not have albumin loss in the urine. I am concerned he may have a complication of autonomic neuropathy given his orthostatic vital signs where he dropped his blood pressure over 20 points and did not bump his pulse and is not on any medicines that would slow down the pulse. Adding in pioglitazone to see how we can do to control this. Please note this patient is not very thrilled with us and cooperation will be a challenge (2) Orthostasis Status: Chronic Comment: This is definitely present in this patient who smokes. 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 Given that he is a smoker we will do a screening chest CT. I am in the midst of the cortisol evaluation although I doubt that that is what the etiology is as if it was due to adrenal insufficiency the pulse should have bumped upward. Also going to initiate midodrine and elevate the head of the bed 30 degrees at all times although the patient may not cooperate. He declined support SHARMAINE pires (3) Diabetic peripheral neuropathy Status: Chronic Comment: Noted. Patient declines intervention (4) Debility, unspecified Status: Chronic Comment: Attempting to do what we can to improve his quality of life. Please note he has B12 deficiency (5) B12 deficiency Status: Chronic Comment: Noted and now is being treated Result Diagram: 07/20/18 0430 07/20/18 1508 Results 24hrs Laboratory Tests Test 07/20/18 12:39 07/20/18 15:08 07/20/18 17:51 07/20/18 20:15 Bedside Glucose 87 122 130 Sodium Level 136 Potassium Level 4.2 Chloride Level 98 Carbon Dioxide Level 28 Anion Gap 10 Blood Urea Nitrogen 23 H Creatinine 0.52 L Est Glomerular > 60 Filtrat Rate mL/min Glucose Level 116 # Calcium Level 9.5 Vitamin B12 Level 262 Thyroid Stimulating 5.330 H Hormone (TSH) Hepatitis B Surface NEGATIVE Antigen Hepatitis C Antibody NEGATIVE Test 07/20/18 23:45 07/21/18 08:41 Random Cortisol 4.9 Bedside Glucose 315 H Consultation Date/Type/Reason Admit Date/Time Jun 28, 2018 at 17:18 Initial Consult Date 07/20/18 Type of Consult Endocrine Reason for Consultation Diabetes mellitus with complications of peripheral neuropathy, probable autonomic neuropathy with orthostasis etc. Requesting Provider: CHRIS DEL REAL 24 HR Interval Summary Free Text/Dictation Patient opens his eyes and is willing to look at me today. Still focused on his dizziness and not feeling well. Constitutional: no complaints (No fevers chills or sweats) Detailed Summary Respiratory: no complaints Cardiovascular: no complaints Gastrointestinal: no complaints Genitourinary: no complaints Neurologic: dizziness Endocrine: no complaints Exam/Review of Systems Vital Signs Vitals Vital Signs Date Temp Pulse Resp B/P (MAP) Pulse Ox O2 O2 Flow FiO2 Time Delivery Rate 07/21/18 98.7 71 14 97/55 (69) 98 Room Air 07:54 Intake and Output 07/20/18 07/20/18 07/21/18 1515:00 23:00 07:00 IntakeIntake Total 1420 ml 840 ml OutputOutput Total 2 ml 700 ml BalanceBalance 1418 ml 140 ml Exam Constitutional: alert, oriented Respiratory: clear to auscultation, normal air movement Cardiovascular: regular rate and rhythm, nl pulses Medications Medications Current Medications IV Flush (NS 3 ml) 3 ml PER PROTOCOL IV ; Start 06/28/18 at 20:00 Ondansetron HCl (Zofran Inj) 4 mg Q6H PRN IV NAUSEA AND/OR VOMITING; Start 06/28/18 at 20:00 Enoxaparin Sodium (Lovenox) 30 mg DAILY SC Last administered on 07/21/18at 08:48; Admin Dose 30 MG; Start 06/29/18 at 09:00 Miscellaneous Information 1 ea NOTE XX ; Start 06/29/18 at 16:30 Glucose (Glutose) 15 gm Q15M PRN PO DECREASED GLUCOSE Last administered on 07/17/18at 20:09; Admin Dose 15 GM; Start 06/29/18 at 16:30 Glucose (Glutose) 22.5 gm Q15M PRN PO DECREASED GLUCOSE; Start 06/29/18 at 16:30 Dextrose (D50w Syringe) 25 ml Q15M PRN IV DECREASED GLUCOSE; Start 06/29/18 at 16:30 Dextrose (D50w Syringe) 50 ml Q15M PRN IV DECREASED GLUCOSE; Start 06/29/18 at 16:30 Glucagon (Glucagen) 1 mg Q15M PRN IM DECREASED GLUCOSE; Start 06/29/18 at 16:30 Glucose (Glutose) 15 gm Q15M PRN BUCCAL DECREASED GLUCOSE Last administered on 07/02/18 08:04; Admin Dose 15 GM; Start 06/29/18 at 16:30 Famotidine (Pepcid) 20 mg Q12 PO Last administered on 07/21/18 08:48; Admin Dose 20 MG; Start 06/29/18 at 21:00 Diagnostic Test (Pha) (Accu-Chek) 1 ea 02 XX Last administered on 07/15/18 03:00; Admin Dose 1 EA; Start 07/05/18 at 02:00 Insulin Aspart (Novolog Insulin Pen) NOVOLOG *MILD* ALGORITHM WITH MEALS BEDTIME SC Last administered on 07/21/18 08:47; Admin Dose 5 UNIT; Start 07/04/18 at 21:00 Metformin HCl (Glucophage) 500 mg WITH BREAKFAST PO Last administered on 07/21/18 08:46; Admin Dose 500 MG; Start 07/10/18 at 07:50 Metformin HCl (Glucophage) 500 mg WITH DINNER PO Last administered on 07/20/18 18:03; Admin Dose 500 MG; Start 07/09/18 at 17:55 Acetaminophen/ Hydrocodone Bitart ([place] (5/325)) 1 tab Q4H PRN PO MODERATE PAIN LEVEL 4-6 Last administered on 07/21/18 04:34; Admin Dose 1 TAB; Start 07/10/18 at 16:30 Diphenhydramine HCl (Benadryl) 25 mg Q6H PRN PO ITCHING Last administered on 07/19/18 18:57; Admin Dose 25 MG; Start 07/10/18 at 20:30 Lorazepam (Ativan) 0.5 mg Q6H PRN PO ANXIETY Last administered on 07/20/18 20:13; Admin Dose 0.5 MG; Start 07/10/18 at 21:30 Zolpidem Tartrate (Ambien) 5 mg HS PRN PO INSOMNIA Last administered on 07/19/18 20:44; Admin Dose 5 MG; Start 07/11/18 at 21:30 Cromolyn Sodium (Nasalcrom) 1 spray TID PRN NASAL NASAL CONGESTION Last administered on 07/17/18at 01:28; Admin Dose 1 SPRAY; Start 07/12/18 at 05:04 Insulin Aspart (Novolog Insulin Pen) 8 unit WITH BREAKFAST LUNCH SC Last administered on 07/21/18at 08:47; Admin Dose 8 UNIT; Start 07/20/18 at 07:50 Insulin Aspart (Novolog Insulin Pen) 8 unit WITH DINNER SC Last administered on 07/20/18at 18:03; Admin Dose 8 UNIT; Start 07/20/18 at 17:55 Insulin Glargine (Lantus) 20 units DAILY@2000 SC Last administered on 07/20/18at 20:19; Admin Dose 20 UNITS; Start 07/20/18 at 20:00 Cyanocobalamin (Vitamin B12) 1,000 mcg DAILY PO Last administered on 07/21/18at 08:48; Admin Dose 1,000 MCG; Start 07/21/18 at 09:00 Pioglitazone HCl (Actos) 30 mg DAILY PO ; Start 07/21/18 at 09:30; Status UNV Midodrine (Proamatine) 5 mg TID@09,13,17 PO ; Start 07/21/18 at 13:00; Status MEGHNA MIKE MD Jul 21, 2018 09:22
[2018-07-21] MEDS: LORAZEPAM 0.5 MG TAB PO PRN ×2 (10:06→23:35)
[2018-07-21] MEDS: PIOGLITAZONE 30 MG TAB PO SCH (12:46)
--- NOTE | 2018-07-21 13:42 | PN ---
Date/Time of Note Date/Time of Note DATE: 07/21/18 TIME: 13:42 Assessment/Plan VTE Prophylaxis Risk score (from [facility])>0 risk: 3 SCD applied (from [facility]): No Lines/Catheters IV Catheter Type (from [facility]rs[facility]): Saline Lock Urinary Cath still in place: No Assessment/Plan Assessment/Plan -Status post syncope, 2D echo with preserved ejection fraction, brain CT is negative for acute stroke, carotid Doppler is negative for thrombosis. -Diabetes mellitus with hemoglobin A1c of 8.0. Continue Lantus and NovoLog. - per endo -Debility, PT with recommendation for residential facility placement to improve strength. -Homelessness Further recommendations based on clinical course. Plan of care discussed with Jenniffer Lerma. Result Diagram: 07/20/18 0430 07/20/18 1508 Results 24hrs Laboratory Tests Test 07/20/18 15:08 07/20/18 17:51 07/20/18 20:15 07/20/18 23:45 Sodium Level 136 Potassium Level 4.2 Chloride Level 98 Carbon Dioxide Level 28 Anion Gap 10 Blood Urea Nitrogen 23 H Creatinine 0.52 L Est Glomerular > 60 Filtrat Rate mL/min Glucose Level 116 # C-Peptide 0.30 L Calcium Level 9.5 Vitamin B12 Level 262 25-Hydroxy Vitamin D Pending Total 25-Hydroxy Vitamin Pending D2 25-Hydroxy Vitamin Pending D3 Thyroid Stimulating 5.330 H Hormone (TSH) Total Testosterone Pending Free Testosterone Pending (Calc) Hepatitis B Surface NEGATIVE Antigen Hepatitis C Antibody NEGATIVE Bedside Glucose 122 130 Random Cortisol 4.9 Test 07/21/18 08:41 07/21/18 11:36 07/21/18 12:43 Bedside Glucose 315 H 146 Triglycerides Level 136 Cholesterol Level 136 LDL Cholesterol, 82 Calculated HDL Cholesterol 27 L Cholesterol/HDL 5.0 Ratio Exam/Review of Systems Vital Signs Vitals Vital Signs Date Temp Pulse Resp B/P (MAP) Pulse Ox O2 O2 Flow FiO2 Time Delivery Rate 07/21/18 98.7 71 14 97/55 (69) 98 Room Air 07:54 Intake and Output 07/20/18 07/20/18 07/21/18 1515:00 23:00 07:00 IntakeIntake Total 1420 ml 840 ml OutputOutput Total 2 ml 700 ml BalanceBalance 1418 ml 140 ml Medications Medications Current Medications IV Flush (NS 3 ml) 3 ml PER PROTOCOL IV ; Start 06/28/18 at 20:00 Ondansetron HCl (Zofran Inj) 4 mg Q6H PRN IV NAUSEA AND/OR VOMITING; Start 06/28/18 at 20:00 Enoxaparin Sodium (Lovenox) 30 mg DAILY SC Last administered on 07/21/18 08:48; Admin Dose 30 MG; Start 06/29/18 at 09:00 Miscellaneous Information 1 ea NOTE XX ; Start 06/29/18 at 16:30 Glucose (Glutose) 15 gm Q15M PRN PO DECREASED GLUCOSE Last administered on 07/17/18 20:09; Admin Dose 15 GM; Start 06/29/18 at 16:30 Glucose (Glutose) 22.5 gm Q15M PRN PO DECREASED GLUCOSE; Start 06/29/18 at 16:30 Dextrose (D50w Syringe) 25 ml Q15M PRN IV DECREASED GLUCOSE; Start 06/29/18 at 16:30 Dextrose (D50w Syringe) 50 ml Q15M PRN IV DECREASED GLUCOSE; Start 06/29/18 at 16:30 Glucagon (Glucagen) 1 mg Q15M PRN IM DECREASED GLUCOSE; Start 06/29/18 at 16:30 Glucose (Glutose) 15 gm Q15M PRN BUCCAL DECREASED GLUCOSE Last administered on 07/02/18at 08:04; Admin Dose 15 GM; Start 06/29/18 at 16:30 Famotidine (Pepcid) 20 mg Q12 PO Last administered on 07/21/18 08:48; Admin Dose 20 MG; Start 06/29/18 at 21:00 Diagnostic Test (Pha) (Accu-Chek) 1 ea 02 XX Last administered on 07/15/18at 03:00; Admin Dose 1 EA; Start 07/05/18 at 02:00 Insulin Aspart (Novolog Insulin Pen) NOVOLOG *MILD* ALGORITHM WITH MEALS BEDTIME SC Last administered on 07/21/18 12:47; Admin Dose 1 UNIT; Start 07/04/18 at 21:00 Metformin HCl (Glucophage) 500 mg WITH BREAKFAST PO Last administered on 07/21/18 08:46; Admin Dose 500 MG; Start 07/10/18 at 07:50 Metformin HCl (Glucophage) 500 mg WITH DINNER PO Last administered on 07/20/18 18:03; Admin Dose 500 MG; Start 07/09/18 at 17:55 Acetaminophen/ Hydrocodone Bitart ([place] (5/325)) 1 tab Q4H PRN PO MODERATE PAIN LEVEL 4-6 Last administered on 07/21/18 10:59; Admin Dose 1 TAB; Start 07/10/18 at 16:30 Diphenhydramine HCl (Benadryl) 25 mg Q6H PRN PO ITCHING Last administered on 07/19/18 18:57; Admin Dose 25 MG; Start 07/10/18 at 20:30 Lorazepam (Ativan) 0.5 mg Q6H PRN PO ANXIETY Last administered on 07/21/18 10:06; Admin Dose 0.5 MG; Start 07/10/18 at 21:30 Zolpidem Tartrate (Ambien) 5 mg HS PRN PO INSOMNIA Last administered on 07/19/18 20:44; Admin Dose 5 MG; Start 07/11/18 at 21:30 Cromolyn Sodium (Nasalcrom) 1 spray TID PRN NASAL NASAL CONGESTION Last administered on 07/17/18 01:28; Admin Dose 1 SPRAY; Start 07/12/18 at 05:04 Insulin Aspart (Novolog Insulin Pen) 8 unit WITH BREAKFAST LUNCH SC Last administered on 07/21/18 12:47; Admin Dose 8 UNIT; Start 07/20/18 at 07:50 Insulin Aspart (Novolog Insulin Pen) 8 unit WITH DINNER SC Last administered on 07/20/18at 18:03; Admin Dose 8 UNIT; Start 07/20/18 at 17:55 Insulin Glargine (Lantus) 20 units DAILY@2000 SC Last administered on 07/20/18 20:19; Admin Dose 20 UNITS; Start 07/20/18 at 20:00 Cyanocobalamin (Vitamin B12) 1,000 mcg DAILY PO Last administered on 07/21/18 08:48; Admin Dose 1,000 MCG; Start 07/21/18 at 09:00 Pioglitazone HCl (Actos) 30 mg DAILY PO Last administered on 07/21/18 12:46; Admin Dose 30 MG; Start 07/21/18 at 10:30 Midodrine (Proamatine) 5 mg TID@,,17 PO ; Start 07/21/18 at 13:00 CHRIS DEL REAL Jul 21, 2018 13:42
[2018-07-21] MEDS: MIDODRINE 5 MG TAB PO SCH ×2 (13:57→17:35)
[2018-07-21 15:03] VITALS: BP 85/55; PULSE 62; RESP 17
[2018-07-21 15:50] VITALS: BP 103/64; PULSE 66
[2018-07-21 19:49] VITALS: BP 150/70; PULSE 68; RESP 18
[2018-07-21] MEDS: INSULIN GLARGINE [LANTus] (100 UNITS/ML) SYG SC SCH (20:33)
[2018-07-21] MEDS ORDERED: COSYNTROPIN 0.25 MG INJ IV ONE (21:35)
[2018-07-21] MEDS ORDERED: MAGNESIUM HYDROXIDE 30ML CUP PO ONE (23:00)
[2018-07-22] MEDS: ZOLPIDEM 5 MG TAB PO PRN ×2 (01:44→22:26)
[2018-07-22] MEDS: ACCU-CHEK XX SCH (01:56)
[2018-07-22 02:00] VITALS: BP 116/68; PULSE 71; RESP 18
[2018-07-22 08:20] VITALS: BP 108/63; PULSE 68; RESP 14
[2018-07-22] MEDS: metFORMIN 500 MG TAB PO SCH ×2 (08:33→17:43)
[2018-07-22] MEDS: FAMOTIDINE 20 MG TAB PO SCH ×2 (08:33→20:31)
[2018-07-22] MEDS: PIOGLITAZONE 30 MG TAB PO SCH (08:34)
[2018-07-22] MEDS: MIDODRINE 5 MG TAB PO SCH ×3 (08:34→18:14)
[2018-07-22] MEDS: ENOXAPARIN 30 MG/0.3 ML SYG SC SCH (08:36)
[2018-07-22] MEDS: INSULIN ASPART [NOVOLOG] 3 ML PEN SC SCH ×7 (08:37→22:11)
[2018-07-22] MEDS: CYANOCOBALAMIN 500 MCG TAB PO SCH (10:39)
--- NOTE | 2018-07-22 11:18 | CONS ---
Date/Time of Note Date/Time of Note DATE: 07/22/18 TIME: 11:14 Assessment/Plan Assessment/Plan Problems: (1) Diabetes mellitus type 2 in nonobese Status: Chronic Comment: Sugar control is fair. Please note the patient is variable about his caloric intake for us to steve, we will continue working with this. Please note he does have complications of this see below (2) Orthostasis Status: Chronic Comment: His orthostasis may be better. In the course of the evaluation for this we made sure he does not have a pulmonary lesion to induce Shy-Drager syndrome. Fortunately his CT scan is negative. His cortisol levels were not the most appropriate under his circumstances and I attempted to do an evaluation of this but the patient refuses. In addition he is intermittently refusing the midodrine to help with this, and refusing to elevate the head of the bed despite having a careful discussion on this on 2 separate occasions and by now demonstrating it to him. 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 (4) B12 deficiency Status: Chronic Comment: On replacement now (5) Diabetic peripheral neuropathy Status: Chronic Comment: Noted Result Diagram: 07/20/18 0430 07/20/18 1508 Results 24hrs Laboratory Tests Test 07/21/18 11:36 07/21/18 12:43 07/21/18 17:36 07/21/18 20:30 Triglycerides Level 136 Cholesterol Level 136 LDL Cholesterol, 82 Calculated HDL Cholesterol 27 L Cholesterol/HDL 5.0 Ratio Random Cortisol 6.9 Bedside Glucose 146 77 182 Test 07/21/18 21:35 07/21/18 22:05 07/21/18 22:34 07/22/18 01:52 Random Cortisol 5.9 12.6 9.2 Bedside Glucose 323 H Test 07/22/18 01:55 07/22/18 08:32 Bedside Glucose 366 H 323 H Consultation Date/Type/Reason Admit Date/Time Jun 28, 2018 at 17:18 Initial Consult Date 07/20/18 Type of Consult Endocrine Reason for Consultation Diabetes mellitus type 2; peripheral neuropathy; possible autonomic neuropathy with orthostasis; Requesting Provider: CHRIS DEL REAL 24 HR Interval Summary Free Text/Dictation Patient refused Cortrosyn stimulation test last night. Patient verbally refuses to have the head of his bed elevated saying I cannot take that. Please not to demonstrate how much elevation that I intended and he said "he could do that" Constitutional: no complaints Detailed Summary Cardiovascular: no complaints Gastrointestinal: no complaints Neurologic: other (Complains of weakness) Exam/Review of Systems Vital Signs Vitals Vital Signs Date Temp Pulse Resp B/P (MAP) Pulse Ox O2 O2 Flow FiO2 Time Delivery Rate 07/22/18 98.5 68 14 108/63 95 Room Air 08:20 (78) Intake and Output 07/21/18 07/21/18 07/22/18 1515:00 23:00 07:00 IntakeIntake Total 660 ml 320 ml 680 ml OutputOutput Total 1501 ml 301 ml BalanceBalance 660 ml -1181 ml 379 ml Exam Constitutional: alert, oriented Neck: supple, non-tender Respiratory: clear to auscultation, normal air movement Cardiovascular: regular rate and rhythm, nl pulses Medications Medications Current Medications IV Flush (NS 3 ml) 3 ml PER PROTOCOL IV ; Start 06/28/18 at 20:00 Ondansetron HCl (Zofran Inj) 4 mg Q6H PRN IV NAUSEA AND/OR VOMITING; Start 06/28/18 at 20:00 Enoxaparin Sodium (Lovenox) 30 mg DAILY SC Last administered on 07/22/18at 08:36; Admin Dose 30 MG; Start 06/29/18 at 09:00 Miscellaneous Information 1 ea NOTE XX ; Start 06/29/18 at 16:30 Glucose (Glutose) 15 gm Q15M PRN PO DECREASED GLUCOSE Last administered on 07/17/18at 20:09; Admin Dose 15 GM; Start 06/29/18 at 16:30 Glucose (Glutose) 22.5 gm Q15M PRN PO DECREASED GLUCOSE; Start 06/29/18 at 16:30 Dextrose (D50w Syringe) 25 ml Q15M PRN IV DECREASED GLUCOSE; Start 06/29/18 at 16:30 Dextrose (D50w Syringe) 50 ml Q15M PRN IV DECREASED GLUCOSE; Start 06/29/18 at 16:30 Glucagon (Glucagen) 1 mg Q15M PRN IM DECREASED GLUCOSE; Start 06/29/18 at 16:30 Glucose (Glutose) 15 gm Q15M PRN BUCCAL DECREASED GLUCOSE Last administered on 07/02/18 08:04; Admin Dose 15 GM; Start 06/29/18 at 16:30 Famotidine (Pepcid) 20 mg Q12 PO Last administered on 07/22/18 08:33; Admin Dose 20 MG; Start 06/29/18 at 21:00 Diagnostic Test (Pha) (Accu-Chek) 1 ea 02 XX Last administered on 07/22/18 01:56; Admin Dose 1 EA; Start 07/05/18 at 02:00 Insulin Aspart (Novolog Insulin Pen) NOVOLOG *MILD* ALGORITHM WITH MEALS BEDTIME SC Last administered on 07/22/18 08:37; Admin Dose 5 UNIT; Start 07/04/18 at 21:00 Metformin HCl (Glucophage) 500 mg WITH BREAKFAST PO Last administered on 07/22/18 08:33; Admin Dose 500 MG; Start 07/10/18 at 07:50 Metformin HCl (Glucophage) 500 mg WITH DINNER PO Last administered on 07/21/18 17:36; Admin Dose 500 MG; Start 07/09/18 at 17:55 Acetaminophen/ Hydrocodone Bitart ([place] (5/325)) 1 tab Q4H PRN PO MODERATE PAIN LEVEL 4-6 Last administered on 07/21/18 23:39; Admin Dose 1 TAB; Start 07/10/18 at 16:30 Diphenhydramine HCl (Benadryl) 25 mg Q6H PRN PO ITCHING Last administered on 07/19/18 18:57; Admin Dose 25 MG; Start 07/10/18 at 20:30 Lorazepam (Ativan) 0.5 mg Q6H PRN PO ANXIETY Last administered on 07/21/18 23:35; Admin Dose 0.5 MG; Start 07/10/18 at 21:30 Zolpidem Tartrate (Ambien) 5 mg HS PRN PO INSOMNIA Last administered on 07/22/18 01:44; Admin Dose 5 MG; Start 07/11/18 at 21:30 Cromolyn Sodium (Nasalcrom) 1 spray TID PRN NASAL NASAL CONGESTION Last administered on 07/17/18 01:28; Admin Dose 1 SPRAY; Start 07/12/18 at 05:04 Insulin Aspart (Novolog Insulin Pen) 8 unit WITH BREAKFAST LUNCH SC Last administered on 07/22/18 08:37; Admin Dose 8 UNIT; Start 07/20/18 at 07:50 Insulin Aspart (Novolog Insulin Pen) 8 unit WITH DINNER SC Last administered on 07/20/18 18:03; Admin Dose 8 UNIT; Start 07/20/18 at 17:55 Insulin Glargine (Lantus) 20 units DAILY@2000 SC Last administered on 07/21/18 20:33; Admin Dose 20 UNITS; Start 07/20/18 at 20:00 Cyanocobalamin (Vitamin B12) 1,000 mcg DAILY PO Last administered on 07/22/18 10:39; Admin Dose 1,000 MCG; Start 07/21/18 at 09:00 Pioglitazone HCl (Actos) 30 mg DAILY PO Last administered on 07/22/18 08:34; A dmin Dose 30 MG; Start 07/21/18 at 10:30 Midodrine (Proamatine) 5 mg TID@09,13,17 PO Last administered on 07/22/18 08:34; Admin Dose 5 MG; Start 07/21/18 at 13:00 MEGHNA SHARP MD Jul 22, 2018 11:18
[2018-07-22] MEDS: HYDROCODONE/APAP (5/325) TAB PO PRN ×2 (11:39→20:31)
--- NOTE | 2018-07-22 14:24 | PN ---
Date/Time of Note Date/Time of Note DATE: 07/22/18 TIME: 14:24 Assessment/Plan VTE Prophylaxis Risk score (from Nsg)>0 risk: 3 SCD applied (from Nsg): No Lines/Catheters IV Catheter Type (from Nrsg): [place] Lock Urinary Cath still in place: No Assessment/Plan Assessment/Plan -Status post syncope, 2D echo with preserved ejection fraction, brain CT is negative for acute stroke, carotid Doppler is negative for thrombosis. -Diabetes mellitus with hemoglobin A1c of 8.0. Continue Lantus and NovoLog. - per endo -Debility, PT with recommendation for shelter facility placement to improve strength. -Homelessness Further recommendations based on clinical course. Plan of care discussed with Jenniffer Lerma. Result Diagram: 07/20/18 0430 07/20/18 1508 Results 24hrs Laboratory Tests Test 07/21/18 17:36 07/21/18 20:30 07/21/18 21:35 07/21/18 22:05 Bedside Glucose 77 182 Random Cortisol 5.9 12.6 Test 07/21/18 22:34 07/22/18 01:52 07/22/18 01:55 07/22/18 08:32 Random Cortisol 9.2 Bedside Glucose 323 H 366 H 323 H Test 07/22/18 13:22 Bedside Glucose 123 Exam/Review of Systems Vital Signs Vitals Vital Signs Date Temp Pulse Resp B/P (MAP) Pulse Ox O2 O2 Flow FiO2 Time Delivery Rate 07/22/18 98.5 68 14 108/63 95 Room Air 08:20 (78) Intake and Output 07/21/18 07/21/18 07/22/18 1515:00 23:00 07:00 IntakeIntake Total 660 ml 320 ml 680 ml OutputOutput Total 1501 ml 301 ml BalanceBalance 660 ml -1181 ml 379 ml Medications Medications Current Medications IV Flush (NS 3 ml) 3 ml PER PROTOCOL IV ; Start 06/28/18 at 20:00 Ondansetron HCl (Zofran Inj) 4 mg Q6H PRN IV NAUSEA AND/OR VOMITING; Start 06/28/18 at 20:00 Enoxaparin Sodium (Lovenox) 30 mg DAILY SC Last administered on 07/22/18at 08:36; Admin Dose 30 MG; Start 06/29/18 at 09:00 Miscellaneous Information 1 ea NOTE XX ; Start 06/29/18 at 16:30 Glucose (Glutose) 15 gm Q15M PRN PO DECREASED GLUCOSE Last administered on 07/17/18 20:09; Admin Dose 15 GM; Start 06/29/18 at 16:30 Glucose (Glutose) 22.5 gm Q15M PRN PO DECREASED GLUCOSE; Start 06/29/18 at 16:30 Dextrose (D50w Syringe) 25 ml Q15M PRN IV DECREASED GLUCOSE; Start 06/29/18 at 16:30 Dextrose (D50w Syringe) 50 ml Q15M PRN IV DECREASED GLUCOSE; Start 06/29/18 at 16:30 Glucagon (Glucagen) 1 mg Q15M PRN IM DECREASED GLUCOSE; Start 06/29/18 at 16:30 Glucose (Glutose) 15 gm Q15M PRN BUCCAL DECREASED GLUCOSE Last administered on 07/02/18at 08:04; Admin Dose 15 GM; Start 06/29/18 at 16:30 Famotidine (Pepcid) 20 mg Q12 PO Last administered on 07/22/18 08:33; Admin Dose 20 MG; Start 06/29/18 at 21:00 Diagnostic Test (Pha) (Accu-Chek) 1 ea 02 XX Last administered on 07/22/18 01:56; Admin Dose 1 EA; Start 07/05/18 at 02:00 Insulin Aspart (Novolog Insulin Pen) NOVOLOG *MILD* ALGORITHM WITH MEALS BEDTIME SC Last administered on 07/22/18 08:37; Admin Dose 5 UNIT; Start 07/04/18 at 21:00 Metformin HCl (Glucophage) 500 mg WITH BREAKFAST PO Last administered on 07/22/18 08:33; Admin Dose 500 MG; Start 07/10/18 at 07:50 Metformin HCl (Glucophage) 500 mg WITH DINNER PO Last administered on 07/21/18 17:36; Admin Dose 500 MG; Start 07/09/18 at 17:55 Acetaminophen/ Hydrocodone Bitart ([place] (5/325)) 1 tab Q4H PRN PO MODERATE PAIN LEVEL 4-6 Last administered on 07/22/18at 11:39; Admin Dose 1 TAB; Start 07/10/18 at 16:30 Diphenhydramine HCl (Benadryl) 25 mg Q6H PRN PO ITCHING Last administered on 07/19/18 18:57; Admin Dose 25 MG; Start 07/10/18 at 20:30 Lorazepam (Ativan) 0.5 mg Q6H PRN PO ANXIETY Last administered on 07/21/18 23:35; Admin Dose 0.5 MG; Start 07/10/18 at 21:30 Zolpidem Tartrate (Ambien) 5 mg HS PRN PO INSOMNIA Last administered on 07/22/18 01:44; Admin Dose 5 MG; Start 07/11/18 at 21:30 Cromolyn Sodium (Nasalcrom) 1 spray TID PRN NASAL NASAL CONGESTION Last administered on 07/17/18 01:28; Admin Dose 1 SPRAY; Start 07/12/18 at 05:04 Insulin Aspart (Novolog Insulin Pen) 8 unit WITH BREAKFAST LUNCH SC Last administered on 07/22/18 13:24; Admin Dose 8 UNIT; Start 07/20/18 at 07:50 Insulin Aspart (Novolog Insulin Pen) 8 unit WITH DINNER SC Last administered on 07/20/18 18:03; Admin Dose 8 UNIT; Start 07/20/18 at 17:55 Insulin Glargine (Lantus) 20 units DAILY@2000 SC Last administered on 07/21/18 20:33; Admin Dose 20 UNITS; Start 07/20/18 at 20:00 Cyanocobalamin (Vitamin B12) 1,000 mcg DAILY PO Last administered on 07/22/18 10:39; Admin Dose 1,000 MCG; Start 07/21/18 at 09:00 Pioglitazone HCl (Actos) 30 mg DAILY PO Last administered on 07/22/18 08:34; Admin Dose 30 MG; Start 07/21/18 at 10:30 Midodrine (Proamatine) 5 mg TID@,,17 PO Last administered on 07/22/18 13:25; Admin Dose 5 MG; Start 07/21/18 at 13:00 CHRIS DEL REAL Jul 22, 2018 14:24
[2018-07-22 15:38] VITALS: BP 103/58; PULSE 77; RESP 16
[2018-07-22] MEDS: LORAZEPAM 0.5 MG TAB PO PRN (16:34)
[2018-07-22 18:00] VITALS: BP 98/68; PULSE 62; RESP 16
[2018-07-22 20:20] VITALS: BP 136/76; PULSE 66; RESP 18
[2018-07-22] MEDS: INSULIN GLARGINE [LANTus] (100 UNITS/ML) SYG SC SCH (22:13)
[2018-07-23 02:00] VITALS: BP 111/59; PULSE 66; RESP 18
[2018-07-23] MEDS: ACCU-CHEK XX SCH (02:00)
[2018-07-23] MEDS: LORAZEPAM 0.5 MG TAB PO PRN ×3 (05:41→18:21)
[2018-07-23 07:22] VITALS: BP 121/62; PULSE 72; RESP 19
[2018-07-23] MEDS: PIOGLITAZONE 30 MG TAB PO SCH (09:08)
[2018-07-23] MEDS: FAMOTIDINE 20 MG TAB PO SCH (09:08)
[2018-07-23] MEDS: CYANOCOBALAMIN 500 MCG TAB PO SCH (09:08)
[2018-07-23] MEDS: metFORMIN 500 MG TAB PO SCH ×2 (09:09→18:17)
[2018-07-23] MEDS: INSULIN ASPART [NOVOLOG] 3 ML PEN SC SCH ×7 (09:09→17:55)
[2018-07-23] MEDS: ENOXAPARIN 30 MG/0.3 ML SYG SC SCH (09:11)
[2018-07-23] MEDS: MIDODRINE 5 MG TAB PO SCH ×3 (09:15→18:17)
--- NOTE | 2018-07-23 10:50 | CONS ---
Date/Time of Note Date/Time of Note DATE: 07/23/18 TIME: 10:46 Assessment/Plan Assessment/Plan Problems: (1) Diabetes mellitus type 2 in nonobese Status: Chronic Comment: Sugar control is doing relatively well. We will make some minor adjustments in his regimen. (2) Diabetic peripheral neuropathy Status: Chronic Comment: This is noted. Of more concern is the autonomic neuropathy. Actually believe he is responding somewhat to the midodrine and would actually do well if we could get him to cooperate with the elevation of the head of the bed. He is exercising his right of self-determination and not cooperating. (3) B12 deficiency Status: Chronic Comment: On replacement therapy (4) Orthostasis Status: Chronic Comment: As above. I believe this is autonomic neuropathy. Again if we can try and work without it will slowly improve. This does take some time and wear hand strong by the patient's noncooperative weakness. I have a suspicion that there is a major depressive disorder going on here and he would do well with treatment but we need to pick an antidepressant that would not cause orthostasis as a side effect. Management of depression as per primary team (5) Debility, unspecified Status: Chronic Comment: Management of depression as per primary team Result Diagram: 07/20/18 0430 07/20/18 1508 Results 24hrs Laboratory Tests Test 07/22/18 13:22 07/22/18 17:41 07/22/18 22:03 07/23/18 02:33 Bedside Glucose 123 173 221 H 164 Test 07/23/18 09:07 Bedside Glucose 121 Consultation Date/Type/Reason Admit Date/Time Jun 28, 2018 at 17:18 Initial Consult Date 07/20/18 Type of Consult Endocrine Reason for Consultation Diabetes mellitus type 2 with complications including peripheral neuropathy, probable autonomic neuropathy with orthostasis etc. Requesting Provider: CHRIS DEL REAL 24 HR Interval Summary Free Text/Dictation Patient reports he feels terrible. Detailed Summary Cardiovascular: no complaints Endocrine: no complaints Exam/Review of Systems Vital Signs Vitals Vital Signs Date Temp Pulse Resp B/P (MAP) Pulse Ox O2 O2 Flow FiO2 Time Delivery Rate 07/23/18 98.2 72 19 121/62 96 07:22 (81) 07/23/18 Room Air 02:00 Intake and Output 07/22/18 07/22/1819 1515:00 23:00 07:00 IntakeIntake Total 500 ml 300 ml 830 ml OutputOutput Total 300 ml BalanceBalance 500 ml 0 ml 830 ml Exam Patient lying in bed with the bed flat. Please note I did explain to the salvador coronel on 2 prior occasions about the rationale and benefits of keeping the head of the bed elevated 30 degrees at all times. Patient reports that he remembered that. Constitutional: alert, oriented Respiratory: clear to auscultation, normal air movement Gastrointestinal: soft, nl liver, spleen, non-tender Medications Medications Current Medications IV Flush (NS 3 ml) 3 ml PER PROTOCOL IV ; Start 06/28/18 at 20:00 Ondansetron HCl (Zofran Inj) 4 mg Q6H PRN IV NAUSEA AND/OR VOMITING; Start 06/28/18 at 20:00 Enoxaparin Sodium (Lovenox) 30 mg DAILY SC Last administered on 07/23/18at 09:11; Admin Dose 30 MG; Start 06/29/18 at 09:00 Miscellaneous Information 1 ea NOTE XX ; Start 06/29/18 at 16:30 Glucose (Glutose) 15 gm Q15M PRN PO DECREASED GLUCOSE Last administered on 07/17/18at 20:09; Admin Dose 15 GM; Start 06/29/18 at 16:30 Glucose (Glutose) 22.5 gm Q15M PRN PO DECREASED GLUCOSE; Start 06/29/18 at 16:30 Dextrose (D50w Syringe) 25 ml Q15M PRN IV DECREASED GLUCOSE; Start 06/29/18 at 16:30 Dextrose (D50w Syringe) 50 ml Q15M PRN IV DECREASED GLUCOSE; Start 06/29/18 at 16:30 Glucagon (Glucagen) 1 mg Q15M PRN IM DECREASED GLUCOSE; Start 06/29/18 at 16:30 Glucose (Glutose) 15 gm Q15M PRN BUCCAL DECREASED GLUCOSE Last administered on 07/02/18at 08:04; Admin Dose 15 GM; Start 06/29/18 at 16:30 Famotidine (Pepcid) 20 mg Q12 PO Last administered on 07/23/18at 09:08; Admin Dose 20 MG; Start 06/29/18 at 21:00 Diagnostic Test (Pha) (Accu-Chek) 1 ea 02 XX Last administered on 07/22/18 01:56; Admin Dose 1 EA; Start 07/05/18 at 02:00 Insulin Aspart (Novolog Insulin Pen) NOVOLOG *MILD* ALGORITHM WITH MEALS BEDTIME SC Last administered on 07/22/18 22:11; Admin Dose 2 UNIT; Start 07/04/18 at 21:00 Metformin HCl (Glucophage) 500 mg WITH BREAKFAST PO Last administered on 07/23/18 09:09; Admin Dose 500 MG; Start 07/10/18 at 07:50 Metformin HCl (Glucophage) 500 mg WITH DINNER PO Last administered on 07/22/18 17:43; Admin Dose 500 MG; Start 07/09/18 at 17:55 Acetaminophen/ Hydrocodone Bitart ([place] (5/325)) 1 tab Q4H PRN PO MODERATE PAIN LEVEL 4-6 Last administered on 07/22/18 20:31; Admin Dose 1 TAB; Start 07/10/18 at 16:30 Diphenhydramine HCl (Benadryl) 25 mg Q6H PRN PO ITCHING Last administered on 07/19/18 18:57; Admin Dose 25 MG; Start 07/10/18 at 20:30 Lorazepam (Ativan) 0.5 mg Q6H PRN PO ANXIETY Last administered on 07/23/18 05:41; Admin Dose 0.5 MG; Start 07/10/18 at 21:30 Zolpidem Tartrate (Ambien) 5 mg HS PRN PO INSOMNIA Last administered on 07/22/18 22:26; Admin Dose 5 MG; Start 07/11/18 at 21:30 Cromolyn Sodium (Nasalcrom) 1 spray TID PRN NASAL NASAL CONGESTION Last administered on 07/17/18 01:28; Admin Dose 1 SPRAY; Start 07/12/18 at 05:04 Insulin Aspart (Novolog Insulin Pen) 8 unit WITH BREAKFAST LUNCH SC Last administered on 07/23/18 10:07; Admin Dose 8 UNIT; Start 07/20/18 at 07:50 Insulin Aspart (Novolog Insulin Pen) 8 unit WITH DINNER SC Last administered on 07/22/18 17:46; Admin Dose 8 UNIT; Start 07/20/18 at 17:55 Insulin Glargine (Lantus) 20 units DAILY@2000 SC Last administered on 07/22/18at 22:13; Admin Dose 20 UNITS; Start 07/20/18 at 20:00 Cyanocobalamin (Vitamin B12) 1,000 mcg DAILY PO Last administered on 07/23/18at 09:08; Admin Dose 1,000 MCG; Start 07/21/18 at 09:00 Pioglitazone HCl (Actos) 30 mg DAILY PO Last administered on 07/23/18at 09:08; Admin Dose 30 MG; Start 07/21/18 at 10:30 Midodrine (Proamatine) 5 mg TID@,,17 PO Last administered on 07/23/18at 09:15; Admin Dose 5 MG; Start 07/21/18 at 13:00 MEGHNA SHARP MD Jul 23, 2018 10:50
[2018-07-23] MEDS: HYDROCODONE/APAP (5/325) TAB PO PRN (13:03)
[2018-07-23] MEDS ORDERED: METF-849 PO (16:59)
[2018-07-23] MEDS ORDERED: Insulin Glargine SC (16:59)
[2018-07-23] MEDS ORDERED: NOVO3I SC (16:59)
[2018-07-23] MEDS ORDERED: PIOG30TA12 PO (16:59)
[2018-07-23] MEDS ORDERED: MIDO5TAB PO (16:59)
[2018-07-23] MEDS ORDERED: CYAN500T46 PO (16:59)
[2018-07-23] MEDS ORDERED: FAMO20TA18 PO (16:59)
[2018-07-23] MEDS ORDERED: HYDR-3601 PO (17:01)
[2018-07-23] MEDS ORDERED: LORA-441 PO (17:01)
[2018-07-23 19:00] VITALS: BP 110/65; PULSE 99; RESP 20
[2018-07-23] MEDS ORDERED: INSULIN GLARGINE [LANTus] (100 UNITS/ML) SYG SC SCH (20:00)
--- NOTE | 2018-07-23 20:30 | DS ---
Date/Time of Note Date/Time of Note DATE: 07/23/18 TIME: 20:24 Discharge Summary Admission/Discharge Info Admit Date/Time Jun 28, 2018 at 17:18 Discharge Date/Time Jul 23, 2018 at 19:05 Patient Condition: Stable Hx of Present Illness The patient is a 62-year-old homeless gentleman with history of diabetes was presented to emergency room secondary to syncopal episode lasting several minutes. Patient has no residual weakness and during the examination in the emergency room is awake alert and oriented. Patient is admitted for further evaluation and management to telemetry floor. Hospital Course Patient discharged to assisted living facility. -Status post syncope, patient is awake alert and oriented x3, no syncopal episodes noted during hospital stay. 2D echo with preserved ejection fraction, brain CT is negative for acute stroke, carotid Doppler is negative for thrombosis. -Diabetes mellitus with hemoglobin A1c of 8.0. Continue Lantus and NovoLog. Jenniffer Herrera is following in endocrinology consultation. -B12 the patient deficiency, continue supplements -Poor compliance with diabetic diet -Debility, s/p eval by PT. -Homelessness Plan of care discussed with Dr. Lerma. Home Meds Active Scripts Lorazepam* (Ativan*) 0.5 Mg Tablet, 0.5 MG PO Q6H PRN for ANXIETY, #30 TAB Prov:SUJATA COLVIN 07/23/18 Hydrocodone Bit-Acetaminophen (Hydrocodone Bit-APAP) 5-325MG Tablet, 1 TAB PO Q4H PRN for MODERATE PAIN LEVEL 4-6, #20 TAB Prov:SUJATA COLVIN 07/23/18 Cyanocobalamin* (Vitamin B12*) 500 Mcg Tab, 1000 MCG PO DAILY for 30 Days, TAB Prov:SUJATA COLVIN 07/23/18 Pioglitazone Hcl* (Actos*) 30 Mg Tablet, 30 MG PO DAILY for 30 Days, TAB Prov:SUJATA COLVIN 07/23/18 Metformin* (Glucophage*) 500 Mg Tab, 500 MG PO WITH BREAKFAST DINNE for 30 Days, TAB Prov:SUJATA COLVIN 07/23/18 Insulin Aspart* (Novolog Insulin Pen*) 100 Unit/Ml Soln, 8 UNIT SC TIDM A for 30 Days Prov:SUJATA COLVIN 07/23/18 [Insulin Glargine] 100 UNITS/ML SOLN No Conflict Check, 21 UNITS SC DAILY@1999 for 30 Days Prov:SUJATA COLVIN 07/23/18 Famotidine* (Famotidine*) 20 Mg Tablet, 20 MG PO Q12 for 30 Days, TAB Prov:SUJATA COLVIN 07/23/18 Midodrine* (Midodrine*) 5 Mg Tablet, 5 MG PO TID@09,13,17 for 14 Days, TAB Prov:SUJATA COLVIN 07/23/18 Discontinued Reported Medications Insulin Glargine* (Lantus*) 100 Unit/Ml Soln, 30 UNIT SC BID, #1 VIAL 06/28/18 Follow-up Plan f/up with PMD in 2 weeks. Primary Care Provider Care Physician No Primary Time spent on discharge: > 30 minutes Pending Labs Laboratory Tests Test 07/22/18 22:03 07/23/18 02:33 07/23/18 09:07 07/23/18 12:35 Bedside 221 164 121 162 Glucose mg/dL (70-220) mg/dL (70-220) mg/dL (70-220) mg/dL (70-220) Test 07/23/18 17:47 07/23/18 18:04 07/23/18 18:19 07/23/18 18:32 Bedside 65 70 135 144 Glucose mg/dL (70-220) mg/dL (70-220) mg/dL (70-220) mg/dL (70-220) SUJATA COLVIN Jul 23, 2018 20:30
[2018-07-24] MEDS ORDERED: INSULIN ASPART [NOVOLOG] 3 ML PEN SC SCH ×2 (07:50→17:55)
[2018-08-06] MEDS ORDERED: Insulin Glargine SC (14:28)
[2018-08-06] MEDS ORDERED: DOXY100T2 PO (14:28)
[2018-08-06] MEDS ORDERED: PHEN-717 PO (14:28)
[2018-08-06] MEDS ORDERED: NOVO3I SC (14:28)
[2018-08-06] MEDS ORDERED: MIDO5TAB PO (14:28)
[2018-08-06] MEDS ORDERED: DIGO125T PO (14:28)
[2018-08-06] MEDS ORDERED: HYDR-3601 PO (14:28)
[2018-08-06] MEDS ORDERED: LORA-441 PO (14:28)
[2018-08-06] MEDS ORDERED: CYAN500T46 PO (14:28)
== END 2018-07-23 19:05 | DRG 639 ==
LOC: E/R 12:57 → TEL 17:18 → MS1 07-02 17:27
PROVIDERS: ADMIT Internal Medicine; ATTEND Internal Medicine
DX: E11.65 Type 2 diabetes mellitus with hyperglycemia (principal); R55 Syncope and collapse; E11.42 Type 2 diabetes mellitus with diabetic polyneuropathy; E53.8 Deficiency of other specified B group vitamins; F17.210 Nicotine dependence, cigarettes, uncomplicated; I95.1 Orthostatic hypotension; R53.81 Other malaise; Z91.11 Patient's noncompliance with dietary regimen; Z91.19 Patient's noncompliance with other medical treatment and regimen; Z59.0 Homelessness; Z79.4 Long term (current) use of insulin
CPT/HCPCS: 36415; 70450; 71045; 71250; 80048; 80053; 80061; 81001; 81003; 82043; 82306; 82533; 82607; 82962; 83036; 84403; 84443; 84484; 84681; 85025; 86592; 86803; 87340; 93005; 93306; 93880; 96360; 96361; 97110; 97116; 97161; 97530; J0131; J0833; J1071; J1200; J1650; J1815; J7030